=== PATIENT | male | born 1960 | race Caucasian/White ===

== ENCOUNTER 2017-08-05 20:30 | Observation (INO) | payer MEDICARE, SELFPAY ==
[~2017-08-05] VITALS: Ht 185.4 cm; Wt 96.3 kg
[~2017-08-05 20:30] MED LIST: ASPI325 PO; ASPI81CH PO; AZIT250 PO; CEPH500 PO; Ceftriaxone2 G1 IV; Cleocin HCl300 MG PO; FURO20 PO; Flonase 0.05% N16 GM; GLIP2.5ER PO; IBUP600 PO; INSLI100I; INSUASPI; INSULANPEN SC; IRBE75 PO; LORA.5 PO; METF500 PO; NYST100SU SS; OMEP40CA12; PARO20 PO; Percocet 5-3251 EACH PO; Prilosec Otc20 MG; Prilosec Otc20 MG PO; TAMS.4ER PO
[2017-08-05 20:50] LABS: BASOPHILS ABSOLUTE AUTO 0.05 K/mm3 (0.00-0.23); BASOPHILS PERCENT AUTO 1 % (0-2); EOSINOPHILS PERCENT AUTO 2 % (0-6); Hematocrit 38.1 % (37.0-53.0); Hemoglobin 12.6 g/dL (13.5-17.5); IMMATURE GRAN ABSOLUTE AUTO 0.02 K/mm3 (0.00-0.10); IMMATURE GRAN PERCENT AUTO 0 % (0-1); LYMPHOCYTES ABSOLUTE AUTO 1.07 K/mm3 (0.84-5.20); LYMPHOCYTES PERCENT AUTO 21 % (21-46); MONOCYTES PERCENT AUTO 8 % (4-13); Mean Corpuscular HGB 29.1 pg (26.0-34.0); Mean Corpuscular HGB Conc 33.1 g/dL (31.5-36.5); Mean Corpuscular Volume 88 fL (80-100); NEUTROPHILS ABSOLUTE AUTO 3.57 K/mm3 (1.96-9.15); NEUTROPHILS PERCENT AUTO 69 % (41-73); Platelet Count 100 K/mm3 (150-400); RDW Coefficient Variation 16.5 % (11.7-14.2); RDW Standard Deviation 52.5 fL (35.1-46.3); Red Blood Cell Count 4.33 M/mm3 (4.30-5.90); White Blood Cell Count 5.21 K/mm3 (4.00-11.30)
[2017-08-05 21:10] LABS: Alanine Aminotransfer (ALT/SGP 74 U/L (12-78); Albumin, Blood 2.9 g/dL (3.4-5.0); Albumin/Globulin Ratio 0.6 (0.8-1.8); Alk Phos 163 U/L (50-136); Anion Gap 11 mmol/L (6-16); Aspartate Aminotrans (AST/SGOT 83 U/L (12-37); Bilirubin, Total 0.4 mg/dL (0.1-1.0); Blood Urea Nitrogen 22 mg/dL (8-24); Bun/Creatinine Ratio 18.5 (12.0-20.0); CO2, Blood 24 mmol/L (21-32); Calcium, Blood 8.3 mg/dL (8.5-10.1); Chloride, Blood 106 mmol/L (98-108); Creatinine, Blood 1.19 mg/dL (0.60-1.20); Globulin, Blood 4.6 g/dL (2.2-4.0); Glomerular Filtration Rate >60 (60-); Glucose, Blood 233 mg/dL (70-99); Potassium, Blood 4.3 mmol/L (3.5-5.5); Sodium, Blood 141 mmol/L (136-145); Total Protein, Blood 7.5 g/dL (6.4-8.2); Troponin I <0.015 ng/mL (0.000-0.040)
[2017-08-05 21:15] LABS: Calcium, Ionized (POC) 1.11 mmol/L (1.10-1.46); Chloride (POC) 104 mmol/L (98-108); Creatinine (POC) 1.4 mg/dL (0.8-1.3); Glucose (ISTAT POC) 269 mg/dL (70-99); Hemoglobin (POC) 11.9 g/dL (13.5-17.5); Potassium (POC) 4.2 mmol/L (3.5-5.5); Sodium (POC) 141 mmol/L (135-148); Total CO2 (POC) 21 mmol/L (21-32)
[2017-08-06 02:57] LABS: BASOPHILS ABSOLUTE AUTO 0.02 K/mm3 (0.00-0.23); BASOPHILS PERCENT AUTO 1 % (0-2); EOSINOPHILS ABSOLUTE AUTO 0.07 K/mm3 (0.00-0.68); EOSINOPHILS PERCENT AUTO 2 % (0-6); Hematocrit 35.2 % (37.0-53.0); Hemoglobin 11.8 g/dL (13.5-17.5); IMMATURE GRAN ABSOLUTE AUTO 0.02 K/mm3 (0.00-0.10); IMMATURE GRAN PERCENT AUTO 1 % (0-1); LYMPHOCYTES ABSOLUTE AUTO 0.71 K/mm3 (0.84-5.20); LYMPHOCYTES PERCENT AUTO 23 % (21-46); MONOCYTES PERCENT AUTO 10 % (4-13); Mean Corpuscular HGB 29.7 pg (26.0-34.0); Mean Corpuscular HGB Conc 33.5 g/dL (31.5-36.5); Mean Corpuscular Volume 89 fL (80-100); Mean Platelet Volume 10.8 fL (9.1-12.4); NEUTROPHILS ABSOLUTE AUTO 1.99 K/mm3 (1.96-9.15); NEUTROPHILS PERCENT AUTO 64 % (41-73); Platelet Count 81 K/mm3 (150-400); RDW Coefficient Variation 16.5 % (11.7-14.2); RDW Standard Deviation 53.4 fL (35.1-46.3); Red Blood Cell Count 3.97 M/mm3 (4.30-5.90); White Blood Cell Count 3.11 K/mm3 (4.00-11.30)
[2017-08-06 03:20] LABS: CPK Creatine Kinase 76 U/L (39-308); Creatine Kinase MB Index 2.6 (0.0-4.0); Troponin I <0.015 ng/mL (0.000-0.040)
[2017-08-06 03:22] LABS: Cholesterol 141 mg/dL (50-200); Triglycerides 233 mg/dL (30-160); Troponin I <0.015 ng/mL (0.000-0.040)
[2017-08-06] MEDS ORDERED: ATOR20 PO (09:02)
[2017-08-06] MEDS ORDERED: METO25 PO (09:03)
[2017-08-06 09:09] LABS: CPK Creatine Kinase 67 U/L (39-308); Troponin I <0.015 ng/mL (0.000-0.040)
== END 2017-08-06 10:36 | disposition home or self-care (01) ==
LOC: ER 20:30 → PCU 20:31
PROVIDERS: Emergency Medicine; Family Medicine
DX: R07.89 Other chest pain (principal); R55 Syncope and collapse; I10 Essential (primary) hypertension; E11.9 Type 2 diabetes mellitus without complications; J90 Pleural effusion, not elsewhere classified; B19.20 Unspecified viral hepatitis C without hepatic coma; D64.9 Anemia, unspecified; D69.6 Thrombocytopenia, unspecified; E66.9 Obesity, unspecified; I82.90 Acute embolism and thrombosis of unspecified vein; F10.10 Alcohol abuse, uncomplicated; F17.210 Nicotine dependence, cigarettes, uncomplicated; Z79.82 Long term (current) use of aspirin; Z79.4 Long term (current) use of insulin; Z68.27 Body mass index [BMI] 27.0-27.9, adult; Z79.899 Other long term (current) drug therapy; Z86.19 Personal history of other infectious and parasitic diseases
CPT/HCPCS: 36415; 71046; 80047; 80053; 82465; 82550; 82553; 82947; 83880; 84478; 84484; 85014; 85025; 93005; 93010; 94762; 96361; 96372; 96374; 99285; G0378; J1650; J1815; J2405; J7030

== ENCOUNTER 2018-01-19 09:05 | Inpatient (IN) | payer MEDICARE ==
[~2018-01-19] VITALS: Ht 185.4 cm; Wt 94.2 kg
[~2018-01-19 09:05] MED LIST changes: +ATOR20 PO; +METO25 PO
[2018-01-19 09:30] LABS: Calcium, Ionized (POC) 1.02 mmol/L (1.10-1.46); Chloride (POC) 85 mmol/L (98-108); Creatinine (POC) 0.9 mg/dL (0.8-1.3); Glucose (ISTAT POC) >700 mg/dL (70-99); Hemoglobin (POC) 10.5 g/dL (13.5-17.5); Potassium (POC) 3.2 mmol/L (3.5-5.5); Sodium (POC) 126 mmol/L (135-148); Total CO2 (POC) 22 mmol/L (21-32)
[2018-01-19 09:43] LABS: BASOPHILS ABSOLUTE AUTO 0.04 K/mm3 (0.00-0.23); BASOPHILS PERCENT AUTO 0 % (0-2); EOSINOPHILS PERCENT AUTO 0 % (0-6); Hematocrit 29.5 % (37.0-53.0); Hemoglobin 7.5 g/dL (13.5-17.5); IMMATURE GRAN ABSOLUTE AUTO 0.05 K/mm3 (0.00-0.10); IMMATURE GRAN PERCENT AUTO 1 % (0-1); LYMPHOCYTES ABSOLUTE AUTO 0.38 K/mm3 (0.84-5.20); LYMPHOCYTES PERCENT AUTO 4 % (21-46); MONOCYTES ABSOLUTE AUTO 0.53 K/mm3 (0.16-1.47); MONOCYTES PERCENT AUTO 6 % (4-13); Mean Corpuscular HGB 18.2 pg (26.0-34.0); Mean Corpuscular HGB Conc 25.4 g/dL (31.5-36.5); Mean Corpuscular Volume 72 fL (80-100); NEUTROPHILS ABSOLUTE AUTO 8.16 K/mm3 (1.96-9.15); NEUTROPHILS PERCENT AUTO 89 % (41-73); Platelet Count 100 K/mm3 (150-400); RDW Coefficient Variation 18.2 % (11.7-14.2); RDW Standard Deviation 46.7 fL (35.1-46.3); Red Blood Cell Count 4.12 M/mm3 (4.30-5.90); White Blood Cell Count 9.16 K/mm3 (4.00-11.30)
[2018-01-19 09:51] LABS: PCO2 Arterial 30 mmHg (35-45); PO2 Arterial 79.8 mmHg (80-100); pH Blood Arterial 7.44 (7.35-7.45)
[2018-01-19 10:01] LABS: Troponin I <0.015 ng/mL (0.000-0.040)
[2018-01-19 10:07] LABS: Alanine Aminotransfer (ALT/SGP 46 U/L (12-78); Albumin, Blood 2.8 g/dL (3.4-5.0); Albumin/Globulin Ratio 0.6 (0.8-1.8); Alk Phos 195 U/L (50-136); Anion Gap 20 mmol/L (6-16); Aspartate Aminotrans (AST/SGOT 34 U/L (12-37); Bilirubin, Total 1.1 mg/dL (0.1-1.0); Blood Urea Nitrogen 15 mg/dL (8-24); Bun/Creatinine Ratio 16.3 (12.0-20.0); CO2, Blood 19 mmol/L (21-32); Calcium, Blood 8.2 mg/dL (8.5-10.1); Chloride, Blood 86 mmol/L (98-108); Creatinine, Blood 0.92 mg/dL (0.60-1.20); Globulin, Blood 4.8 g/dL (2.2-4.0); Glomerular Filtration Rate >60 (60-); Potassium, Blood 3.2 mmol/L (3.5-5.5); Sodium, Blood 125 mmol/L (136-145); Total Protein, Blood 7.6 g/dL (6.4-8.2)
[2018-01-19 10:10] LABS: Glucose, Blood 1023 mg/dL (70-99)
[2018-01-19 12:09] LABS: Glucose, Blood 944 mg/dL (70-99)
[2018-01-19] MEDS ORDERED: CHOL10002 (12:40)
[2018-01-19] MEDS ORDERED: Hair, Skin & N1 EACH PO (12:40)
[2018-01-19 13:54] LABS: Hematocrit 26.3 % (37.0-53.0)
[2018-01-19 14:21] LABS: Beta-hydroxybutyrate 6.3 mg/dL (0.2-2.8)
[2018-01-19 14:29] LABS: Albumin, Blood 2.7 g/dL (3.4-5.0); Anion Gap 14 mmol/L (6-16); Blood Urea Nitrogen 16 mg/dL (8-24); Bun/Creatinine Ratio 17.6 (12.0-20.0); CO2, Blood 24 mmol/L (21-32); Chloride, Blood 93 mmol/L (98-108); Creatinine, Blood 0.91 mg/dL (0.60-1.20); Glomerular Filtration Rate >60 (60-); Glucose, Blood 763 mg/dL (70-99); Phosphorus, Blood 2.2 mg/dL (2.5-4.9); Potassium, Blood 3.1 mmol/L (3.5-5.5); Sodium, Blood 131 mmol/L (136-145)
[2018-01-19 16:55] LABS: Glucose, Blood 679 mg/dL (70-99)
[2018-01-19 16:55] LABS: Glucose, Blood 611 mg/dL (70-99)
[2018-01-19 17:50] LABS: Albumin, Blood 2.3 g/dL (3.4-5.0); Anion Gap 10 mmol/L (6-16); Blood Urea Nitrogen 14 mg/dL (8-24); Bun/Creatinine Ratio 15.4 (12.0-20.0); CO2, Blood 25 mmol/L (21-32); Calcium, Blood 7.6 mg/dL (8.5-10.1); Chloride, Blood 101 mmol/L (98-108); Creatinine, Blood 0.91 mg/dL (0.60-1.20); Glomerular Filtration Rate >60 (60-); Glucose, Blood 585 mg/dL (70-99); Magnesium, Blood 1.9 mg/dL (1.6-2.4); Phosphorus, Blood 1.8 mg/dL (2.5-4.9); Potassium, Blood 3.6 mmol/L (3.5-5.5); Sodium, Blood 136 mmol/L (136-145)
[2018-01-19 17:54] LABS: Percent Saturation 3.6 % (20.0-50.0)
[2018-01-19] MEDS ORDERED: GABA300 PO (19:32)
[2018-01-19 19:45] LABS: Hematocrit 24.9 % (37.0-53.0); Hemoglobin 6.6 g/dL (13.5-17.5)
[2018-01-19 23:24] LABS: Albumin, Blood 2.3 g/dL (3.4-5.0); Anion Gap 9 mmol/L (6-16); Blood Urea Nitrogen 13 mg/dL (8-24); Bun/Creatinine Ratio 14.6 (12.0-20.0); CO2, Blood 25 mmol/L (21-32); Calcium, Blood 7.1 mg/dL (8.5-10.1); Chloride, Blood 106 mmol/L (98-108); Creatinine, Blood 0.89 mg/dL (0.60-1.20); Glomerular Filtration Rate >60 (60-); Glucose, Blood 320 mg/dL (70-99); Magnesium, Blood 1.8 mg/dL (1.6-2.4); Phosphorus, Blood 2.1 mg/dL (2.5-4.9); Potassium, Blood 3.4 mmol/L (3.5-5.5); Sodium, Blood 140 mmol/L (136-145)
[2018-01-20 04:26] LABS: BASOPHILS ABSOLUTE AUTO 0.02 K/mm3 (0.00-0.23); BASOPHILS PERCENT AUTO 0 % (0-2); EOSINOPHILS ABSOLUTE AUTO 0.14 K/mm3 (0.00-0.68); EOSINOPHILS PERCENT AUTO 2 % (0-6); Hematocrit 25.4 % (37.0-53.0); IMMATURE GRAN ABSOLUTE AUTO 0.06 K/mm3 (0.00-0.10); IMMATURE GRAN PERCENT AUTO 1 % (0-1); LYMPHOCYTES ABSOLUTE AUTO 1.02 K/mm3 (0.84-5.20); LYMPHOCYTES PERCENT AUTO 16 % (21-46); MONOCYTES PERCENT AUTO 6 % (4-13); Mean Corpuscular HGB 19.6 pg (26.0-34.0); Mean Corpuscular HGB Conc 27.6 g/dL (31.5-36.5); Mean Corpuscular Volume 71 fL (80-100); NEUTROPHILS ABSOLUTE AUTO 4.82 K/mm3 (1.96-9.15); NEUTROPHILS PERCENT AUTO 75 % (41-73); Platelet Count 84 K/mm3 (150-400); RDW Coefficient Variation 19.2 % (11.7-14.2); RDW Standard Deviation 48.8 fL (35.1-46.3); Red Blood Cell Count 3.58 M/mm3 (4.30-5.90); White Blood Cell Count 6.46 K/mm3 (4.00-11.30)
[2018-01-20 04:41] LABS: Anion Gap 8 mmol/L (6-16); Beta-hydroxybutyrate 0.6 mg/dL (0.2-2.8); Blood Urea Nitrogen 11 mg/dL (8-24); Bun/Creatinine Ratio 12.6 (12.0-20.0); CO2, Blood 25 mmol/L (21-32); Chloride, Blood 109 mmol/L (98-108); Creatinine, Blood 0.87 mg/dL (0.60-1.20); Glomerular Filtration Rate >60 (60-); Glucose, Blood 162 mg/dL (70-99); Phosphorus, Blood 2.2 mg/dL (2.5-4.9); Potassium, Blood 3.2 mmol/L (3.5-5.5); Sodium, Blood 142 mmol/L (136-145)
[2018-01-20 10:18] LABS: Hematocrit 29.8 % (37.0-53.0); Hemoglobin 8.3 g/dL (13.5-17.5)
[2018-01-20 14:22] LABS: Stool Occult Blood Guaiac 1 Neg (Neg)
[2018-01-20 16:12] LABS: Hematocrit 29.7 % (37.0-53.0); Hemoglobin 8.2 g/dL (13.5-17.5)
[2018-01-20 16:24] LABS: Albumin, Blood 2.3 g/dL (3.4-5.0); Anion Gap 7 mmol/L (6-16); Blood Urea Nitrogen 8 mg/dL (8-24); Bun/Creatinine Ratio 10.5 (12.0-20.0); CO2, Blood 25 mmol/L (21-32); Calcium, Blood 6.9 mg/dL (8.5-10.1); Chloride, Blood 109 mmol/L (98-108); Creatinine, Blood 0.76 mg/dL (0.60-1.20); Glomerular Filtration Rate >60 (60-); Glucose, Blood 147 mg/dL (70-99); Potassium, Blood 3.4 mmol/L (3.5-5.5); Sodium, Blood 141 mmol/L (136-145)
[2018-01-21 07:54] LABS: BASOPHILS ABSOLUTE AUTO 0.03 K/mm3 (0.00-0.23); BASOPHILS PERCENT AUTO 1 % (0-2); EOSINOPHILS ABSOLUTE AUTO 0.15 K/mm3 (0.00-0.68); EOSINOPHILS PERCENT AUTO 3 % (0-6); Hematocrit 28.5 % (37.0-53.0); IMMATURE GRAN ABSOLUTE AUTO 0.03 K/mm3 (0.00-0.10); IMMATURE GRAN PERCENT AUTO 1 % (0-1); LYMPHOCYTES ABSOLUTE AUTO 0.67 K/mm3 (0.84-5.20); LYMPHOCYTES PERCENT AUTO 15 % (21-46); MONOCYTES ABSOLUTE AUTO 0.41 K/mm3 (0.16-1.47); MONOCYTES PERCENT AUTO 9 % (4-13); Mean Corpuscular HGB 20.3 pg (26.0-34.0); Mean Corpuscular HGB Conc 28.1 g/dL (31.5-36.5); Mean Corpuscular Volume 72 fL (80-100); NEUTROPHILS ABSOLUTE AUTO 3.28 K/mm3 (1.96-9.15); NEUTROPHILS PERCENT AUTO 72 % (41-73); NRBC ABSOLUTE 0.02 K/mm3 (0.00-0.02); NRBC Auto 0.4 /100 WBC (0.0-0.2); Platelet Count 83 K/mm3 (150-400); RDW Coefficient Variation 18.8 % (11.7-14.2); RDW Standard Deviation 48.8 fL (35.1-46.3); Red Blood Cell Count 3.94 M/mm3 (4.30-5.90); White Blood Cell Count 4.57 K/mm3 (4.00-11.30)
[2018-01-21 08:10] LABS: Albumin, Blood 2.1 g/dL (3.4-5.0); Anion Gap 8 mmol/L (6-16); Blood Urea Nitrogen 11 mg/dL (8-24); Bun/Creatinine Ratio 11.5 (12.0-20.0); CO2, Blood 23 mmol/L (21-32); Calcium, Blood 7.3 mg/dL (8.5-10.1); Chloride, Blood 110 mmol/L (98-108); Creatinine, Blood 0.95 mg/dL (0.60-1.20); Glomerular Filtration Rate >60 (60-); Glucose, Blood 128 mg/dL (70-99); Phosphorus, Blood 2.2 mg/dL (2.5-4.9); Potassium, Blood 4.1 mmol/L (3.5-5.5); Sodium, Blood 141 mmol/L (136-145)
[2018-01-21] MEDS ORDERED: HUMALOG KW200 UNIT/1 SC ×2 (10:08→10:10)
[2018-01-21] MEDS ORDERED: K-Phos Origina500 MG PO (10:14)
[2018-01-21] MEDS ORDERED: DOCU100 PO (10:16)
[2018-01-21] MEDS ORDERED: FERROUS SULFATE PO (10:19)
== END 2018-01-21 10:53 | disposition home or self-care (01) | DRG 638 ==
LOC: ER 09:05 → ICUW 10:52
PROVIDERS: Emergency Medicine; Internal Medicine; Internal Medicine Gastroenterology
PROC: 0D578ZZ Destruction of Stomach, Pylorus, Via Natural or Artificial Opening Endoscopic (ICD-10-PCS; 2018-01-20)
PROC: 0D598ZZ Destruction of Duodenum, Via Natural or Artificial Opening Endoscopic (ICD-10-PCS; principal; 2018-01-20 13:30)
DX: E11.10 Type 2 diabetes mellitus with ketoacidosis without coma (principal); D62 Acute posthemorrhagic anemia; K76.6 Portal hypertension; Z79.4 Long term (current) use of insulin; Z79.82 Long term (current) use of aspirin; F17.210 Nicotine dependence, cigarettes, uncomplicated; S09.90XA Unspecified injury of head, initial encounter; I10 Essential (primary) hypertension; E11.40 Type 2 diabetes mellitus with diabetic neuropathy, unspecified; E78.5 Hyperlipidemia, unspecified; Z87.828 Personal history of other (healed) physical injury and trauma; E87.6 Hypokalemia; D50.9 Iron deficiency anemia, unspecified; D69.6 Thrombocytopenia, unspecified; I25.10 Atherosclerotic heart disease of native coronary artery without angina pectoris; I25.2 Old myocardial infarction; G56.00 Carpal tunnel syndrome, unspecified upper limb; K74.60 Unspecified cirrhosis of liver; B18.2 Chronic viral hepatitis C; E83.39 Other disorders of phosphorus metabolism; I99.8 Other disorder of circulatory system
CPT/HCPCS: 36415; 36430; 36600; 70450; 76705; 80047; 80048; 80053; 80069; 82010; 82105; 82271; 82272; 82728; 82803; 82947; 83036; 83540; 83550; 83735; 84100; 84484; 85014; 85018; 85025; 86850; 86900; 86901; 86923; 93005; 93010; 99285-25; C9113; J0696; J1430; J1815; J2405; J3480; J7030; J7040; J7060; J7120; P9016

== ENCOUNTER 2018-02-12 16:41 | Emergency (ER) | payer MEDICARE ==
[~2018-02-12] VITALS: Ht 193 cm; Wt 99.8 kg
[~2018-02-12 16:41] MED LIST changes: +CHOL10002; +DOCU100 PO; +FERROUS SULFATE PO; +GABA300 PO; +HUMALOG KW200 UNIT/1 SC; +Hair, Skin & N1 EACH PO; +K-Phos Origina500 MG PO
[2018-02-12 17:07] LABS: Hemoglobin 8.5 g/dL (13.5-17.5); Mean Corpuscular HGB Conc 28.3 g/dL (31.5-36.5); Mean Corpuscular Volume 74 fL (80-100); Mean Platelet Volume 10.7 fL (9.1-12.4); Platelet Count 130 K/mm3 (150-400); RDW Coefficient Variation 24.5 % (11.7-14.2); RDW Standard Deviation 65.5 fL (35.1-46.3); Red Blood Cell Count 4.05 M/mm3 (4.30-5.90); White Blood Cell Count 5.33 K/mm3 (4.00-11.30)
[2018-02-12 17:21] LABS: Anion Gap 10 mmol/L (6-16); Blood Urea Nitrogen 26 mg/dL (8-24); Bun/Creatinine Ratio 21.5 (12.0-20.0); CO2, Blood 23 mmol/L (21-32); Calcium, Blood 7.4 mg/dL (8.5-10.1); Chloride, Blood 108 mmol/L (98-108); Creatinine, Blood 1.21 mg/dL (0.60-1.20); Ethanol (Alcohol), Blood, Med 249 mg/dL; Glomerular Filtration Rate >60 (60-); Glucose, Blood 101 mg/dL (70-99); Potassium, Blood 3.9 mmol/L (3.5-5.5); Sodium, Blood 141 mmol/L (136-145)
[2018-02-12] MEDS ORDERED: Augmentin 875-1 EACH PO (18:13)
[2018-02-12] MEDS ORDERED: Ultram50 MG PO (18:23)
== END 2018-02-12 18:45 | disposition home or self-care (01) ==
LOC: ER 16:41
PROVIDERS: Emergency Medicine
DX: F10.129 Alcohol abuse with intoxication, unspecified (principal); S02.32XA Fracture of orbital floor, left side, initial encounter for closed fracture; S02.2XXA Fracture of nasal bones, initial encounter for closed fracture; S02.40DA Maxillary fracture, left side, initial encounter for closed fracture; E11.9 Type 2 diabetes mellitus without complications; I10 Essential (primary) hypertension; E78.5 Hyperlipidemia, unspecified; F17.210 Nicotine dependence, cigarettes, uncomplicated; Z79.899 Other long term (current) drug therapy; Z79.4 Long term (current) use of insulin; Y90.8 Blood alcohol level of 240 mg/100 ml or more; W18.30XA Fall on same level, unspecified, initial encounter
CPT/HCPCS: 70450; 70486; 72125; 80048; 85027; 99285-25; G0480

== ENCOUNTER 2018-09-12 13:39 | Inpatient (IN) | payer MEDICARE, SELFPAY ==
[~2018-09-12] VITALS: Ht 185.4 cm; Wt 100.5 kg
[~2018-09-12 13:39] MED LIST changes: +Augmentin 875-1 EACH PO; -GABA300 PO; -INSULANPEN SC; +Ultram50 MG PO
[2018-09-12 15:37] LABS: BASOPHILS ABSOLUTE AUTO 0.06 K/mm3 (0.00-0.23); BASOPHILS PERCENT AUTO 0 % (0-2); Hematocrit 35.2 % (37.0-53.0); Hemoglobin 11.7 g/dL (13.5-17.5); LYMPHOCYTES ABSOLUTE AUTO 0.29 K/mm3 (0.84-5.20); LYMPHOCYTES PERCENT AUTO 1 % (21-46); MONOCYTES ABSOLUTE AUTO 0.83 K/mm3 (0.16-1.47); MONOCYTES PERCENT AUTO 4 % (4-13); Mean Corpuscular HGB 30.2 pg (26.0-34.0); Mean Corpuscular HGB Conc 33.2 g/dL (31.5-36.5); Mean Corpuscular Volume 91 fL (80-100); Mean Platelet Volume 10.7 fL (9.1-12.4); Platelet Count 136 K/mm3 (150-400); RDW Coefficient Variation 13.3 % (11.7-14.2); RDW Standard Deviation 44.2 fL (35.1-46.3); Red Blood Cell Count 3.88 M/mm3 (4.30-5.90); White Blood Cell Count 22.24 K/mm3 (4.00-11.30)
[2018-09-12 15:40] LABS: EOSINOPHILS ABSOLUTE AUTO 0.05 K/mm3 (0.00-0.68); EOSINOPHILS PERCENT AUTO 0 % (0-6); IMMATURE GRAN ABSOLUTE AUTO 0.21 K/mm3 (0.00-0.10); IMMATURE GRAN PERCENT AUTO 1 % (0-1); NEUTROPHILS PERCENT AUTO 94 % (41-73)
[2018-09-12 15:58] LABS: Beta-hydroxybutyrate 10.2 mg/dL (0.2-2.8); Magnesium, Blood 1.9 mg/dL (1.6-2.4)
[2018-09-12 16:14] LABS: Albumin, Blood 2.2 g/dL (3.4-5.0); Albumin/Globulin Ratio 0.4 (0.8-1.8); Calcium, Blood 8.3 mg/dL (8.5-10.1); Creatinine, Blood 1.32 mg/dL (0.60-1.20); Globulin, Blood 5.9 g/dL (2.2-4.0); Total Protein, Blood 8.1 g/dL (6.4-8.2)
[2018-09-12 16:30] LABS: Calcium, Ionized (POC) 1.06 mmol/L (1.10-1.46); Chloride (POC) 90 mmol/L (98-108); Creatinine (POC) 1.3 mg/dL (0.8-1.3); Glucose (ISTAT POC) >700 mg/dL (70-99); Hemoglobin (POC) 12.6 g/dL (13.5-17.5); Potassium (POC) 5.9 mmol/L (3.5-5.5); Sodium (POC) 123 mmol/L (135-148); Total CO2 (POC) 21 mmol/L (21-32)
[2018-09-12 16:37] LABS: Base Excess Venous -6.6 mmol/L; Bicarbonate Venous 19.2 mmol/L (24.0-30.0); PCO2 Venous 41.6 mmHg (38-42); PO2 Venous 59.6 mmHg (38-42); pH Blood Venous 7.29 (7.34-7.37)
[2018-09-12] MEDS ORDERED: IRBE150 PO (16:52)
[2018-09-12] MEDS ORDERED: FURO40 PO (16:52)
[2018-09-12] MEDS ORDERED: Prozac20 MG PO (16:52)
[2018-09-12] MEDS ORDERED: Spironolactone100 MG PO (16:52)
[2018-09-12] MEDS ORDERED: OMEPRAZOLE MAGN20 MG PO (16:53)
[2018-09-12] MEDS ORDERED: Lopressor 25 mg25 MG PO (16:53)
[2018-09-12] MEDS ORDERED: BUSP5 PO (16:53)
[2018-09-12] MEDS ORDERED: GABA300 PO (16:54)
[2018-09-12] MEDS ORDERED: INSULANPEN SC (17:13)
[2018-09-12] MEDS ORDERED: Humalog100 UNIT/3 SC ×2 (17:24→17:26)
[2018-09-12] MEDS ORDERED: Apidra100 UNIT/2 (17:26)
[2018-09-12] MEDS ORDERED: THERA1 EACH PO (17:27)
[2018-09-12] MEDS ORDERED: ASPI81CH PO (17:27)
[2018-09-12] MEDS ORDERED: Ferosul325 MG PO (17:27)
[2018-09-12] MEDS ORDERED: Ibuprofen Ib200 MG PO (17:28)
[2018-09-12] MEDS ORDERED: Milk Thistle150 MG PO (17:29)
[2018-09-12 18:34] LABS: Glucose, Blood 685 mg/dL (70-99)
[2018-09-12 18:34] LABS: Influenza A Negative (NEGATIVE); Influenza B Negative (NEGATIVE)
--- NOTE | 2018-09-12 19:04 | NUR ---
ARRIVAL TO ICU 1824 - PT ARRIVES TO ICU AT THIS TIME. HE AWAKE, A/O, AND CALM. FLUSHED IN FACE BUT AFEBRILE AT THIS TIME. VSS. ARRIVES WITH INSULIN GTT AT 5 UNITS/HR; TITRATED TO 7 UNITS/HR BASED ON 1730 BLOOD GLUCOSE. BILAT CALCANEOUS ARE BLACK WITH FOUL ODOR BUT FEET ARE ELEVATED ON PILLOW. TO BEDSIDE. WILL GIVE BEDSIDE, HANDOFF REPORT TO NOC RN.
--- NOTE | 2018-09-12 19:15 | NUR ---
ASSUMED CARE ASSUMED CARE OF PATIENT. AWAKE AND ALERT. ORIENTED AND COOPERATIVE WITH CARE. REPOSTIONS SELF IN BED. FLAT AFFECT NOTED. SLOW VERBAL RESPONSE, BUT SPEECH IS CLEAR AND APPROPRIATE. MONITOR SHOWS NSR, RATE 80-90s. BP STABLE. REMAINS ON RA. RESPIRATIONS EVEN AND UNLABORED. DENIES C/O SOB OR DYSPNEA AT THIS TIME. BILATERAL LATERAL HEEL WOUNDS NOTED- SEE PICS. HEELS FLOATED OFF OF BED. C/O MILD DISCOMFORT IN HEELS, INCREASED WITH TOUCH. INSULIN GTT INFUSING @ 7UNITS/HR AT THIS TIME. VOIDING WITHOUT DIFFICULTY. DENIES C/O NAUSEA. SEE ADMIT ASSESSMENT FOR FULL ASSESSMENT.
[2018-09-12 19:44] LABS: Glucose, Blood 532 mg/dL (70-99)
--- NOTE | 2018-09-12 20:35 | NUR ---
CRITICAL LAB ENMANUEL BETANCOURT NP, NOTIFIED OF CRITICAL LACTIC ACID LEVEL OF 2.9 AND UPDATE ON STATUS. NEW ORDERS RECEIVED AT THIS TIME TO CLARIFY PREVIOUS IV FLUID ORDERS.
--- NOTE | 2018-09-12 23:30 | NUR ---
INSULIN GTT ENMANUEL BETANCOURT NP, NOTIFIED OF CURRENT CBG AND INSULIN GTT REQUIREMENTS WELL RECENT LACTIC ACID RESULT. NEW ORDERS RECEIVED TO STOP INSULIN GTT, CHECK CBG Q1H X 3, AND THEN CHANGE TO AC AND HS CBG WITH S/S COVERAGE.
--- NOTE | 2018-09-13 03:25 | NUR ---
CBG/INSULIN DR. VALDES NOTIFIED OF CBGs >200 SINCE INSULIN HAS BEEN OFF. NEW ORDER RECEIVED TO RESTART INSULIN GTT AT THIS TIME AND RE-EVALUATE CHANGING TO SQ INSULIN IN AM. INSULIN GTT RESTARTED AT 3UNITS/HR.
[2018-09-13 03:33] LABS: BASOPHILS ABSOLUTE AUTO 0.06 K/mm3 (0.00-0.23); BASOPHILS PERCENT AUTO 0 % (0-2); EOSINOPHILS ABSOLUTE AUTO 0.27 K/mm3 (0.00-0.68); EOSINOPHILS PERCENT AUTO 2 % (0-6); Hemoglobin 10.1 g/dL (13.5-17.5); IMMATURE GRAN ABSOLUTE AUTO 0.16 K/mm3 (0.00-0.10); IMMATURE GRAN PERCENT AUTO 1 % (0-1); LYMPHOCYTES ABSOLUTE AUTO 0.54 K/mm3 (0.84-5.20); LYMPHOCYTES PERCENT AUTO 3 % (21-46); MONOCYTES ABSOLUTE AUTO 0.77 K/mm3 (0.16-1.47); MONOCYTES PERCENT AUTO 4 % (4-13); Mean Corpuscular HGB 30.3 pg (26.0-34.0); Mean Corpuscular HGB Conc 33.7 g/dL (31.5-36.5); Mean Corpuscular Volume 90 fL (80-100); Mean Platelet Volume 10.1 fL (9.1-12.4); NEUTROPHILS ABSOLUTE AUTO 16.23 K/mm3 (1.96-9.15); NEUTROPHILS PERCENT AUTO 90 % (41-73); Platelet Count 108 K/mm3 (150-400); RDW Coefficient Variation 13.3 % (11.7-14.2); RDW Standard Deviation 43.9 fL (35.1-46.3); Red Blood Cell Count 3.33 M/mm3 (4.30-5.90); White Blood Cell Count 18.03 K/mm3 (4.00-11.30)
[2018-09-13 03:51] LABS: Anion Gap 8 mmol/L (6-16); Blood Urea Nitrogen 32 mg/dL (8-24); Bun/Creatinine Ratio 29.1 (12.0-20.0); CO2, Blood 21 mmol/L (21-32); Calcium, Blood 7.5 mg/dL (8.5-10.1); Chloride, Blood 103 mmol/L (98-108); Glomerular Filtration Rate >60 (60-); Glucose, Blood 270 mg/dL (70-99); Potassium, Blood 4.4 mmol/L (3.5-5.5)
[2018-09-13 03:53] LABS: Sodium, Blood 132 mmol/L (136-145)
--- NOTE | 2018-09-13 06:29 | NUR ---
SHIFT SUMMARY NO ACUTE CHANGES. PT OFF INSULIN GTT FOR SEVERAL HOURS DURING NOC, BUT RESTARTED D/T CBG >200s. INSULIN NOW INFUSING @ 3.5UNITS/HR. PLAN IS TO TRANSITION TO SLIDING SCALE INSULIN THIS AM PER DR. VALDES. WILL DISCUSS WITH DAY SHIFT HOSPITALISTS AT HIS REQUEST. NS CONTINUES @ 100CC/HR PER ORDER. VSS. MONITOR SHOWS NSR. REMAINS ON RA. RESPIRATIONS EVEN AND UNLABORED. DENIES DYSPNEA/SOB. OCCASIONAL NPC. VOIDING SMALL AMOUNTS OF URINE AT A TIME WITHOUT DIFFICULTY. BILATERAL HEEL DRSGS C/D/I. HEELS FLOATED OFF OF BED. WILL REPORT TO DAY SHIFT RN WHEN AVAILABLE.
--- NOTE | 2018-09-13 07:30 | NUR ---
Recieved report from Karla HERMAN. Patient resting in bed and awakens easily when entering room . He is on RA and sats in the mid 90%'s. He is able to communicate his needs but slow to respond. His CBG was 164 and he was to continue on Insulin gtt per Nurse notify note. I changed insulin gtt to [address] Chino came in and changed to HSS and give 25 units Lantus. He has bilateral 20ag IV in AC's, both dressings intact and site's WNL's. Right infusing Insulin gtt at 3 units/hr and the othe NS at 100ml/hr.
--- NOTE | 2018-09-13 09:30 | NUR ---
Patient ate 100% of breakfast. here now. No significant changes with patient. Will re-assess CBG at 1130. Patient resting in bed
--- NOTE | 2018-09-13 11:30 | NUR ---
Patient CBG 294 and 10 units humalog coverage and started on HSS. He is now med no tele and is awaiting transfer to [facility] floor. VSS. NS continues at 100ml/hr.
--- NOTE | 2018-09-13 14:29 | NUR ---
Patient has been resting in bed and awakens easily with care. He denies any current needs. VSS. He continues to be Medical no tele status. He has somewhat of flat affect and answer questions slowly but complete.
--- NOTE | 2018-09-13 17:30 | NUR ---
Dr Salas has been by and assessed bilateral feet and will be taking to OR to debride feet, sometime in am. CBG was 238, VSS.
[2018-09-13 18:46] LABS: Vancomycin, Trough 24.8 ug/mL (5.0-10.0)
--- NOTE | 2018-09-13 18:47 | NUR ---
PT ARRIVED TO THIS UNIT AT 1830 VIA HOSPTIAL BED. HE IS ORIENTED TO HIS NEW ROOM, CALL LIGHT IN PLACE. NS RUNNING AT 100 ML/HR. ATTENDS CHANGED, INCNTINENT VOID. WILL CONTINUE TO MONITOR.
--- NOTE | 2018-09-14 06:33 | NUR ---
SHIFT SUMMARY PT IS SLOW TO RESPOND AND HAS SOME NOTICEABLE TREMORS. PT STATES TREMORS ARE NORMAL FOR HIM. PT HAS BEEN ABLE TO USE URINAL WITH ASSISTANCE AT TIMES BUT REMAINS INCOTINENT MOSTLY. PT BED ALARM IS ARMED PT DOES FORGETS LIMITATIONS. PT HAS BEEN NPO SINCE MIDNIGHT. PT SLEPT FOR MOST OF SHIFT AND HAD NO COMPLAINTS. PT CURRENTLY SLEEPING AND BREATHING EASY. CALL LIGHT IN REACH.
--- NOTE | 2018-09-14 08:18 | NUR ---
PATIENT DID NOT EAT BREAKFAST THIS SHIFT DUE TO BEING NPO AT THIS TIME FOR A PROCEDURE.
--- NOTE | 2018-09-14 14:46 | NUR ---
PATIENT DID NOT EAT LUNCH THIS SHIFT DUE TO BEING NPO AT THIS TIME FOR A PROCEDURE.
--- NOTE | 2018-09-14 16:49 | NUR ---
"DAY SURGERY RN | Report to Vickie HERMAN and Jeniffer RN. Patient has remained stable throughout stay in same day surgery. Lactated Ringers running to gravity TKO and charted. Family at bedside. Dr. Coats has seen this patient and all day surgery documentation is accounted for. Versed handed off to Vickie HERMAN."
--- NOTE | 2018-09-14 19:15 | NUR ---
SHIFT SUMMARY PT JUST CAME BACK FROM DAY SURGERY. PT AWAKE, TALKING AND READY TO EAT DINNER. NO COMPLAINTS OF PAIN AT THIS TIME. REPORT GIVEN TO JUNIOR HERMAN. CALL LIGHT IN REACH.
--- NOTE | 2018-09-15 03:41 | NUR ---
PT HAVING WHEEZES AND SOME CRACKLES. RT CALLED FOR TX AND IV FLUIDS STOPPED. WILL CONTINUE TO ASSESS AND MONITOR. O2 VIA NC PLACED AT 2 LPM.
--- NOTE | 2018-09-15 07:36 | NUR ---
SHIFT SUMMARY PT RETURNED FROM OR TO HIS ROOM IN GOOD CONDITION. PT WAS FOUND LATER IN SHIFT WITH SOME INCREASED WHEEZES AND RT WAS CALLED. PT WAS TX BY RT AND PT WAS FOUND TO HAVE INCREASED SOB AND CRACKLES NOTED IN BASES OF LUNGS. PT INFUSING FLUIDS WAS STOPPED AND ONCOMING RN NOTIFIED. PT HOB WAS RAISED AND O2 VIA NC AT 2LPM WAS PLACED. PT SOB IMPROVED. PT HAD NO OTHER COMPLAINTS THROUGHOUT THE SHIFT. CALL LIGHT IN REACH
[2018-09-15 08:30] LABS: BASOPHILS ABSOLUTE AUTO 0.03 K/mm3 (0.00-0.23); BASOPHILS PERCENT AUTO 0 % (0-2); EOSINOPHILS ABSOLUTE AUTO 0.13 K/mm3 (0.00-0.68); EOSINOPHILS PERCENT AUTO 1 % (0-6); Hematocrit 29.9 % (37.0-53.0); Hemoglobin 9.6 g/dL (13.5-17.5); IMMATURE GRAN ABSOLUTE AUTO 0.21 K/mm3 (0.00-0.10); IMMATURE GRAN PERCENT AUTO 2 % (0-1); LYMPHOCYTES ABSOLUTE AUTO 0.55 K/mm3 (0.84-5.20); LYMPHOCYTES PERCENT AUTO 4 % (21-46); MONOCYTES ABSOLUTE AUTO 0.81 K/mm3 (0.16-1.47); MONOCYTES PERCENT AUTO 6 % (4-13); Mean Corpuscular HGB 29.8 pg (26.0-34.0); Mean Corpuscular HGB Conc 32.1 g/dL (31.5-36.5); Mean Platelet Volume 10.6 fL (9.1-12.4); NEUTROPHILS PERCENT AUTO 87 % (41-73); Platelet Count 108 K/mm3 (150-400); RDW Coefficient Variation 13.6 % (11.7-14.2); RDW Standard Deviation 46.2 fL (35.1-46.3); Red Blood Cell Count 3.22 M/mm3 (4.30-5.90); White Blood Cell Count 13.13 K/mm3 (4.00-11.30)
[2018-09-15 08:32] LABS: Mean Corpuscular Volume 93 fL (80-100)
[2018-09-15 08:57] LABS: Vancomycin, Trough 15.3 ug/mL (5.0-10.0)
[2018-09-15 09:11] LABS: Anion Gap 8 mmol/L (6-16); Blood Urea Nitrogen 24 mg/dL (8-24); Bun/Creatinine Ratio 21.8 (12.0-20.0); CO2, Blood 19 mmol/L (21-32); Calcium, Blood 7.7 mg/dL (8.5-10.1); Chloride, Blood 110 mmol/L (98-108); Glomerular Filtration Rate >60 (60-); Glucose, Blood 197 mg/dL (70-99); Potassium, Blood 4.6 mmol/L (3.5-5.5); Sodium, Blood 137 mmol/L (136-145)
--- NOTE | 2018-09-15 18:04 | NUR ---
SHIFT SUMMARY PATIENT WITHDRAWN. NO ACUTE CONCERNS ACCORDING TO THE PATIENT. PATIENT WAS TO HAVE QOUND VAC PLACEMENT TODAY AT 1500. NO PLACEMENT AND NO WOUND VAC HAS ARRIVED FOR THE PATIENT. CURRENTLY PATIENT IS WITHDRAWN IN HIS STATE. HE REPORTS THAT HE IS VERY TIRED.
--- NOTE | 2018-09-16 06:50 | NUR ---
SHIFT SUMMARY PT SLEPT WELL T/O NIGHT. AOX4, RESPONDS SLOWLY TO QUESTIONS BUT ANSWERS APPROPRIATELY & FOLLOWS DIRECTIONS. TREMORS W/BUE. VSS. WOUND VAC PLACED TO BILATERAL HEELS LAST NIGHT BY PROCEDURE NURSE ZANE LINDA. WOUND VAC IS PATENT & CURRENTLY HAS NO DRAINAGE IN CANISTER. PT DENIES N/V. THIS AM PT REPORTS HAVING A HEADACHE & IS MEDICATED W/TYLENOL PER ORDERS. LUNGS SOUND WHEEZY T/O ALL LOBES BUT PT DENIES ANY SOB, PT ON 2L O2 VIA NC. CALL LIGHT IS IN REACH.
--- NOTE | 2018-09-16 19:15 | NUR ---
SHIFT SUMMARY PATIENT PLEASANT. NO ACUTE CONCERNS.
[2018-09-17 05:21] LABS: BASOPHILS ABSOLUTE AUTO 0.07 K/mm3 (0.00-0.23); BASOPHILS PERCENT AUTO 0 % (0-2); Hematocrit 30.1 % (37.0-53.0); Hemoglobin 9.5 g/dL (13.5-17.5); LYMPHOCYTES ABSOLUTE AUTO 0.53 K/mm3 (0.84-5.20); LYMPHOCYTES PERCENT AUTO 3 % (21-46); MONOCYTES PERCENT AUTO 5 % (4-13); Mean Corpuscular HGB 28.8 pg (26.0-34.0); Mean Corpuscular HGB Conc 31.6 g/dL (31.5-36.5); Mean Corpuscular Volume 91 fL (80-100); Mean Platelet Volume 10.7 fL (9.1-12.4); Platelet Count 146 K/mm3 (150-400); RDW Coefficient Variation 13.9 % (11.7-14.2); RDW Standard Deviation 46.6 fL (35.1-46.3); White Blood Cell Count 17.58 K/mm3 (4.00-11.30)
[2018-09-17 05:29] LABS: EOSINOPHILS ABSOLUTE AUTO 0.16 K/mm3 (0.00-0.68); EOSINOPHILS PERCENT AUTO 1 % (0-6); IMMATURE GRAN ABSOLUTE AUTO 0.44 K/mm3 (0.00-0.10); IMMATURE GRAN PERCENT AUTO 3 % (0-1); NEUTROPHILS ABSOLUTE AUTO 15.58 K/mm3 (1.96-9.15); NEUTROPHILS PERCENT AUTO 89 % (41-73)
[2018-09-17 05:44] LABS: Bun/Creatinine Ratio 27.9 (12.0-20.0); Calcium, Blood 8.1 mg/dL (8.5-10.1); Creatinine, Blood 1.36 mg/dL (0.60-1.20); Potassium, Blood 5.7 mmol/L (3.5-5.5)
--- NOTE | 2018-09-17 06:41 | NUR ---
SHIFT SUMMARY PT HAS SLEPT SOUNDLY T/O NIGHT. DENIES N/V OR SOB. AOX4, SLOW TO RESPOND TO QUESTIONS. HAS EXPIRATORY WHEEZES T/O ALL LOBES OF LUNGS, DENIES NEED FOR BREATHING TX. REPORTS 5/10 PAIN IN BILATERAL FEET, MEDICATED 1X W/TYLENOL PER ORDERS. WOUND VAC IS IN PATENT & HAS SCANT AMOUNT DARK RED/BROWN DRAINAGE IN CANISTER. THIS AM PT INFORMED STAFF HE TRANSFERED SELF TO BSC TO USE RESTROOM, ENCOURAGED PT TO USE CALL LIGHT FOR HELP TO PREVENT A FALL & BED ALARM WAS PLACED. I WILL CONT TO MONITOR PT.
[2018-09-17 12:51] LABS: International Normalized Ratio 1.29; Prothrombin Time Results 13.4 Sec (9.7-11.5)
--- NOTE | 2018-09-17 17:34 | NUR ---
SHIFT SUMMARY PATIENT PLEASANT. HAS COMPLAINTS OF MILD BELLY PAIN. HE DENIES ANY CHANGE IN BOWEL TROUBLE. WILL ASSESS FOR ANY CHANGES AND PASS ON TO [employer]ER[employer].
--- NOTE | 2018-09-18 07:39 | NUR ---
SHIFT SUMMARY PT SLEPT WELL T/O NIGHT. AOX4, SLOW TO RESPOND TO QUESTIONS. AT BEGINNING OF SHIFT I NOTICED PTS SBP HAD BEEN TRENDING IN THE 80'S SINCE 10AM & EVEN HAD DROPPED DOWN TO [address] GRULLON & HE ORDERED A 500ML NS BOLUS, REASSESSED BP AFTER FLUIDS & SYSTOLIC HAD RAISED TO 95. PT DENIES ANY N/V OR SOB. REPORTS A LITTLE PAIN IN BILATERAL FOOT WOUNDS BUT DENIES THE NEED FOR ANY MEDICATION. WOUND VAC IS PATENT & DRESSINGS ARE C/D/I, NO SIGNIFICANT DRAINAGE NOTED. CALL LIGHT IS IN REACH.
[2018-09-18 08:38] LABS: International Normalized Ratio 1.34; Prothrombin Time Results 13.8 Sec (9.7-11.5)
[2018-09-18 08:49] LABS: Bun/Creatinine Ratio 32.6 (12.0-20.0); Creatinine, Blood 1.35 mg/dL (0.60-1.20); Potassium, Blood 5.3 mmol/L (3.5-5.5)
[2018-09-18 08:56] LABS: Vancomycin, Trough <0.8 ug/mL (5.0-10.0)
[2018-09-18] MEDS ORDERED: CEPH250A PO (10:13)
[2018-09-18] MEDS ORDERED: Bactrim 400-801 EACH PO (10:14)
--- NOTE | 2018-09-18 19:30 | NUR ---
1825 PT DISCHARGED HOME VIA PERSONAL VEHICLE ACCOMPANIED AND DRIVEN BY . PT ESCORTED TO FACILITY ENTRANCE BY THIS RN AND CARDIAC CATHETERIZATION TECHNICIAN VIA CARDIAC CATHETERIZATION TECHNICIAN, ASSISTED INTO FULL SIZE TRUCK WITHOUT ISSUE. PRIOR TO D/C IV REMOVED, WOUND VAC DRESSING CHANGED AND HOME WOUND VAC SET UP, WOUND DOCUMENTATION COMPLETED. D/C PAPER WORK REVIEWED WITH AND COPY SENT WITH PT.
== END 2018-09-18 18:26 | disposition home or self-care (01) | DRG 853 ==
LOC: ER 13:39 → MEDS 17:36 → ICUW 17:36 → MEDS 09-13 18:23 → ENPENDDIS 09-18 09:33 → MEDS 09-18 18:26
PROVIDERS: Emergency Medicine; Nurse Practitioner Acute Care; Pharmacist; Physician Assistant; Podiatrist; ADMIT Hospitalist
PROC: 0JBR0ZZ Excision of Left Foot Subcutaneous Tissue and Fascia, Open Approach (ICD-10-PCS; 2018-09-14)
PROC: 0KBV0ZZ Excision of Right Foot Muscle, Open Approach (ICD-10-PCS; principal; 2018-09-14 16:00)
DX: A41.02 Sepsis due to Methicillin resistant Staphylococcus aureus (principal); J18.1 Lobar pneumonia, unspecified organism; L03.116 Cellulitis of left lower limb; E11.52 Type 2 diabetes mellitus with diabetic peripheral angiopathy with gangrene; I96 Gangrene, not elsewhere classified; E11.621 Type 2 diabetes mellitus with foot ulcer; E11.65 Type 2 diabetes mellitus with hyperglycemia; R65.20 Severe sepsis without septic shock; F10.10 Alcohol abuse, uncomplicated; I73.9 Peripheral vascular disease, unspecified; K70.10 Alcoholic hepatitis without ascites; I12.9 Hypertensive chronic kidney disease with stage 1 through stage 4 chronic kidney disease, or unspecified chronic kidney disease; E11.22 Type 2 diabetes mellitus with diabetic chronic kidney disease; N18.3 Chronic kidney disease, stage 3 (moderate); I25.10 Atherosclerotic heart disease of native coronary artery without angina pectoris; I25.2 Old myocardial infarction; E78.5 Hyperlipidemia, unspecified; T25.022A Burn of unspecified degree of left foot, initial encounter; T25.021A Burn of unspecified degree of right foot, initial encounter; Y63.5 Inappropriate temperature in local application and packing; E87.5 Hyperkalemia; Z87.891 Personal history of nicotine dependence
CPT/HCPCS: 36415; 71045; 73620; 73630; 80047; 80048; 80053; 80202; 82010; 82565; 82803; 82947; 83605; 83735; 85014; 85025; 85610; 85651; 86140; 87040; 87070; 87071; 87075; 87076; 87077; 87147; 87185; 87186; 87205; 87804; 93005; 93010; 93922; 94640; 94760; 96361; 96374; 97116; 97161; 97530; 99285-25; J0690; J0692; J1815; J2250; J2405; J3370; J7030; J7040; J7050; J7120

== ENCOUNTER 2018-09-22 14:15 | Inpatient (IN) | payer MEDICARE, OTHER ==
[~2018-09-22] VITALS: Ht 185.4 cm; Wt 111.4 kg
[~2018-09-22 14:15] MED LIST changes: +Apidra100 UNIT/2; +BUSP5 PO; +Bactrim 400-801 EACH PO; +CEPH250A PO; +FURO40 PO; +Ferosul325 MG PO; +GABA300 PO; +Humalog100 UNIT/3 SC; +INSULANPEN SC; +IRBE150 PO; +Ibuprofen Ib200 MG PO; +Lopressor 25 mg25 MG PO; +Milk Thistle150 MG PO; +OMEPRAZOLE MAGN20 MG PO; +Prozac20 MG PO; +Spironolactone100 MG PO; +THERA1 EACH PO
[2018-09-22 14:40] LABS: Base Excess Venous -15.5 mmol/L; Bicarbonate Venous 12.9 mmol/L (24.0-30.0); PCO2 Venous 40.7 mmHg (38-42); PO2 Venous 47.1 mmHg (38-42)
[2018-09-22 14:41] LABS: pH Blood Venous 7.13 (7.34-7.37)
[2018-09-22 14:50] LABS: Hematocrit 34.2 % (37.0-53.0); Hemoglobin 10.7 g/dL (13.5-17.5); Mean Corpuscular HGB 29.1 pg (26.0-34.0); Mean Corpuscular HGB Conc 31.3 g/dL (31.5-36.5); Mean Corpuscular Volume 93 fL (80-100); Mean Platelet Volume 10.8 fL (9.1-12.4); NRBC ABSOLUTE 0.05 K/mm3 (0.00-0.02); NRBC Auto 0.2 /100 WBC (0.0-0.2); Platelet Count 230 K/mm3 (150-400); RDW Coefficient Variation 14.7 % (11.7-14.2); RDW Standard Deviation 50.4 fL (35.1-46.3); Red Blood Cell Count 3.68 M/mm3 (4.30-5.90); White Blood Cell Count 27.89 K/mm3 (4.00-11.30)
[2018-09-22 15:14] LABS: BAND PERCENT MAN 6 % (0-8); BASOPHILS PERCENT MAN 0 % (0-2); EOSINOPHILS PERCENT MAN 0 % (0-6); METAMYELOCYTE ABSOLUTE MAN 0.27 K/mm3 (0.00-0.00); METAMYELOCYTE PERCENT MAN 1 % (0-0); MONOCYTES ABSOLUTE MAN 0.83 K/mm3 (0.16-1.47); MONOCYTES PERCENT MAN 3 % (4-13); MYELOCYTE ABSOLUTE MAN 0.27 K/mm3 (0.00-0.00); MYELOCYTE PERCENT MAN 1 % (0-0); NEUTROPHILS ABSOLUTE MAN 26.49 K/mm3 (1.96-9.15); SEG NEUTROPHILS PERCENT MAN 89 % (41-73); TOTAL CELLS COUNTED 100
[2018-09-22 15:17] LABS: Alanine Aminotransfer (ALT/SGP 20 U/L (12-78); Albumin, Blood 1.3 g/dL (3.4-5.0); Albumin/Globulin Ratio 0.2 (0.8-1.8); Alk Phos 442 U/L (50-136); Anion Gap 13 mmol/L (6-16); Aspartate Aminotrans (AST/SGOT 30 U/L (12-37); Bilirubin, Total 0.5 mg/dL (0.1-1.0); Blood Urea Nitrogen 75 mg/dL (8-24); Bun/Creatinine Ratio 32.5 (12.0-20.0); CO2, Blood 14 mmol/L (21-32); Calcium, Blood 8.4 mg/dL (8.5-10.1); Chloride, Blood 109 mmol/L (98-108); Creatinine, Blood 2.31 mg/dL (0.60-1.20); Ethanol (Alcohol), Blood, Med <3 mg/dL; Globulin, Blood 5.7 g/dL (2.2-4.0); Glomerular Filtration Rate 31 (60-); Glucose, Blood 219 mg/dL (70-99); Potassium, Blood 5.8 mmol/L (3.5-5.5); Sodium, Blood 136 mmol/L (136-145); Troponin I <0.015 ng/mL (0.000-0.040)
[2018-09-22 15:21] LABS: International Normalized Ratio 1.88; Prothrombin Time Results 18.8 Sec (9.7-11.5)
[2018-09-22 15:46] LABS: Beta-hydroxybutyrate 0.6 mg/dL (0.2-2.8)
[2018-09-22 16:29] LABS: PCO2 Arterial 34.8 mmHg (35-45); PO2 Arterial 259 mmHg (80-100); pH Blood Arterial 7.19 (7.35-7.45)
[2018-09-22 16:45] LABS: Source, Urine Catheter
[2018-09-22 16:53] LABS: Bilirubin, Urine Neg (Neg); Blood, Urine 1+ (Neg); Glucose Qualitative, Urine Neg (Neg); Ketones, Urine Neg (Neg); Leukocyte Esterase, Urine 1+ (Neg); Nitrite, Urine Neg (Neg); Protein, Urine 1+ (Neg); Urobilinogen, Urine NORM (Normal)
[2018-09-22 17:15] LABS: Appearance, Urine Hazy (Clear); Color, Urine Yellow (P-Yellow)
[2018-09-22 17:16] LABS: Squamous Epithelial Cells Not Seen /hpf (Few)
[2018-09-22 17:22] LABS: Red Blood Cells, Urine Not Seen /hpf (0-2)
[2018-09-22 17:23] LABS: Amorphous Light (0-Heavy); Bacteria Not Seen /hpf
--- NOTE | 2018-09-22 18:56 | NUR ---
ARRIVAL TO ICU PT ARRIVES AT 1800 TO ICU FROM ED. PT IS INTUBATED WITH PROPOFOL GTT AT 30 MCG. BP 70S/40S. PROPOFOL GTT TURNED OFF SHORTLY AFTER ARRIVAL. MD BRANDT BEDSIDE SHORTLY AFTER ARRIVAL.BP REMAINS LOW AFTER PROPOFL GTT OFF. MD TALKED WITH ABOUT STATUS AND VERBAL CONSENT TO INSERT CENTRAL LINE. MD NOW INSERTERTING CENTRAL LINE. NS BOLUS 1L INFUSING WO PER MD ORDER. LEVAQUIN INFUSING. ATTEMPTING TO OBTAIN MEDICATIONS FROM PHARMACY FOR ADMINISTRATION. BUE RESTRAINTS APPLIED. FENTANYL 100 MCG AND VERSED 4 MG IVP GIVEN DURING CENTRAL LINE INSERTION PROCEDURE. WILL GIVE BEDSIDE, HANDOFF REPORT TO NOC RN.
--- NOTE | 2018-09-22 21:05 | NUR ---
CENTRAL LINE X-RAY CONFIRMATION SPOKE WITH DR. SHEPHERD WHO REVIEWED CENTRAL LINE PLACEMENT ON X-RAY AND CONFIRMED OK TO INFUSE.
[2018-09-22 23:06] LABS: Base Excess Venous -11.7 mmol/L; Bicarbonate Venous 15.9 mmol/L (24.0-30.0); PCO2 Venous 31.3 mmHg (38-42); PO2 Venous 101 mmHg (38-42); pH Blood Venous 7.29 (7.34-7.37)
[2018-09-22 23:07] LABS: Hematocrit 26.8 % (37.0-53.0); Hemoglobin 8.7 g/dL (13.5-17.5); Mean Corpuscular HGB 29.6 pg (26.0-34.0); Mean Corpuscular HGB Conc 32.5 g/dL (31.5-36.5); Mean Corpuscular Volume 91 fL (80-100); Mean Platelet Volume 10.7 fL (9.1-12.4); NRBC ABSOLUTE 0.05 K/mm3 (0.00-0.02); NRBC Auto 0.2 /100 WBC (0.0-0.2); Platelet Count 223 K/mm3 (150-400); RDW Coefficient Variation 14.8 % (11.7-14.2); RDW Standard Deviation 49.4 fL (35.1-46.3); Red Blood Cell Count 2.94 M/mm3 (4.30-5.90); White Blood Cell Count 30.45 K/mm3 (4.00-11.30)
[2018-09-22 23:19] LABS: Adenovirus Not Detected (NOT DETECT); Bordetella pertussis Not Detected (NOT DETECT); Chlamydophila pneumoniae Not Detected (NOT DETECT); Coronavirus 229E Not Detected (NOT DETECT); Coronavirus HKU1 Not Detected (NOT DETECT); Coronavirus NL63 Not Detected (NOT DETECT); Coronavirus OC43 Not Detected (NOT DETECT); Human Metapneumovirus Not Detected (NOT DETECT); Human Rhinovirus/Enterovirus Detected (NOT DETECT); Influenza A Not Detected (NOT DETECT); Influenza A/2009-H1 Not Detected (NOT DETECT); Influenza A/H1 Not Detected (NOT DETECT); Influenza A/H3 Not Detected (NOT DETECT); Influenza B Not Detected (NOT DETECT); Mycoplasma pneumoniae Not Detected (NOT DETECT); Parainfluenza Virus 1 Not Detected (NOT DETECT); Parainfluenza Virus 2 Not Detected (NOT DETECT); Parainfluenza Virus 3 Not Detected (NOT DETECT); Parainfluenza Virus 4 Not Detected (NOT DETECT); Respiratory Syncytial Virus Not Detected (NOT DETECT)
[2018-09-22 23:21] LABS: Albumin/Globulin Ratio 0.2 (0.8-1.8); Bilirubin, Total 0.5 mg/dL (0.1-1.0); Bun/Creatinine Ratio 32.7 (12.0-20.0); Calcium, Blood 7.7 mg/dL (8.5-10.1); Creatinine, Blood 1.99 mg/dL (0.60-1.20); Globulin, Blood 4.6 g/dL (2.2-4.0); Potassium, Blood 5.6 mmol/L (3.5-5.5); Total Protein, Blood 5.6 g/dL (6.4-8.2)
[2018-09-22 23:23] LABS: BAND PERCENT MAN 6 % (0-8); BASOPHILS PERCENT MAN 0 % (0-2); EOSINOPHILS PERCENT MAN 0 % (0-6); MYELOCYTE PERCENT MAN 1 % (0-0); NEUTROPHILS ABSOLUTE MAN 28.92 K/mm3 (1.96-9.15); SEG NEUTROPHILS PERCENT MAN 89 % (41-73); TOTAL CELLS COUNTED 100
[2018-09-22 23:24] LABS: LYMPHOCYTES PERCENT MAN 1 % (21-46); MONOCYTES ABSOLUTE MAN 0.91 K/mm3 (0.16-1.47); MONOCYTES PERCENT MAN 3 % (4-13)
--- NOTE | 2018-09-23 00:15 | NUR ---
DR. SHEPHERD COMMUNICATION DISCUSSED WITH DR. SHEPHERD RPEAT H+H, VBG, RESP PANEL, POTASSIUM. NO NEW ORDERS. DISCUSSED TEMP. ORDER FOR BEAR HUGGER IF TEMP LESS THAN 95 DEGREES F. CONFIRMED DISCONTINUATION OF LACTATED RINGERS, PER DR. SHEPHERD PT TO BE ON NO MAINTENANCE FLUID AT THIS TIME.
[2018-09-23 04:16] LABS: Hematocrit 27.9 % (37.0-53.0); Mean Corpuscular HGB 28.7 pg (26.0-34.0); Mean Corpuscular HGB Conc 32.3 g/dL (31.5-36.5); Mean Corpuscular Volume 89 fL (80-100); Mean Platelet Volume 10.6 fL (9.1-12.4); NRBC ABSOLUTE 0.07 K/mm3 (0.00-0.02); NRBC Auto 0.2 /100 WBC (0.0-0.2); Platelet Count 233 K/mm3 (150-400); RDW Standard Deviation 48.3 fL (35.1-46.3); Red Blood Cell Count 3.14 M/mm3 (4.30-5.90); White Blood Cell Count 28.94 K/mm3 (4.00-11.30)
[2018-09-23 04:34] LABS: Albumin, Blood 1.1 g/dL (3.4-5.0); Albumin/Globulin Ratio 0.2 (0.8-1.8); Bilirubin, Total 1.1 mg/dL (0.1-1.0); Bun/Creatinine Ratio 32.6 (12.0-20.0); Calcium, Blood 7.9 mg/dL (8.5-10.1); Creatinine, Blood 1.93 mg/dL (0.60-1.20); Globulin, Blood 4.8 g/dL (2.2-4.0); Potassium, Blood 5.4 mmol/L (3.5-5.5); Total Protein, Blood 5.9 g/dL (6.4-8.2)
[2018-09-23 05:48] LABS: BAND PERCENT MAN 11 % (0-8); BASOPHILS PERCENT MAN 0 % (0-2); EOSINOPHILS ABSOLUTE MAN 0.28 K/mm3 (0.00-0.68); EOSINOPHILS PERCENT MAN 1 % (0-6); LYMPHOCYTES ABSOLUTE MAN 0.86 K/mm3 (0.84-5.20); LYMPHOCYTES PERCENT MAN 3 % (21-46); METAMYELOCYTE ABSOLUTE MAN 0.28 K/mm3 (0.00-0.00); METAMYELOCYTE PERCENT MAN 1 % (0-0); MONOCYTES ABSOLUTE MAN 0.86 K/mm3 (0.16-1.47); MONOCYTES PERCENT MAN 3 % (4-13); MYELOCYTE ABSOLUTE MAN 0.28 K/mm3 (0.00-0.00); MYELOCYTE PERCENT MAN 1 % (0-0); NEUTROPHILS ABSOLUTE MAN 26.33 K/mm3 (1.96-9.15); SEG NEUTROPHILS PERCENT MAN 80 % (41-73); TOTAL CELLS COUNTED 100
--- NOTE | 2018-09-23 07:42 | NUR ---
SUMMARY BP MANAGED WITH LEVOPHED THROUGHOUT NIGHT. TEMP LOW LAST NIGHT, IMPROVED WITH WARM BLANKET PLACEMENT. PT HAS CONSISTENTLY BEEN ABLE TO FOLLOW COMMANDS, THOUGH HAS HAD SEDATION TITRATED TO EFFECT FOR COMFORT DUE TO SIGNS OF ANXIETY. AFTER SPONTANEOUS BREATHING TRIAL THIS MORNING, PT HAS BEEN ON MINIMAL SEDATION AND REMAINED CALM. VENT SETTINGS CHANGED TO SPONTANEOUS THIS MORNING FOR BREATHING TRIAL AND PT HAS MANAGED THESE SETTINGS SINCE THEN. SEE RT NOTE. URINE NOTED TO BE BLOOD TINGED THIS MORNING IN BHATTI CATH. DRESSINGS ON BILATERAL FEET CHANGED WITH EXCEPTION OF FOAM WOUND VAC DRESSINGS, PHOTOGRAPHED AND REDRESSED. FAMILY AT BEDSIDE THROUGHOUT NIGHT, INVOLVED IN CARE, ASKING FREQUENT QUESTIONS, AND PROVIDED WITH UPDATES UPON REQUESTING. ADMISSION HISTORY AND MED REC COMPLETED WITH ASSISTANCE FROM . REPORT GIVEN TO FRANCA DAY SHIFT RN.
--- NOTE | 2018-09-23 07:45 | NUR ---
DR PARIS ROUNDS DISCUSSED WITH DR PARIS THOUGHTS ON PODIATRY CONSULT, PLAN TO READDRESS THIS TUESDAY. DR PARIS NOTIFIED OF CHANGE IN PT'S URINE FROM YELLOW TO BLOOD-TINGED WITH SEDIMENT AROUND MIDNIGHT ACCORDING TO NOC RN, DARIUS. NO CHANGES TO PLAN OF CARE AT THIS TIME. WILL CONT TO MONITOR PT.
--- NOTE | 2018-09-23 08:11 | NUR ---
LOWER VENOUS DUPLEX TECH AT BEDSIDE TO PERFORM LOWER VENOUS DUPLEX STUDY. PER TECH PT NEGATIVE FOR DVT.
[2018-09-23 13:26] LABS: Base Excess Venous -11.4 mmol/L; Bicarbonate Venous 16.1 mmol/L (24.0-30.0); PCO2 Venous 34.5 mmHg (38-42); PO2 Venous 90.3 mmHg (38-42)
[2018-09-23 13:27] LABS: pH Blood Venous 7.27 (7.34-7.37)
--- NOTE | 2018-09-23 17:00 | NUR ---
SHIFT SUMMARY PT REMAINS INTUBATED, SEDATED ON PROPOFOL AT 10MCG. PT OPENS EYES SPONTANEOUSLY AND NODS "YES" OR SHAKES "NO" IN RESPONSE TO QUESTIONS. PT FOLLOWS COMMANDS. PT DENIES ANY PAIN OR DISCOMFORT. PER DR SHEPHERD PLAN TO EXTUBATE TOMORROW IF PT REMAINS STABLE THROUGH THE NIGHT. VENT SETTINGS ON SPONTANEOUS THROUGHOUT SHIFT, RT TO CHANGE VENT TO AC AT 1700. LS COARSE T/O. ETT SUCTIONING NONPRODUCTIVE. RHYTHM REMAINS NORMAL SINUS. BP STABLE ON LEVOPHED AT 2MCG, TITRATED TO EFFECT WITH GOAL TO TITRATE OFF. SEE FLOWSHEET FOR VS. OGT CLAMPED. PT REPOSITIONED Q2H PRN FOR PRESSURE RELIEF. PT EDEMATOUS, SKIN FRAGILE. WOUNDS TO FEET WITH FOAM DRESSINGS AND WOUND VAC IN PLACE. NO ACUTE CHANGES T/O SHIFT. BED IN LOWEST POSITION, SIDE RAILS RAISED. FAMILY AT BEDSIDE. WILL CONT TO MONITOR PT.
[2018-09-23 18:25] LABS: Vancomycin, Trough 18.2 ug/mL (5.0-10.0)
--- NOTE | 2018-09-23 19:15 | NUR ---
ASSUMING CARE OF PT AT THIS TIME. PT REPORT RECEIVED AT BEDSIDE WITH OFFGOING NURSE, FRANCA HERMAN. PT LAYING IN BED, INTUBATED, AND SEDATED UPON ENTERING THE ROOM. VS STABLE - SEE VS FS. PT DOES NOT APPEAR TO BE IN DISTRESS AT THIS TIME. WILL REVIEW PLAN OF CARE.
--- NOTE | 2018-09-23 19:30 | NUR ---
ASSESSMENT PT CALM, COOPERATIVE, RESPONDS TO VERBAL STIMULI, OPENS EYES TO SOUND, A&O TO SELF, FOLLOWS COMMANDS, NODDING HEAD Y/N TO MOST QUESTIONS, TRACKS WITH EYES. PROPOFOL AT 30 MCG/KG/MIN - WILL TITRATE TO EFFECT. PT NODDED HEAD YES TO SENSATION INTACT BUE'S. PT NODDED HEAD NO TO N/T BUE'S. PT NODDED HEAD YES TO N/T BLE'S. PT LÓPEZ. WEAK MOVEMENT NOTED. PT DENIES PAIN/DISCOMFORT. NO S/SX OF PAIN/DISCOMFORT NOTED. PT IN BILAT WRIST RESTRAINTS TO PROTECT VITAL LINES/CORDS/TUBES AND TO PROTECT FROM SELF-EXTUBATION. LUNGS COARSE, DIMINISHED LOWER LOBES. VENT SETTINGS: AC 22, TV 550, PEEP 5, FIO2 40%. OXY SAT >95%. RR 20'S. SIMI, RT SX VIA ETT PRIOR TO ASSUMING CARE: SMALL AMOUNTS OF THICK BISHOP SECRETIONS. PLACED SPECIMEN CHAMBER FOR SPUTUM SAMPLE. WAITING FOR SPUTUM SAMPLE AT THIS TIME. AFEBRILE. NSR. HR 80'S. BP STABLE (SEE VS FS) WHILE ON LEVOPHED DRIP. LEVOPHED DRIP AT 2 MCG/MIN - WILL TITRATE TO EFFECT. FAINT PULSES. WARM, PINK SKIN. EDEMA NOTED. HYPOACTIVE BT X4 QUADRANTS. ABD SOFT, NONTENDER, SEVERE DIST. OG IN PLACE. OG TO LIS: BILE SECRETIONS. NPO D/T INTUBATION. F/C IN PLACE: YELLOW URINE WITH CLOTS AND SEDIMENT. WOUND VAC TO BILAT FT. PT'S FAMILY AT BEDSIDE AND PLANNING TO SPEND NIGHT IN ICU. PIV X2. CL LEFT IJ. NS TKO AT 10 ML/HR.
--- NOTE | 2018-09-23 19:36 | NUR ---
family vigilant ad fatigued at bedside. will try again
--- NOTE | 2018-09-23 23:40 | NUR ---
DR. VALDES INFORMED DR. VALDES OF BLOOD CX X1: GRAM NEGATIVE BACILLI. PT ON ZOYSN AND VANCO AT THIS TIME. NO NEW ORDERS AT THIS TIME.
[2018-09-24 03:13] LABS: BASOPHILS ABSOLUTE AUTO 0.05 K/mm3 (0.00-0.23); BASOPHILS PERCENT AUTO 0 % (0-2); Hematocrit 26.9 % (37.0-53.0); Hemoglobin 8.5 g/dL (13.5-17.5); LYMPHOCYTES ABSOLUTE AUTO 0.63 K/mm3 (0.84-5.20); LYMPHOCYTES PERCENT AUTO 3 % (21-46); MONOCYTES ABSOLUTE AUTO 0.68 K/mm3 (0.16-1.47); MONOCYTES PERCENT AUTO 4 % (4-13); Mean Corpuscular HGB 28.5 pg (26.0-34.0); Mean Corpuscular HGB Conc 31.6 g/dL (31.5-36.5); Mean Corpuscular Volume 90 fL (80-100); Mean Platelet Volume 10.1 fL (9.1-12.4); NRBC ABSOLUTE 0.02 K/mm3 (0.00-0.02); NRBC Auto 0.1 /100 WBC (0.0-0.2); Platelet Count 162 K/mm3 (150-400); RDW Standard Deviation 49.6 fL (35.1-46.3); Red Blood Cell Count 2.98 M/mm3 (4.30-5.90); White Blood Cell Count 19.07 K/mm3 (4.00-11.30)
[2018-09-24 03:14] LABS: EOSINOPHILS PERCENT AUTO 1 % (0-6); IMMATURE GRAN ABSOLUTE AUTO 0.56 K/mm3 (0.00-0.10); IMMATURE GRAN PERCENT AUTO 3 % (0-1); NEUTROPHILS ABSOLUTE AUTO 16.95 K/mm3 (1.96-9.15); NEUTROPHILS PERCENT AUTO 89 % (41-73)
[2018-09-24 03:30] LABS: Albumin, Blood 1.1 g/dL (3.4-5.0); Albumin/Globulin Ratio 0.2 (0.8-1.8); Bilirubin, Total 0.7 mg/dL (0.1-1.0); Bun/Creatinine Ratio 33.3 (12.0-20.0); Calcium, Blood 7.8 mg/dL (8.5-10.1); Creatinine, Blood 1.59 mg/dL (0.60-1.20); Globulin, Blood 4.6 g/dL (2.2-4.0); Potassium, Blood 5.5 mmol/L (3.5-5.5); Total Protein, Blood 5.7 g/dL (6.4-8.2)
--- NOTE | 2018-09-24 04:18 | NUR ---
SHIFT ASSESSMENT NO ACUTE CHANGES NOTED T/O SHIFT. PT CALM, COOPERATIVE, RESPONDS TO VERBAL STIMULI, OPENED EYES TO SOUND, A&O TO SELF, FOLLOWS COMMANDS, NODDING HEAD Y/N TO MOST QUESTIONS, TRACKS WITH EYES. PT OPENED EYES SPONT DURING SEDATION VACATION. DOUBLE STACKING OF BREATHING DURING SEDATION VACATION. PROPOFOL ON STANDBY FOR SEDATION VACATION. OTHERWISE, PROPOFOL AT 30 MCG/KG/MIN T/O SHIFT. PLANNING TO PLACE PROPOFOL ON STANDBY FOR SBT THIS AM. PT NODDED HEAD YES TO SENSATION INTACT BUE'S. PT NODDED HEAD NO TO N/T BUE'S. PT NODDED HEAD YES TO N/T BLE'S. PT LÓPEZ. WEAK MOVEMENT NOTED. PT DENIED PAIN/DISCOMFORT. NO S/SX OF PAIN/DISCOMFORT NOTED. PT REMAINED IN BILAT WRIST RESTRAINTS TO PROTECT VITAL LINES/CORDS/TUBES AND TO PROTECT FROM SELF-EXTUBATION. LUNGS COARSE, DIMINISHED LOWER LOBES. VENT SETTINGS: AC 22, TV 560, PEEP 5, FIO2 40%. OXY SAT REMIANED >90%. RR 20'S. PLANNING TO COMPLETE SBT THIS AM PER RT SIMI. SX VIA ETT: SMALL AMOUNTS OF THICK BISHOP SECRETIONS. SPUTUM SAMPLE SENT. AFEBRILE. NSR. HR 70'S T0 80'S. CONT TO TITRATE LEVOPHED TO MAINTAIN BP AND MAP. LEVOPHED DRIP CURRENTLY AT 1 MCG/MIN - CONT TO TITRATE TO EFFECT. FAINT PULSES. WARM, PINK SKIN. EDEMA NOTED. HYPOACTIVE BT X4 QUADRANTS. ABD SOFT, NONTENDER, SEVERE DIST. OG IN PLACE. OG TO LIS: BILE COLORED SECRETIONS. NPT D/T INTUBATION. F/C IN PLACE: YELLOW URINE WITH CLOTS AND SEDIMENT. WOUND VAC TO BILAT FT. PT'S FAMILY REMAINED AT BEDSIDE T/O SHIFT. PIV X2. CL LEFT IJ. NS TKO AT 10 ML/HR. WAITING FOR REJOGGER AT THIS TIME. AM LABS COMPLETED. WILL CONT TO MONITOR PT AND WILL PROVIDE BEDSIDE REPORT TO ONCOMING NURSE THIS AM.
--- NOTE | 2018-09-24 05:29 | NUR ---
SEDATION VACATION / SBT PROPOFOL ON STANDBY FOR SEDATION VACATION AND SBT. PT REMAINS CALM, COOPERATIVE, RESPONDS TO VERBAL STIMULI, OPENING EYES SPONT, A&O TO SELF, FOLLOWS COMMANDS, NODDING HEAD Y/N TO MOST QUESTIONS, TRACKING WITH EYES. LUNGS COARSE, DIMINIHSED LOWER LOBES. SBT PER RT SIMI. VENT SETTINGS: PS 7, PEEP 5, FIO2 TITRATED TO 35%. OXY SAT REMAINS >90%. RR 30'S.
[2018-09-24 12:22] LABS: Base Excess Venous -9.6 mmol/L; Bicarbonate Venous 17.3 mmol/L (24.0-30.0); PCO2 Venous 30.5 mmHg (38-42); PO2 Venous 57.8 mmHg (38-42); pH Blood Venous 7.34 (7.34-7.37)
--- NOTE | 2018-09-24 12:29 | NUR ---
PT RESTARTED ON PROPOFOL AT 25MCG AND FENT 25MCG FOR C/O THROAT DISCOMFORT AND FEET PAIN. FAMILY HAS BEEN IN VISITING AND THEY WERE UPDATED TO PT STATUS AND THAT EXTUBATION WELL BE HELD TODAY. PT RETURNED TO [id number] PEEP. WILL FOLLOW PT STATUS AND COMFORT NEEDS.
--- NOTE | 2018-09-24 14:11 | NUR ---
T.F. STARTED VHP AT 25ML/GOAL 40 ML. PT IS CALM AND SEDATE ON PROPOFOL AT 25MCG. URINE OUTPUT REMAINS DARK ZANE. WILL FOLLOW RESIDUALS.
--- NOTE | 2018-09-24 17:49 | NUR ---
IVF NS BOLUS COMPLETED AND URINE SL. LINE O SCRIBE OPERATOR. VSS. PT RESTING AND RR IN MID 20 RANGE ON PROPOFOL. PT FAMILY REMAINS IN VISITING. VENT SETTINGS UNCHANGED. CBG NOTED AND COVERED. VANCO-TROUGH PENDING FOR DOSING. BILAT FEET WOUND CARE ADDRESSED WITH DR PARIS THIS PM AND FEET CARE ORDER WILL FOLLOW TOMORROW. PT ET SECREATIONS ARE LESS THIS PM ARE RR AND SATS NOTED.
[2018-09-24 18:09] LABS: Vancomycin, Trough 26.9 ug/mL (5.0-10.0)
--- NOTE | 2018-09-24 20:46 | NUR ---
CARE ASSUMED REPORT RECEIVED, CARE ASSUMED AT 1900. PT REMAINS INTUBATED AND SEDATED. VITALS STABLE. SEE FLOWSHEETS/ASSESSMENTS. FAMILY AT BEDSIDE.
[2018-09-25 03:59] LABS: BASOPHILS ABSOLUTE AUTO 0.05 K/mm3 (0.00-0.23); BASOPHILS PERCENT AUTO 0 % (0-2); Base Excess Venous -9.8 mmol/L; Bicarbonate Venous 17.1 mmol/L (24.0-30.0); EOSINOPHILS ABSOLUTE AUTO 0.15 K/mm3 (0.00-0.68); EOSINOPHILS PERCENT AUTO 1 % (0-6); Hematocrit 27.2 % (37.0-53.0); Hemoglobin 8.4 g/dL (13.5-17.5); IMMATURE GRAN ABSOLUTE AUTO 0.45 K/mm3 (0.00-0.10); IMMATURE GRAN PERCENT AUTO 3 % (0-1); LYMPHOCYTES PERCENT AUTO 3 % (21-46); MONOCYTES ABSOLUTE AUTO 0.71 K/mm3 (0.16-1.47); MONOCYTES PERCENT AUTO 4 % (4-13); Mean Corpuscular HGB 28.6 pg (26.0-34.0); Mean Corpuscular HGB Conc 30.9 g/dL (31.5-36.5); Mean Platelet Volume 10.2 fL (9.1-12.4); NEUTROPHILS ABSOLUTE AUTO 16.13 K/mm3 (1.96-9.15); NEUTROPHILS PERCENT AUTO 89 % (41-73); PCO2 Venous 31.2 mmHg (38-42); PO2 Venous 68.8 mmHg (38-42); Platelet Count 143 K/mm3 (150-400); RDW Coefficient Variation 15.3 % (11.7-14.2); RDW Standard Deviation 51.9 fL (35.1-46.3); Red Blood Cell Count 2.94 M/mm3 (4.30-5.90); White Blood Cell Count 18.09 K/mm3 (4.00-11.30); pH Blood Venous 7.32 (7.34-7.37)
[2018-09-25 04:00] LABS: Mean Corpuscular Volume 93 fL (80-100)
[2018-09-25 04:17] LABS: Alanine Aminotransfer (ALT/SGP 15 U/L (12-78); Albumin/Globulin Ratio 0.2 (0.8-1.8); Alk Phos 352 U/L (50-136); Anion Gap 9 mmol/L (6-16); Aspartate Aminotrans (AST/SGOT 22 U/L (12-37); Bilirubin, Total 0.6 mg/dL (0.1-1.0); Blood Urea Nitrogen 47 mg/dL (8-24); Bun/Creatinine Ratio 33.1 (12.0-20.0); CO2, Blood 16 mmol/L (21-32); Calcium, Blood 7.6 mg/dL (8.5-10.1); Chloride, Blood 116 mmol/L (98-108); Creatinine, Blood 1.42 mg/dL (0.60-1.20); Globulin, Blood 4.9 g/dL (2.2-4.0); Glomerular Filtration Rate 54 (60-); Glucose, Blood 236 mg/dL (70-99); Magnesium, Blood 2.1 mg/dL (1.6-2.4); Potassium, Blood 5.5 mmol/L (3.5-5.5); Sodium, Blood 141 mmol/L (136-145); Total Protein, Blood 5.9 g/dL (6.4-8.2); Vancomycin, Random 22.4 ug/mL
--- NOTE | 2018-09-25 05:30 | NUR ---
SPONTANEOUS BREATHING TRIAL SPONTANEOUS BREATHING TRIAL PER RESPIRATORY THERAPY. PT LASTED 15 MINUTES AND BECAME TACHYPNEIC. SEE RT NOTE. RE-SEDATED.
--- NOTE | 2018-09-25 06:46 | NUR ---
SUMMARY THROUGHOUT NIGHT, PT HAS REMAINED SEDATED BUT OPENING EYES SPONTANEOUSLY AND WITHDRAWING TO PAIN. HESITANT TO INCREASE SEDATION DUE TO BORDERLINE BLOOD PRESSURES. MEDICATED WITH FENTANYL NEEDED FOR INCREASED RESPIRATIONS. THIS MORNING DURING SEDATION TITRATION, PT CONTINUED TO AROUSE EASILY AND FOLLOW SOME COMMANDS BUT RELUCTANT. NODS HEAD YES/NO BUT MINIMALLY. ABLE TO MOVE HANDS BUT ALSO VERY MINIMALLY. INCREASED SEDATION AFTER SPONTANEOUS BREATHING TRIAL TO PROMOTE REST. PT APPEARS TO HAVE SOME ANXIETY RELATED TO VENTILATOR, WHEN AROUSED BY VERBAL STIMULI RESPIRATIONS INCREASE AND PT COUGHS REPEATEDLY WITH MINIMAL SUCTIONED OUTPUT. PT SOMEWHAT REDIRECTABLE. PT TOLERATING TUBE FEEDINGS, INCREASED PER ORDERS. FAMILY AT BEDSIDE THROUGHOUT NIGHT.
--- NOTE | 2018-09-25 16:28 | NUR ---
Mr. Alarcon wsa ventilated and unale to respond. His grandson was at bedside. Grandson tells me family is hopeful for recovery. Other than that, he said very little. He did tell me that pt is non-protestant, but pt's mom would like the fact that a drug coordinator prayed. Provided this at bedside. Arranged room to make grandson more comfortable. No other needs stated. I will remain available to pt and family.
--- NOTE | 2018-09-25 18:43 | NUR ---
FOOT CARE ENTRY... BEGINING AT APPROX 1345 CALLED WERE MADE TO INQUIRES ABOUT PODIATRY CONSULT AND CARE FOR BLE. PODIATRY HAD NO ONE BRAKE OPERATOR SHEET METAL AND INFORMED DR SANTIAGO AND HE CAME INTO EXAMINE PT FEET AND ESTABLISH ODERS. PT WOUND VACS WERE REMOVED AND EXTENSIVELY DEBRIDES, CLEANED, PHOTOS THEN TAKEN, AND THEN RE-DSGED ON BILAT HEELS SEPERATE DRESSINGS AND NEARLY SO ON R FOOT EXCEPT DSG HELD IN PLACE WITH KERLEX WRAP. L WOUND HAD BRISK CAP REFILL AROUND WOUND. R FOOT HAD ADIQUATE BUT SLUGGISH CAP REFIL AROUND THE WOUND. R LATERAL HEEL RECIEVED ALGINATE IN WOUND BED AND ALL HAD THIN COAT OF SILVIDINE ONINT. APPLIED AND FEET ELEVATED.
--- NOTE | 2018-09-25 19:27 | NUR ---
PT RESTING CALM ON PROPOFOL GTT NOTED AND REMAINS CALM. MODIFIED SED VACATION TODAY PT WAS ABLE TO FOLLOW SIMPLE COMMANDS AND MAKE EYE CONTACT. HEELS REMAIN ELEVATED. I/O DONE. FAMILY HAS BEEN EDUCATED AND INFORMED TO PT BLLE STATUS AND GENERAL CONDITION.
[2018-09-26 04:34] LABS: BASOPHILS ABSOLUTE AUTO 0.06 K/mm3 (0.00-0.23); BASOPHILS PERCENT AUTO 0 % (0-2); EOSINOPHILS PERCENT AUTO 1 % (0-6); Hematocrit 27.2 % (37.0-53.0); Hemoglobin 8.4 g/dL (13.5-17.5); IMMATURE GRAN ABSOLUTE AUTO 0.45 K/mm3 (0.00-0.10); IMMATURE GRAN PERCENT AUTO 2 % (0-1); LYMPHOCYTES ABSOLUTE AUTO 0.68 K/mm3 (0.84-5.20); LYMPHOCYTES PERCENT AUTO 4 % (21-46); MONOCYTES PERCENT AUTO 4 % (4-13); Mean Corpuscular HGB Conc 30.9 g/dL (31.5-36.5); Mean Corpuscular Volume 94 fL (80-100); Mean Platelet Volume 10.2 fL (9.1-12.4); NEUTROPHILS ABSOLUTE AUTO 16.75 K/mm3 (1.96-9.15); NEUTROPHILS PERCENT AUTO 89 % (41-73); Platelet Count 132 K/mm3 (150-400); RDW Coefficient Variation 15.3 % (11.7-14.2); White Blood Cell Count 18.84 K/mm3 (4.00-11.30)
[2018-09-26 04:49] LABS: Anion Gap 7 mmol/L (6-16); Blood Urea Nitrogen 51 mg/dL (8-24); Bun/Creatinine Ratio 40.2 (12.0-20.0); CO2, Blood 17 mmol/L (21-32); Calcium, Blood 7.8 mg/dL (8.5-10.1); Chloride, Blood 116 mmol/L (98-108); Creatinine, Blood 1.27 mg/dL (0.60-1.20); Glomerular Filtration Rate >60 (60-); Glucose, Blood 315 mg/dL (70-99); Magnesium, Blood 2.1 mg/dL (1.6-2.4); Phosphorus, Blood 3.8 mg/dL (2.5-4.9); Potassium, Blood 5.3 mmol/L (3.5-5.5); Sodium, Blood 140 mmol/L (136-145)
--- NOTE | 2018-09-26 06:02 | NUR ---
SUMMARY PT INTUBATED AND SEDATED WITH PROPOFOL. PT WILL OPEN EYE'S TO VOICE. SEDATION VACATION THIS AM AND PT WAS ABLE TO FOLLOW COMMANDS. CALLED DR. JONES THIS AM ABOUT DECREASED URINE OUTPUT, NEW ORDERS FOR LR AT 75ML/HR. ALSO RECEIVED ORDER FOR C-DIFF SAMPLE SINCE PT HAS WATERY DIARRHEA. PT HAD ONE RESIDUAL THAT WAS 290ML, REFED 250ML AND TURNED TF OFF FOR HOUR. RESIDUAL WAS 0 AFTER THAT HOUR SO TF RESUMED. AT 0430 RESIDUAL WAS 140ML. BLOOD SUGARS CONTINUE TO BE HIGH. FAMILY HAS BEEN AT BEDSIDE ALL NIGHT.
[2018-09-26 06:27] LABS: PO2 Arterial 75.9 mmHg (80-100); pH Blood Arterial 7.27 (7.35-7.45)
--- NOTE | 2018-09-26 07:50 | NUR ---
INITIAL ASSESSMENT PATIENT INTUBATED AND SEDATED. PATIENT DOES RESPOND TO VERBAL STIMULI. PATIENT WEAK BUT ABLE TO MOVE ALL EXTREMITIES. PATIENT HAS NO SIGNS OF PAIN OR DISCOMFORT. PATIENT AFEBRILE. PATIENT SATTING 92% AND GREATER ON VENT SETTINGS OF AC 22, PEEP 5, TV 560 AND FIO2 OF 40%. PATIENT IN SR, HR IN THE 80S. BP STABLE. ABDOMEN MODERATELY DISTENDED, SOFT, WITH HYPOACTIVE BS. OG TO TF INFUSING AT GOAL RATE. RECTAL TUBE IN PLACE DRAINING LOOSE, BROWN STOOL. BHATTI DRAINING MINIMAL AMOUNT OF DARK YELLOW URINE. ULCERS TO BILAT FEET- DRESSING IN PLACE- C/D/I. RIGHT FOOT HOT TO TOUCH. SCATTERED BRUISING NOTED T/O. PULSES DOPPLERED TO BILAT FEET. LR INFUSING AT 75 MLS/ HOUR, PROPOFOL INFUSING AT 35 MCG/ KG/ MINUTE. BED LOW, CALL LIGHT IN REACH. FAMILY AT BEDSIDE. WILL CONTINUE TO MONITOR PATIENT FREQUENTLY THROUGHOUT SHIFT.
[2018-09-26 11:05] LABS: Vancomycin, Trough 21.5 ug/mL (5.0-10.0)
--- NOTE | 2018-09-26 12:30 | NUR ---
PATIENT REMAINS INTUBATED AND SEDATED. REMAINS RESPONDING TO VERBAL STIMULI. AFEBRILE. NO SIGNS OF PAIN OR DISCOMFORT. PATIENT REMAINS SATTING WELL ON SAME VENT SETTINGS. LUNGS COARSE THROUGHOUT. PATIENT IN SR, HR 80S TO 90S. BP STABLE. PULSES IN BILAT FEET REMAIN DOPPLERED. PIVOT 1.5 IMMUNE STARTED AT 25 MLS/ HOUR. GOAL RATE OF 30 MLS/ HOUR. RESIDUAL OF ZERO. BHATTI DRAINING MINIMAL AMOUNT OF DARK YELLOW URINE WITH SEDIMENT NOTED. BS OF 330- COVERAGE GIVEN ORDERED. NO OTHER ACUTE CHANGES TO NOTE ON AT THIS TIME. FAMILY AT BEDSIDE. WILL CONTINUE TO MONITOR.
--- NOTE | 2018-09-26 13:56 | NUR ---
DR. JONES INFORMED OF PATIENT'S LOW URINE OUTPUT OF 11 CC SO FAR THIS SHIFT. ORDERS OBTAINED.
--- NOTE | 2018-09-26 16:32 | NUR ---
PATIENT RESTING QUIETLY IN BED. REMAINS RESPONDING TO VERBAL STIMULI. PATIENT AFEBRILE. NO SIGNS OF PAIN OR DISCOMFORT NOTED. PATIENT REMAINS SATTING WELL ON SAME VENT SETTINGS. LUNGS CLEAR THROUGHOUT, DIMINISHED IN LOWER LOBES. PATIENT IN SR, HR IN THE 90S. BP STABLE. RESIDUAL OF 70 MLS OBTAINED FROM OG AND REINSTILLED. TF REMAINS INFUSING AT 25 MLS/ HOUR WITH 30 ML WATER FLUSH Q4H. 19 ML URINE OUT FROM BHATTI CATHETER. SODIUM BICARB INFUSING AT 100 MLS/ HOUR, NS TKO, PROPOFOL REMAINS AT 35 MCG/ KG/ MINUTE. NO OTHER ACUTE CHANGES TO NOTE ON AT THIS TIME. FAMILY REMAINS AT BEDSIDE. WILL CONTINUE TO MONITOR.
--- NOTE | 2018-09-26 17:18 | NUR ---
DR. JONES NOTIFIED THAT PATIENT HAS ONLY HAD AN ADDITIONAL 19 CC OF URINE OUT OF BHATTI. NO ORDERS RECEIVED AT THIS TIME.
--- NOTE | 2018-09-26 17:58 | NUR ---
Initial Visit: Consult received for pt's medical fragility and readmission status. Past medical history of diabetes, hypertension, alcohol abuse, hepatitis C, CAD, CKD, diabetic foot ulcer. Pt is intubated, sedated. , daughter , and graddaughter are bedside. , Kailee is reading a book to him. She states that pt lifted his eyebrows. She is encouraged. She is listing all of the "movement" that he is making: It appears that she is clinging onto any encouragment that comes from the staff. I introduced palliative care. Instructed that our nurses can help with planning and making decisions, can provide a listening ear. She verbalizes understanding. Will remain available if needed. Reviewed
--- NOTE | 2018-09-26 18:49 | NUR ---
SHIFT SUMMARY PATIENT REMAINED INTUBATED AND ON SEDATION THROUGHOUT SHIFT. PATIENT REMAINED RESPONDING TO VERBAL STIMULI AND LOCALIZING MOVEMENTS IN EXTREMITIES. PATIENT REMAINED AFEBRILE. PATIENT DID NOT HAVE ANY SIGNS OF PAIN T/O SHIFT. PATIENT REMAINED SATTING WELL ON AC 22, TV 560, PEEP 5, 40% FIO2. PATIENT REMAINED IN SR, HR 80S TO 90S. BP STABLE. PATIENT HAD 200 ML OF LOOSE, BROWN BM OUT FROM RECTAL TUBE. TF CHANGED FROM VITAL HIGH PROTEIN TO PIVOT 1.5 THIS SHIFT. TF INFUSING AT 25 MLS/ HOUR WITH GOAL RATE OF 30 MLS/ HOUR. 30 ML WATER FLUSH Q4H. RESIDUALS 70 ML AND LESS. BLOOD SUGARS IN THE 300S- COVERAGE GIVEN ORDERED. TEMP PROBE BHATTI DRAINED 48 ML OF DARK YELLOW URINE WITH SEDIMENT NOTED. DR. JONES AWARE OF VERY MINIMAL OUTPUT. SODIUM BICARB STARTED TODAY AND 1 L LR BOLUS GIVEN. NO CHANGE TO SKIN. PULSES REMAIN DOPPLERED IN BILAT FEET. SODIUM BICARB INFUSING AT 100 MLS/ HOUR, NS TKO, PROPOFOL AT 35 MCG/ KG/ MINUTE. BED LOW, CALL LIGHT IN REACH. PATIENT APPEARS COMFORTABLE AT THIS TIME. FAMILY AT BEDSIDE. WILL CONTINUE TO MONITOR PATIENT FREQUENTLY UNTIL REPORT GIVEN TO ONCOMING [employer] SUPERVISOR NURSE SHORTLY.
--- NOTE | 2018-09-26 19:15 | NUR ---
ASSUMED PT CARE PT INTUBATED/SEDATED WITH PROPOFOL AT 35MCG/KG. VENT SETTINGS: AC 22, TV 560, FIO2 40%, PEEP 5; OXYGEN SATURATIONS 95%. SODIUM BICARB INFUSING AT 100MLS/HR. NS TKO. PIVOT 1.5 INFUSING AT 25MLS/HR; TO BE INCREASED TO GOAL OF 30MLS/HR AT 2030. CENTRAL LINE NOTED TO LEFT IJ; DRESSING INTACT. RECTAL TUBE DRAINING LIGHT, BROWN STOOL. TEMP BHATTI IN PLACE; DRAINING TO GRAVITY DARK, ZANE COLORED URINE. DRESSING REMAINS INTACT TO BILATERAL FEET. BLOOD PRESSURE STABLE AT 123/76; NSR WITH HR 95; RR 22; TEMP 98.7. PT DOES NOT APPEAR TO BE IN ANY PAIN. FAMILY AT BEDSIDE READING TO PT.
--- NOTE | 2018-09-27 00:32 | NUR ---
DR. VALDES SPOKE WITH DR. VALDES IN REGARDS TO PT'S ELEVATED BLOOD SUGAR OF 411. NEW ORDERS FOR 5 UNITS REGULAR HUMULIN Q6HRS WITH MED SS WELL FOR CORRECTION. DAY SHIFT HOSPITALIST TO DECIDE IF THEY WANT TO REINSTATE 20 UNITS LANTUS AT HS.
[2018-09-27 03:26] LABS: BASOPHILS ABSOLUTE AUTO 0.04 K/mm3 (0.00-0.23); BASOPHILS PERCENT AUTO 0 % (0-2); EOSINOPHILS ABSOLUTE AUTO 0.18 K/mm3 (0.00-0.68); EOSINOPHILS PERCENT AUTO 1 % (0-6); Hemoglobin 8.2 g/dL (13.5-17.5); IMMATURE GRAN ABSOLUTE AUTO 0.48 K/mm3 (0.00-0.10); IMMATURE GRAN PERCENT AUTO 3 % (0-1); LYMPHOCYTES ABSOLUTE AUTO 0.66 K/mm3 (0.84-5.20); LYMPHOCYTES PERCENT AUTO 5 % (21-46); MONOCYTES ABSOLUTE AUTO 0.61 K/mm3 (0.16-1.47); MONOCYTES PERCENT AUTO 4 % (4-13); Mean Corpuscular HGB 29.1 pg (26.0-34.0); Mean Corpuscular HGB Conc 31.5 g/dL (31.5-36.5); Mean Corpuscular Volume 92 fL (80-100); Mean Platelet Volume 10.1 fL (9.1-12.4); NEUTROPHILS ABSOLUTE AUTO 11.96 K/mm3 (1.96-9.15); NEUTROPHILS PERCENT AUTO 86 % (41-73); Platelet Count 124 K/mm3 (150-400); RDW Coefficient Variation 15.4 % (11.7-14.2); RDW Standard Deviation 51.3 fL (35.1-46.3); Red Blood Cell Count 2.82 M/mm3 (4.30-5.90); White Blood Cell Count 13.93 K/mm3 (4.00-11.30)
[2018-09-27 03:47] LABS: Alanine Aminotransfer (ALT/SGP 15 U/L (12-78); Albumin, Blood 1.1 g/dL (3.4-5.0); Albumin/Globulin Ratio 0.2 (0.8-1.8); Alk Phos 375 U/L (50-136); Anion Gap 7 mmol/L (6-16); Aspartate Aminotrans (AST/SGOT 16 U/L (12-37); Bilirubin, Total 0.6 mg/dL (0.1-1.0); Blood Urea Nitrogen 49 mg/dL (8-24); Bun/Creatinine Ratio 42.2 (12.0-20.0); CO2, Blood 20 mmol/L (21-32); Calcium, Blood 7.6 mg/dL (8.5-10.1); Chloride, Blood 111 mmol/L (98-108); Creatinine, Blood 1.16 mg/dL (0.60-1.20); Globulin, Blood 5.4 g/dL (2.2-4.0); Glomerular Filtration Rate >60 (60-); Glucose, Blood 442 mg/dL (70-99); Phosphorus, Blood 3.2 mg/dL (2.5-4.9); Potassium, Blood 4.9 mmol/L (3.5-5.5); Sodium, Blood 138 mmol/L (136-145); Total Protein, Blood 6.5 g/dL (6.4-8.2)
[2018-09-27 05:28] LABS: PCO2 Arterial 34.2 mmHg (35-45); PO2 Arterial 76.9 mmHg (80-100); pH Blood Arterial 7.39 (7.35-7.45)
--- NOTE | 2018-09-27 05:40 | NUR ---
DR. VALDES UPDATED DR. VALDES REGARDING ELEVATED BLOOD SUGAR OF 455 THIS AM. NEW ORDERS TO INCREASE MEDIUM SS TO HIGH SS, WELL INCREASE STANDARD 5 UNITS Q6HRS TO 8 UNITS REGULAR INSULIN Q6HRS. NO OTHER ORDERS/CHANGES.
--- NOTE | 2018-09-27 05:43 | NUR ---
SBT PT TITRATED OFF PROPOFOL; PT REMAINED CALM AND COOPERATIVE. ABLE TO OPEN EYES AND TRACK. HOWEVER, PT WOULD NOT FOLLOW ANY COMMANDS. WOULD SHAKE HEAD YES/NO TO CERTAIN QUESTIONS, LIKE IF HE KNEW WHERE HE WAS AND IF HE WAS IN PAIN; HOWEVER, PT WOULDN'T COOPERATE WITH ANY OTHER QUESTIONS OR FOLLOW ANY OTHER COMMANDS. VENTILATOR CHANGED TO SPONTANEOUS WITH PRESSURE SUPPORT OF 7/5 WITH FIO2 35%; OXYGEN SATURATIONS MAINTAINED ABOVE 92%. TIDAL VOLUMES REMAINED GREATER THAN 400 T/O ENTIRE SBT. RR 22-28. BP REMAINED STABLE; SBP 124-140. HR REMAINED 90-104. POST SBT PT LEFT ON SPONTANEOUS D/T PT TOLERATING SO WELL. FAMIY AT BEDSIDE READING.
--- NOTE | 2018-09-27 05:49 | NUR ---
END OF SHIFT SUMMARY PT HAS REMAINED INTUBATED AND SEDATED MOST OF NIGHT. VENT SETTINGS AC 22, TV 560, FIO2 35%, PEEP 5 UNTIL SBT; NOW PT REMAINS ON SPONTANEOUS WITH PRESSURE SUPPORT 7/5; FIO2 35%. PT ABLE TO OPEN EYES AND TRACK. AWARE FAMILY IS AT BEDSIDE. HOWEVER, PT WON'T FOLLOW ANY COMMANDS. WILL SHAKE HEAD YES/NO TO CERTAIN QUESTIONS, BUT NOT COOPERATING TO OTHER QUESTIONS ASKED. PIVOT 1.5 CONTINUES AT GOAL OF 30CC/HR. MINIMAL RESIDUALS; HIGH OF 175-REINSTILLED. TEMP BHATTI REMAINS PATENT AND DRAINING TO GRAVITY; DARK, ZANE COLORED URINE WITH SEDIMENT; TOTAL OUTPUT THIS SHIFT 150CC. RECTAL TUBE REMAINS PATENT AND DRAINING BISHOP, LIQUID STOOL TO GRAVITY. DRESSINGS TO BILATERAL FEET CHANGED TWICE THIS SHIFT D/T MODERATE AMOUNTS OF BROWN/YELLOW DRAINAGE. NO ODOR NOTED. PT SHOOK HEAD "YES" TO PAIN; MEDICATED ONCE WITH PRN FENTANYL PER ORDERS. CENTRAL LINE DRESSING REMAINS INTACT; PROPOFOL REMAINS OFF, SODIUM BICARB INFUSING AT 100MLS/HR; NS TKO. FAMILY REMAINS AT BEDSIDE READING TO PT. CALL LIGHT IS WITHIN REACH.
--- NOTE | 2018-09-27 10:34 | NUR ---
PT IS VERY SLOW TO RESPOND TO VERBAL STIMULATION AND QUESTIONS. YET OFF PROPOFOL. FAMILY HAS BEEN IN ROOM. RR UP TO 30-34 AND TV DOWN FROM [address] SHEPHERD REQUEST TO PLACE PT BACK ON AC FOR NOW. WILL FOLLOW.
--- NOTE | 2018-09-27 15:35 | NUR ---
DSG CHANGE OF FEET BILAT. L HEEL CLEANED, SILVEDINE APPLIED, ALGINATE, AND PADDED DSG. ONLY VERY SCANT DRAINAGE NOTED FROM LAST DSG CHANGE. R FOOT WAS CHANGED BY CLEANING SKIN WITH SKINTEGRITY AGAIN, SKIN ALL HAS SL SLUGGISH CAP REFILL BUT IS PRESENT. ARCH OF FOOT AND DORSUM OF FOOT HAVE MILD DRAINAGE W/O ODOR, R LATERAL HEEL HAS MILD AMOUNT OF DRAINAGE AND SOME TUNNELING NOTED ON A SPOT AT LATERAL POSTERIOR PORTION, AND ALL HAD SILVADINE APPLIED AND ALGINATE THEN FOAM PAD APPLIED AND WRAPPED WITH KERLIX. PT TOLERATED WELL BUT IS OFF PROPOFOL AND MAYBE SL ANXIOUS HR IS ELEVATED. WILL FOLLOW.
--- NOTE | 2018-09-27 18:22 | NUR ---
PT CONT TO REST WELL OFF PROPOFOL GTT FOR NOW WITH ONLY HR SL ELEVATED AT 110-115. RR 24-26 BACK ON AC SETTINGS. NO RESIDUAL TODAY. CBG NOTED AND MEDICATED FOR. PT DID RECIEVE LASIX 40 BUT THERE WAS ONLY 140ML UO NOTED THIS SHIFT AND WILL REPORT TO DR SHEPHERD ON HS CALL IN. FAMILY REMAINS AT BED SIDE. PT REMAINS RESTRAINED AND NOT RESISTING. HANDS AND FEET ELEVATED.
--- NOTE | 2018-09-27 19:15 | NUR ---
ASSUMING CARE OF PT AT THIS TIME. PT REPORT RECEIVED AT BEDSIDE WITH OFFGOING NURSE, KENTON HERMAN. PT LAYING IN BED, INTUBATED, AWAKE UPON ENTERING THE ROOM. PT'S FAMILY AT BEDSIDE. VS STABLE - SEE VS FS. PT DOES NOT APPEAR TO BE IN DISTRESS AT THIS TIME. WILL REVIEW PLAN OF CARE.
--- NOTE | 2018-09-27 19:30 | NUR ---
ASSESSMENT PT CALM, COOPERATIVE, RESPONDS TO VERBAL STIMULI, SPONT OPENS EYES, TRACKING VOICE, LOCALIZES PAIN, NOT NODDING HEAD Y/N TO QUESTIONS, NOT FOLLOWING COMMANDS. PT'S FAMILY STATED THAT PT "HAS NOT BEEN FOLLOWING COMMANDS OR ANSWERING QUESTIONS MUCH TODAY". PROPOFOL DRIP CURRENTLY ON STANDBY FOR SEDATION VACATION - WILL TITRATE PROPOFOL DRIP TO EFFECT. [place] SENSATION. NO MOVEMEBT BUE'S. GROSS, WEAK MOVEMENT BLE'S. S/SX OF PAIN/DISCOMFORT NOTED. MEDICATED WITH FENT PER PHYSICIAN'S ORDFER / UTILIZED NONPHARM METHODS. PT IN BILAT WRIST RESTRAINTS TO PROTECT VITAL LINES/CORDS/TUBES AND TO PREVENT FROM SELF-EXTUBATION. LUNGS COARSE, DIMINISHED LOWER LOBES. VENT SETTINGS: AC 22, TV 560, PEEP 5, FIO2 35%. RR 20'S. OXY SAT >90%. SUCTION VIA ETT: SMALL AMOUNTS OF THICK WHITE SECRETIONS. TEMP 100.0 - DECREASED ROOM TEMP, REMOVED BLANKETS. ST WITH OCC PVC'S. HR 110'. BP STABLE - SEE VS FS. FAINT RADIAL PULSES. VERIFIED TIBIAL AND PEDAL PULSES WITH DOPPLER. EDEMA NOTED. WARM, PINK SKIN. HYPOACTIVE BT X4 QUADRANTS. ABD FIRM, NONTENDER (NO FACIAL GRIMACING WITH PALPATION). OG IN PLACE. TF: PIVOT 1.5 AT GOAL RATE 30 ML/HR AND 30 ML FLUSH Q4 HR. RESIDUAL 0. RECTAL TUBE: SMALL AMOUNTS OF BROWN LIQUID SECRETIONS NOTED. F/C: DARK YELLOW URINE WITH SEDIMENT. MINIMAL OUTPUT. LASIX ADMINISTERED. WOUND CARE COMPLETED. CL L IJ. NS TKO AT 10 ML/HR. PT'S FAMILY AT BEDSIDE AND PLANNING TO SPEND NIGHT IN ICU.
--- NOTE | 2018-09-28 | NUR ---
BHATTI CATHETER PER OFFGOING NURSE, KENTON HERMAN - MINIMAL UO FROM F/C THIS AM. PER VIRGIL FUNG - BLADDER SCAN 0. 10 ML OF DARK YELLOW URINE WITH SEDIMENT T/O SHIFT. VIRGIL ARANA FLUSHED F/C WITH 50 ML OF STERILE WATER. NO UO AFTER FLUSH. RESISTANCE DURING FLUSH. BLADDER SCAN >999 ML. D/C PREVIOUS BHATTI CATHETER. PT INCONTIENT AT THIS TIME. NEW HBATTI CATHETER PLACED BY VIRGIL RAMIREZ. NEW F/C PATENT AND DRAINING TO GRAVITY: DARK YELLOW URINE WITH SEDIMENT. NEW UA SENT.
[2018-09-28 00:15] LABS: Bilirubin, Urine Neg (Neg); Blood, Urine 5+ (Neg); Glucose Qualitative, Urine 3+ (Neg); Ketones, Urine Neg (Neg); Leukocyte Esterase, Urine 1+ (Neg); Nitrite, Urine Neg (Neg); Protein, Urine 1+ (Neg); Source, Urine Catheter; Specific Gravity, Urine 1.015 (1.003-1.022); Urobilinogen, Urine NORM (Normal)
[2018-09-28 00:17] LABS: Appearance, Urine Hazy (Clear); Color, Urine Yellow (P-Yellow)
[2018-09-28 00:40] LABS: Amorphous Mod (0-Heavy); Bacteria Rare /hpf; Red Blood Cells, Urine 50-100 /hpf (0-2); Squamous Epithelial Cells Not Seen /hpf (Few); White Blood Cells, Urine 0-2 /hpf (0-5)
[2018-09-28 03:58] LABS: BASOPHILS ABSOLUTE AUTO 0.04 K/mm3 (0.00-0.23); BASOPHILS PERCENT AUTO 0 % (0-2); EOSINOPHILS ABSOLUTE AUTO 0.14 K/mm3 (0.00-0.68); EOSINOPHILS PERCENT AUTO 1 % (0-6); IMMATURE GRAN ABSOLUTE AUTO 0.34 K/mm3 (0.00-0.10); IMMATURE GRAN PERCENT AUTO 3 % (0-1); LYMPHOCYTES ABSOLUTE AUTO 0.62 K/mm3 (0.84-5.20); LYMPHOCYTES PERCENT AUTO 5 % (21-46); MONOCYTES ABSOLUTE AUTO 0.67 K/mm3 (0.16-1.47); MONOCYTES PERCENT AUTO 5 % (4-13); Mean Corpuscular HGB 28.4 pg (26.0-34.0); Mean Corpuscular HGB Conc 30.8 g/dL (31.5-36.5); Mean Corpuscular Volume 92 fL (80-100); Mean Platelet Volume 9.9 fL (9.1-12.4); NEUTROPHILS ABSOLUTE AUTO 12.04 K/mm3 (1.96-9.15); NEUTROPHILS PERCENT AUTO 87 % (41-73); Platelet Count 121 K/mm3 (150-400); RDW Coefficient Variation 15.4 % (11.7-14.2); RDW Standard Deviation 51.9 fL (35.1-46.3); Red Blood Cell Count 2.82 M/mm3 (4.30-5.90); White Blood Cell Count 13.85 K/mm3 (4.00-11.30)
[2018-09-28 04:19] LABS: Albumin, Blood 1.1 g/dL (3.4-5.0); Albumin/Globulin Ratio 0.2 (0.8-1.8); Bilirubin, Total 0.7 mg/dL (0.1-1.0); Bun/Creatinine Ratio 35.5 (12.0-20.0); Calcium, Blood 7.7 mg/dL (8.5-10.1); Creatinine, Blood 1.72 mg/dL (0.60-1.20); Globulin, Blood 5.5 g/dL (2.2-4.0); Magnesium, Blood 2.1 mg/dL (1.6-2.4); Phosphorus, Blood 3.8 mg/dL (2.5-4.9); Potassium, Blood 4.9 mmol/L (3.5-5.5); Total Protein, Blood 6.6 g/dL (6.4-8.2)
--- NOTE | 2018-09-28 04:54 | NUR ---
SHIFT ASSESSMENT NO ACUTE CHANGES NOTED T/O SHIFT. PT CALM, COOPERATIVE, RESOPNDS TO VERBAL STIMULI, SPONT OPENS EYES, TRACKING VOICE, LOCALIZES PAIN, NOD NODDING HEAD Y/N TO QUESTIONS, NOT FOLLOWING COMMANDS. PT APPEARS MORE LETHARGIC THIS PM. CONT TO TITRATE PROPOFOL DRIP TO EFFECT. PROPOFOL DRIP CURRENTLY ON STANDBY FOR SBT. [place] SENSATION. NO MOVEMENT BUE'S. GROSS, WEAK MOVEMENT BLE'S. LESS MOVEMENT NOTED THIS PM. S/SX OF PAIN/DISCOMFORT NOTED AT BEGINNING OF THE SHIFT. MEDICATED WITH FENT / UTILIZED NONPHARM METHODS. NO S/SX OF PAIN/DISCOMFORT NOTED AFTER ADMINISTERING FENT. PT IN BILAT WRIST RESTRAINTS TO PROTECT VITAL LINES/CORDS/TUBES AND TO PREVENT FROM SELF-EXTUBATION. LUNGS OCC COARSE, DIMINISHED LOWER LOBES. OTHERWISE, CLEAR AND DIMINISHED LOWER LOBES. LUNGS CLEARING WITH SUCTION. CURRENT VENT SETTINGS: AC 22, TV 560, PEEP 5, FIO2 25%. WAITING FOR SLY, RT TO COMPLETE SBT. CONT TO TITRATE FIO2 TO MAINTAIN SPO2. OXY SAT REMAINED >90%. RR 20'S TO 30'S. SUCTION VIA ETT: SMALL AMOUNTS OF THICK WHITE SECRETIONS. COMPLETED BED CPT. TMAX 100.0 - DECREASED ROOM TEMP, BLANKETS OFF, AND FAN UTILIZED. CURRENTLY AFEBRILE. SR TO ST WITH OCC PVC'S. HR 80'S TO 110'S. BP STABLE - SEE VS FS. FAINT RADIAL PULSES. VERIFIED TIBIAL AND PEDAL PULSES WITH DOPPLER. EDEMA NOTED. WARM, PINK. HYPOACTIVE BT X4 QUADRANTS. ABD SEVERE DIST, FIRM, NONTENDER (NO FACIAL GRIMACING WITH PALPATION). OG IN PLACE. TF: PIVOT 1.5 @ GOAL RATE 30 ML/HR AND 30 ML FLUSH Q4 HR. RESIDUAL WNL. RECTAL TUBE: BROWN LIQUID STOOL NOTED. F/C: ZANE COLOR URINE WITH SEDIMENT. WOUDN CARE COMPLETED AT BEGINNING OF THE SHIFT - SEE SHIFT ASSESSMENT. CL L IJ. NS TKO AT 10 ML/HR. PT'S FAMILY AT BEDSIDE T/O SHIFT. WILL CONT TO MONITOR PT AND WILL PROVIDE BEDSIDE REPORT TO ONCOMING NURSE THIS AM.
--- NOTE | 2018-09-28 06:24 | NUR ---
SBT PROPOFOL ON STANDBY. VENT SETTINGS CHANGED FOR SBT BY SLY RT - PS 7, PEEP 5, FIO2 25%. VS STABLE - SEE VS FS. PT REMAINS CALM, COOPERATIVE, RESPONDS TO VERBAL STIMULI, SPONT OPENS EYES, TRACKING VOICE, LOCALIZES PAIN, NOT NODDING HEAD Y/N TO QUESTIONS, NOT FOLLOWING COMMANDS. PT FALLS BACK SLEEP WITH DECREASED STIMULI. PT SLEPT T/O SHIFT.
--- NOTE | 2018-09-28 12:21 | NUR ---
REASSESSMENT: PT IS SLIGHTLY MORE RESPONSIVE THAN EARLIER THIS MORNING. WHEN HE HAS BEEN DISTURBED AND MOVED AROUND HE FOLLOWS COMMANDS TO SQUEEZE HANDS, BUT IF HE HAS BEEN RESTING HE IS INCONSISTENT. HE STILL DOES NOT HAVE A NOTICEABLE GAG REFLEX. LUNGS ARE COARSE. AFTER TURNING HIM AND CHANGING HIS LINENS PT TOOK 5-20 MINUTES TO RECOVER HIS OXYGEN SATS AND GET HIS RESPIRATORY RATE BACK DOWN. PT'S MINUTE VENTILATION WENT DOWN DURING THIS TIME WELL. SR, BP STABLE. TOLERATING TUBE FEED STILL. RECTAL TUBE APPEARS TO HAVE BEEN LEAKING AND PT'S BUTTOCKS AROUND IT IS VERY RED AND EXCORIATED. PT CLEANED AND BARRIER CREAM PUT AROUND IT. BHATTI DRAINING YELLOW URINE WITH LOTS OF SEDIMENT. DRESSINGS CHANGED ON BILAT FEET. PT'S FAMILY HAS BEEN AT THE BEDSIDE FOR MOST OF THE MORNING. CONTINUE TO MONITOR.
--- NOTE | 2018-09-28 17:14 | NUR ---
SHIFT SUMMARY: PT HAS SLOWLY WOKEN UP MORE THROUGHOUT THE DAY, BUT REMAINS VERY DROWSY. HE FOLLOWS COMMANDS TO SQUEEZE HIS HANDS, BUT HIS GAG REFLEX IS STILL QUESTIONABLE. LUGNS ARE COARSE AND HE HAS HAD AMDOERATE AMT OF THICK WHITE/BISHOP SECRETIONS THIS AFTERNOON. AR, BP STABLE. BHATTI CL YELLOW NOW, BUT STILL WITH LOTS OF SEDIMENT. RECTAL TUBE CONTINUES TO HAVE LIQUID STOOL. DRESSINGS ON HIS FEET HAVE REMAINED C/D/I SINCE THEY WERE CHANGED. POWERGLIDE WAS PLACED THIS AFTERNOON AND IJ REMOVED WITHOUT COMPLICATION. PT'S FAMILY HAS BEEN IN AND OUT OF THE ROOM THROUGHOUT THE DAY AND HAS BEEN COOPERATIVE WITH CARES.
--- NOTE | 2018-09-28 19:15 | NUR ---
ASSUMING CARE OF PT AT THIS TIME. PT REPORT RECEIVED AT BEDSIDE WITH OFFGOING NURSE, BOWEN HERMAN. PT LAYING IN BED, INTUBATED, AWAKE. PT'S FAMILY AT BEDSIDE. VS STABLE - SEE VS FS. PT DOES NOT APPEAR TO BE IN DISTRESS AT THIS TIME. WILL REVIEW PLAN OF CARE.
--- NOTE | 2018-09-28 19:30 | NUR ---
ASSESSMENT PT CALM, COOPERATIVE, RESPONDS TO VERBAL STIMULI, SPONT OPENS EYES, TRACKS WITH EYES, FOLLOWS COMMANDS (ABLE TO PICTURE ENLARGER UPON REQUEST; UNABLE TO MOVE TOES UPON REQUEST), NODDING HEAD Y/N TO MOST QUESTIONS, OCC SLOW TO RESPOND TO NOD HEAD Y/N TO QUESTIONS. PER REPORT - ATTEMPT TO MINIMIZE SEDATION. PROPOFOL OFF AT THIS TIME - WILL CONT TITITRATE TO EFFECT. PT NODDED HEAD YES TO N/T ALL EXTREMETIES. WEAK MOVEMENT BUE'S. GROSS, WEAK MOVEMENT BLE'S. INCREASED MOVEMENT NOTED THIS PM. PT DENIES PAIN/DISCOMFORT. NO S/SX OF PAIN/DISCOMFORT. PT NODDED HEAD YES TO MEDICATING WITH FENT PRIOR TO WOUND CARE. MEDICATED WITH FENT PRIOR TO WOUND CARE / UTILIZED NONPHARM METHODS. PT IN BILAT WRIST RESTRAINTS TO PROTECT FROM SELF-EXTUBATION AND TO PROTECT VITAL LINES/CORDS/TUBES. VENT SETTINGS: PS 7, PEEP 5, FIO2 30%. OXY SAT >95%. RR 18. LUNGS COARSE, DIMINISHED LOWER LOBES. SUCTION VIA ETT: MOD AMOUNTS OF THICK WHITE SECRETIONS. INCREASED SPUTUM NOTED THIS PM. AFEBRILE. NSR. HR 90'S. BP STABLE - SEE VS FS. FAINT RADIAL PULSES. DOPPLER TIBIAL AND PEDAL PULSES. WARM, PINK SKIN. LESS EDEMA NOTED THIS PM. HYPOACTIVE BT X4 QUADRANTS. ABD SOFT, NONTENDER, MOD DIST. OG IN PLACE. TF: PIVOT 1.5 @ GOAL RATE 40 ML/HR AND 30 ML FLUSH Q4 HR. RESIDUAL 100. RECTAL TUBE IN PLACE: BROWN LIQUID STOOL NOTED. F/C: YELLOW URINE WITH SEDIMENT. POWERGLIDUE JESSICA - SL. WOUND CARE COMPLETED - SEE SHIFT ASSESSMENT. PT'S FAMILY AT BEDSIDE AND PLANNING TO SPEND NIGHT IN ICU.
[2018-09-29 03:21] LABS: Base Excess Venous -3.6 mmol/L; Bicarbonate Venous 21.1 mmol/L (24.0-30.0); PCO2 Venous 44.2 mmHg (38-42); PO2 Venous 36.8 mmHg (38-42); pH Blood Venous 7.32 (7.34-7.37)
[2018-09-29 03:31] LABS: BASOPHILS ABSOLUTE AUTO 0.04 K/mm3 (0.00-0.23); BASOPHILS PERCENT AUTO 0 % (0-2); EOSINOPHILS ABSOLUTE AUTO 0.18 K/mm3 (0.00-0.68); EOSINOPHILS PERCENT AUTO 1 % (0-6); Hematocrit 26.8 % (37.0-53.0); Hemoglobin 8.1 g/dL (13.5-17.5); IMMATURE GRAN ABSOLUTE AUTO 0.17 K/mm3 (0.00-0.10); IMMATURE GRAN PERCENT AUTO 1 % (0-1); LYMPHOCYTES ABSOLUTE AUTO 0.51 K/mm3 (0.84-5.20); LYMPHOCYTES PERCENT AUTO 4 % (21-46); MONOCYTES ABSOLUTE AUTO 0.52 K/mm3 (0.16-1.47); MONOCYTES PERCENT AUTO 4 % (4-13); Mean Corpuscular HGB 28.6 pg (26.0-34.0); Mean Corpuscular HGB Conc 30.2 g/dL (31.5-36.5); Mean Platelet Volume 10.7 fL (9.1-12.4); NEUTROPHILS ABSOLUTE AUTO 12.05 K/mm3 (1.96-9.15); NEUTROPHILS PERCENT AUTO 89 % (41-73); Platelet Count 121 K/mm3 (150-400); RDW Coefficient Variation 15.4 % (11.7-14.2); RDW Standard Deviation 53.1 fL (35.1-46.3); Red Blood Cell Count 2.83 M/mm3 (4.30-5.90); White Blood Cell Count 13.47 K/mm3 (4.00-11.30)
[2018-09-29 03:33] LABS: Mean Corpuscular Volume 95 fL (80-100)
[2018-09-29 03:53] LABS: Albumin, Blood 1.2 g/dL (3.4-5.0); Anion Gap 6 mmol/L (6-16); Blood Urea Nitrogen 59 mg/dL (8-24); Bun/Creatinine Ratio 46.1 (12.0-20.0); CO2, Blood 22 mmol/L (21-32); Calcium, Blood 7.9 mg/dL (8.5-10.1); Chloride, Blood 115 mmol/L (98-108); Creatinine, Blood 1.28 mg/dL (0.60-1.20); Glomerular Filtration Rate >60 (60-); Glucose, Blood 366 mg/dL (70-99); Phosphorus, Blood 3.4 mg/dL (2.5-4.9); Sodium, Blood 143 mmol/L (136-145)
--- NOTE | 2018-09-29 05:02 | NUR ---
SHIFT ASSESSMENT NO ACUTE CHANGES NOTED T/O SHIFT. PT SLEPT T/O SHIFT. PT CALM, QUIET, RESPONDS TO VERBAL STIULI, SPONT OPENS EYES, TRACKS WITH EYES, FOLLOWS COMMANDS (ABLE TO TAXI DRIVER SUPERVISOR UPON REQUEST; UNABLE TO MOVE TOES UPON REQUEST), NODDING HEAD Y/N TO QUESTIONS, OCC SLOW TO RESPOND, NODDING HEAD Y/N TO QUESTIONS. PROPOFOL REMAINED OFF T/O SHIFT. PT NODDED HEAD YES TO N/T ALL EXTREMETIES. WEAK MOVEMENT BUE'S. GROSS, WEAK MOVEMENT BLE'S. INCREASED MOVEMENT NOTED THIS PM. PT DENIED PAIN/DISCOMFORT T/O SHIFT. NO S/SX OF PAIN/DISCOMFORTNOTED T/O SHIFT. FENT ADMINSITERED ONLY PRIOR TO WOUND CARE AT BEGINNING OF THE SHIFT. MINIMIZED SEDATION. PT IN BILAT WRIST RESTRAINTS TO PROTECT FROM SELF-EXTUBATION AND TO PROTECT VITAL LINES/CORDS/TUBES. VENT SETTINGS: PS 7, PEEP 5, FIO2 25%. OXY SAT >90%. RR 12 TO 20'S. LUNGS COARSE, DIMINISHED LOWER LOBES. SUCTION VIA ETT: MOD AMOUNTS OF THICK WHITE SECRETIONS. INCREASED SPUTUM AND ORAL SECRETIONS NOTED. AFEBRILE. NSR TO ST. HR 80'S TO 100'S. BP STABLE - SEE VS FS. FAINT RADIAL PULSES. DOPPLER TIBIAL AND PEDAL PULSES. WARM, PINK SKIN. LESS EDEMA NOTED THIS PM. HYPOACTIVE BT X4 QUADRANTS. ABD SOFT, NONTENDER, MOD DIST. OG IN [place]. TF: PIVOT 1.5 @ GOAL RATE 40 ML/HR AND 30 ML FLUSH Q4 HR. RESIDUAL WNL. RECTAL TUBE IN PLACE: BROWN LIQUID STOOL NOTED. F/C: YELLOW URINE WITH SEDIMENT. POWERGLIDE JESSICA - SL. WOUND CARE COMPLETED AT BEGINNING OF THE SHIFT. PT'S FAMILY REMAINED AT [facility]. WILL CONT TO MONITOR PT AND WILL PROVIDE BEDSIDE REPORT TO ONCOMING NURSE THIS AM.
--- NOTE | 2018-09-29 07:49 | NUR ---
0720-ASSUMED CARE OF PT. PT IS WIDE AWAKE. AFEBRILE. PT FOLLOW SOME FEW SIMPLE COMMANDS BUT VERY SLOW TO RESPOND. PT DOES NOT TRACK. PT HAS RECTAL TUBE AND OG TUBE WITH PIVOT 1.5 @ 40ML/HR AT GOAL RATE. PT'S ANDREA GARAY AT BEDSIDE.
--- NOTE | 2018-09-29 12:37 | NUR ---
1145-PT SEEN BY DR. JONES, UPDATED HIM OF PT'S STATUS. 1213-PT WAS EXTUBATED AT THIS TIME, PLACED ON 2LPM NC. DISCONTINUED RESTRAINTS WELL. PT'S BREATHING IS SHALLOW, PTSTATED THAT HE HAS SOME SHORTNESS OF BREATH, PT ON 2LPM NC WITH O2 SATURATION @ 90%. DR. JONES WAS NOTIFIED NO ORDERS RECEIVED. CONTINUE TO MONITOR.
--- NOTE | 2018-09-29 14:22 | NUR ---
PT WAS GIVEN A WET SPONGE TO SUCK ON. SWALLOWING REFLEX NOTED BUT AFTER THE THIRD ATTEMPT OF SUCKING FROM THE WET SPONGE THAT PT STARTED COUGHING. PT HAS MODERATE COUGH.
--- NOTE | 2018-09-29 18:20 | NUR ---
SHIFT SUMMARY: PT WAS EXTUBATED TODAY @ 1213, PT IS NPO. PT IS ALERT AND ORIENTED X3. FOLLLOWING COMMANDS. PT IS WEAK. PT HAS GARBLED SPEECH BUT TRIES TO COMMUNICATE. PT IS AFEBRILE. PT WAS GIVEN SOME WET SPONGES ON OCCASSION. PT'S FAMILY HAS HELPED WITH PT'S ROM EXERICES.
--- NOTE | 2018-09-30 03:28 | NUR ---
ASSUMING CARE OF PT. REPORT TAKEN FROM YARA HERMAN.
[2018-09-30 04:49] LABS: BASOPHILS ABSOLUTE AUTO 0.07 K/mm3 (0.00-0.23); BASOPHILS PERCENT AUTO 1 % (0-2); EOSINOPHILS ABSOLUTE AUTO 0.26 K/mm3 (0.00-0.68); EOSINOPHILS PERCENT AUTO 2 % (0-6); Hematocrit 26.8 % (37.0-53.0); IMMATURE GRAN ABSOLUTE AUTO 0.18 K/mm3 (0.00-0.10); IMMATURE GRAN PERCENT AUTO 1 % (0-1); LYMPHOCYTES ABSOLUTE AUTO 0.78 K/mm3 (0.84-5.20); LYMPHOCYTES PERCENT AUTO 6 % (21-46); MONOCYTES ABSOLUTE AUTO 0.63 K/mm3 (0.16-1.47); MONOCYTES PERCENT AUTO 5 % (4-13); Mean Corpuscular HGB 29.1 pg (26.0-34.0); Mean Corpuscular HGB Conc 29.9 g/dL (31.5-36.5); Mean Platelet Volume 10.4 fL (9.1-12.4); NEUTROPHILS ABSOLUTE AUTO 11.48 K/mm3 (1.96-9.15); NEUTROPHILS PERCENT AUTO 86 % (41-73); Platelet Count 140 K/mm3 (150-400); Red Blood Cell Count 2.75 M/mm3 (4.30-5.90)
[2018-09-30 04:55] LABS: Mean Corpuscular Volume 98 fL (80-100)
[2018-09-30 05:09] LABS: Anion Gap 5 mmol/L (6-16); Blood Urea Nitrogen 52 mg/dL (8-24); Bun/Creatinine Ratio 53.1 (12.0-20.0); CO2, Blood 22 mmol/L (21-32); Calcium, Blood 8.4 mg/dL (8.5-10.1); Chloride, Blood 120 mmol/L (98-108); Creatinine, Blood 0.98 mg/dL (0.60-1.20); Glomerular Filtration Rate >60 (60-); Glucose, Blood 175 mg/dL (70-99); Magnesium, Blood 2.1 mg/dL (1.6-2.4); Phosphorus, Blood 3.4 mg/dL (2.5-4.9); Sodium, Blood 147 mmol/L (136-145)
--- NOTE | 2018-09-30 06:05 | NUR ---
PT RESTING IN BED. AWAKE AND TRACKS BUT DOES NOT ANSWER QUESTIONS. HAS BEEN ON 2L AND SPO2 IN THE 90'S. RECTAL TUBE PUTTING OUT LIQUID BROWN STOOL. BUTTOCKS IS EXCORIATED. SCROTUM IS EDEMATOUS, USING PILLOW CASE TO SLING AND ELEVATE. DRESSINGS TO FEET ARE C/D/I SINCE DRESSING CHANGE EARLY IN THE SHIFT. FAMILY AT BEDSIDE ALL NIGHT.
--- NOTE | 2018-09-30 13:22 | NUR ---
REASSESSMENT: PT HAS BEEN AWAKE IN BED THIS MORNING. HE RESPONDS SLOWLY AND WEAKLY. PHYSICAL THERAPY CAME AND WORKED WITH HIM. PT WAS ONLY ABLE TO GET TO THE EDGE OF THE BED WITH A LOT OF ASSISTANCE. SPEECH THERAPY SAW PT WELL AND GAVE ORDERS FOR HIM TO REMAIN NPO. DR. JONES GAVE ORDER FOR DOBHOFF, WHICH WAS PLACEDD AT 60CM. WAITING FOR CONFIRMATION TO BE READ WHEN DR. JONES COMES BACK. DRESSINGS ON HIS FEET WERE CHANGED AND THE WOUNDS CLEANED. DR. JONES GAVE ORDERS FOR PT TO TRANSFER TO PCU. FMMELONY IS AT THE BEDSIDE AND IS AWARE.
--- NOTE | 2018-09-30 15:31 | NUR ---
DR. JONES READ XRAY FOR DOBHOFF PLACEMENT AND SAID TUBE IS IN THE STOMACH, BUT STILL NEEDS TO BE ADVANCED ABOUT 11CM. DOBHOFF ADVANCED TO 75CM AND TUBE FEEDING STARTED WITH PREVIOUS FORMULA AND RATE PER DR. JONES.
--- NOTE | 2018-09-30 17:41 | NUR ---
SHIFT SUMMARY: PT HAS BEEN AWAKE FOR MOST OF THE DAY. HE CONTINUES TO BE SLOW TO RESPOND, BUT IS ANSWERING QUESTIONS MORE CONSISTENTLY. LUNGS ARE CLEAR, DIM IN THE BASES. SR, BP STABLE. URINE STILL HAS SOME SEDIMENT IN IT. RECTAL TUBE REMAINS IN PLACE WITH LIQUID STOOL. DRESSINGS ON FEET ARE C/D/I. PT'S AT THE BEDSIDE CURRENTLY. CONTINUING TO MONITOR.
[2018-10-01 05:20] LABS: BASOPHILS ABSOLUTE AUTO 0.04 K/mm3 (0.00-0.23); BASOPHILS PERCENT AUTO 0 % (0-2); EOSINOPHILS ABSOLUTE AUTO 0.21 K/mm3 (0.00-0.68); EOSINOPHILS PERCENT AUTO 2 % (0-6); Hematocrit 26.2 % (37.0-53.0); Hemoglobin 7.6 g/dL (13.5-17.5); IMMATURE GRAN ABSOLUTE AUTO 0.12 K/mm3 (0.00-0.10); IMMATURE GRAN PERCENT AUTO 1 % (0-1); LYMPHOCYTES ABSOLUTE AUTO 0.71 K/mm3 (0.84-5.20); LYMPHOCYTES PERCENT AUTO 6 % (21-46); MONOCYTES ABSOLUTE AUTO 0.62 K/mm3 (0.16-1.47); MONOCYTES PERCENT AUTO 6 % (4-13); Mean Corpuscular HGB 28.1 pg (26.0-34.0); Mean Corpuscular Volume 97 fL (80-100); Mean Platelet Volume 10.1 fL (9.1-12.4); NEUTROPHILS ABSOLUTE AUTO 9.43 K/mm3 (1.96-9.15); NEUTROPHILS PERCENT AUTO 85 % (41-73); Platelet Count 134 K/mm3 (150-400); RDW Coefficient Variation 16.2 % (11.7-14.2); RDW Standard Deviation 56.2 fL (35.1-46.3); White Blood Cell Count 11.13 K/mm3 (4.00-11.30)
[2018-10-01 05:55] LABS: Anion Gap 3 mmol/L (6-16); Blood Urea Nitrogen 42 mg/dL (8-24); Bun/Creatinine Ratio 52.2 (12.0-20.0); CO2, Blood 24 mmol/L (21-32); Calcium, Blood 8.3 mg/dL (8.5-10.1); Chloride, Blood 121 mmol/L (98-108); Glomerular Filtration Rate >60 (60-); Glucose, Blood 236 mg/dL (70-99); Potassium, Blood 4.8 mmol/L (3.5-5.5); Sodium, Blood 148 mmol/L (136-145)
--- NOTE | 2018-10-01 06:11 | NUR ---
SUMMARY PT DID WELL DURING THE NIGHT. CONVERSING MORE WITH STAFF AND BUT STILL SLOW TO RESPOND. HAS FLAT AFFECT WELL. MOVES ALL EXTREMITIES. FENTANYL GIVEN 2X FOR PAIN IN R FOOT. FLEXISEAL HAS BEEN PUTTING OUT LIQUID STOOL. BUTTOCKS IS VERY EXCORIATED. DOBHOFF WITH TUBE FEED RUNNING. PT TOLERATING WELL. AT BEDSIDE ALL NIGHT. NO SIGN OF DISTRESS.
--- NOTE | 2018-10-01 11:32 | NUR ---
REASSESSMENT: PT HAS BEEN IN BED THROUGHOUT THE MORNING. HIS RESPONSES ARE STILL VERY SLOW, BUT HE IS SAYING MORE THAN YESTERDAY. HIS ARMS AND LEGS ARE ALSO A LITTLE STRONGER AND HE IS HELPING WITH TURNS MORE. PT GOT UP TO THE CHAIR WITH THE LIFT AND IS SITTING THERE NOW WITH HIS LEGS ELEVATED. LUNGS ARE CLEAR, DIM IN THE BASES. PT WAS TITRATED OFF OF HIS OXYGEN SO HE IS ON RA NOW. SR, BP STABLE. RECTAL TUBE REMAINS IN PLACE WITH LIQUID STOOL, BHATTI DRAINING APPROPRIATELY. DRESSINGS ON PT'S WOUNDS ON HIS FEET WERE CHANGED THIS MORNING AND PT TOLERATED WELL.
--- NOTE | 2018-10-01 15:56 | NUR ---
TRANSFER: PT TRANSFERRED TO PCU 11 VIA BED WITH RN. PT'S WITH PT AND AWARE OF NEW ROOM NUMBER. ALL BELONGINGS TRANSFERRED WITH PT. PT TOLERATED TRANSFER WELL. REPORT GIVEN TO VIRGIL WALKER.
--- NOTE | 2018-10-01 17:16 | NUR ---
SHIFT SUMMARY PT RECEIVED FROM ICU VIA BED. ALERT AND ORIENTED BUT SLOW TO RESPOND. RECTAL TUBE DRAINING THIN, BROWN LIQUID STOOL. BHATTI DRAINING CLEAR YELLOW URINE. DOBHOFF TO RIGHT NARES, TUBE FEED CONTINUED AT THIS TIME. DRSGS TO BILATERAL FEET CDI. AT BEDSIDE. Q2 HOUR TURNS.
[2018-10-02 04:25] LABS: Hematocrit 27.5 % (37.0-53.0); Mean Corpuscular HGB 28.4 pg (26.0-34.0); Mean Corpuscular HGB Conc 29.1 g/dL (31.5-36.5); Mean Corpuscular Volume 98 fL (80-100); Mean Platelet Volume 10.5 fL (9.1-12.4); Platelet Count 157 K/mm3 (150-400); RDW Coefficient Variation 16.3 % (11.7-14.2); RDW Standard Deviation 57.6 fL (35.1-46.3); Red Blood Cell Count 2.82 M/mm3 (4.30-5.90); White Blood Cell Count 10.39 K/mm3 (4.00-11.30)
[2018-10-02 04:50] LABS: Albumin, Blood 1.3 g/dL (3.4-5.0); Anion Gap 4 mmol/L (6-16); Blood Urea Nitrogen 37 mg/dL (8-24); Bun/Creatinine Ratio 48.9 (12.0-20.0); CO2, Blood 25 mmol/L (21-32); Calcium, Blood 8.3 mg/dL (8.5-10.1); Chloride, Blood 117 mmol/L (98-108); Creatinine, Blood 0.76 mg/dL (0.60-1.20); Glomerular Filtration Rate >60 (60-); Glucose, Blood 259 mg/dL (70-99); Percent Saturation 10.5 % (20.0-50.0); Potassium, Blood 4.8 mmol/L (3.5-5.5); Sodium, Blood 146 mmol/L (136-145)
--- NOTE | 2018-10-02 06:17 | NUR ---
PCU NOC SHIFT SUMMARY PATIENT ORIENTED TO SELF AND FAMILY. PATIENT CONFUSED TO LOCATION AND TIME/DATE. PATIENT REMAINS IN NSR TO SINUS TACH T/O SHIFT IN 90-110 SBP - VSS ON ROOM AIR. L/S DIM TO COARSE. PATIENT HAS EXCORIATED GROIN AREA - CLEANED, SKIN PROTECTION AND Q2 TURNS DONE APPROX EVERY 2 HOURS. RECTAL TUBE AND BHATTI CATH IN PLACE DRAINING WNL TO GRAVITY. NOTED LOW URINE OUTPUT THIS SHIFT WITH SEDIMENT NOTED IN URINE. DOBHOFF IN PLACE RUNNING CONTINUOUS FEED PER ORDERS. PATIENTS BLE ELEVATED AND DRESSING CHANGEDS SHIFT SHIFT PER ORDER AND MEDICATED PER EMAR. AT BEDSIDE T/O SHIFT. WILL CONTINUE TO MONITOR T/O SHIFT.
--- NOTE | 2018-10-02 19:38 | NUR ---
SHIFT SUMMARY PT RESTING IN BED THROUGHOUT THE DAY. VSS. ALERT AND ORIENTED TO SELF, FAMILY, AND PLACE, BUT SLOW TO RESPOND. DENIES PAIN THROUGHOUT THE DAY. DOBHOFF CLOGGED, UNABLE TO DRAW OR FLUSH. OLD DOBHOFF REMOVED, NEW DOBHOFF PLACED. PT TOLERATED WELL. PLACEMENT VERIFIED BY XRAY, OK TO USE PER DR. MALCOLM. TUBE FEED AND WATER FLUSH RESUMED. RECTAL TUBE IN PLACE, DRAINING LIQUID BROWN STOOL, SOME LEAKING NOTED. BOTTOM AND SAMI AREA RED AND EXCORIATED, Q2 TURNS, CALAZIME SKIN BARRIER APPLIED. BHATTI DRAINING SCANT AMOUNT OF DARK YELLOW URINE. REPORT TO ARTIFICIAL CANDY MAKER RN.
[2018-10-03 03:57] LABS: BASOPHILS ABSOLUTE AUTO 0.07 K/mm3 (0.00-0.23); BASOPHILS PERCENT AUTO 1 % (0-2); EOSINOPHILS ABSOLUTE AUTO 0.26 K/mm3 (0.00-0.68); EOSINOPHILS PERCENT AUTO 3 % (0-6); Hematocrit 27.8 % (37.0-53.0); Hemoglobin 8.1 g/dL (13.5-17.5); IMMATURE GRAN ABSOLUTE AUTO 0.13 K/mm3 (0.00-0.10); IMMATURE GRAN PERCENT AUTO 1 % (0-1); LYMPHOCYTES ABSOLUTE AUTO 0.74 K/mm3 (0.84-5.20); LYMPHOCYTES PERCENT AUTO 8 % (21-46); MONOCYTES ABSOLUTE AUTO 0.55 K/mm3 (0.16-1.47); MONOCYTES PERCENT AUTO 6 % (4-13); Mean Corpuscular HGB 28.4 pg (26.0-34.0); Mean Corpuscular HGB Conc 29.1 g/dL (31.5-36.5); Mean Corpuscular Volume 98 fL (80-100); Mean Platelet Volume 10.7 fL (9.1-12.4); NEUTROPHILS ABSOLUTE AUTO 8.12 K/mm3 (1.96-9.15); NEUTROPHILS PERCENT AUTO 82 % (41-73); NRBC ABSOLUTE 0.02 K/mm3 (0.00-0.02); NRBC Auto 0.2 /100 WBC (0.0-0.2); Platelet Count 166 K/mm3 (150-400); RDW Coefficient Variation 16.8 % (11.7-14.2); RDW Standard Deviation 58.9 fL (35.1-46.3); Red Blood Cell Count 2.85 M/mm3 (4.30-5.90); White Blood Cell Count 9.87 K/mm3 (4.00-11.30)
[2018-10-03 04:14] LABS: Albumin, Blood 1.4 g/dL (3.4-5.0); Anion Gap 4 mmol/L (6-16); Blood Urea Nitrogen 31 mg/dL (8-24); Bun/Creatinine Ratio 40.8 (12.0-20.0); CO2, Blood 24 mmol/L (21-32); Calcium, Blood 8.2 mg/dL (8.5-10.1); Chloride, Blood 118 mmol/L (98-108); Creatinine, Blood 0.76 mg/dL (0.60-1.20); Glomerular Filtration Rate >60 (60-); Glucose, Blood 230 mg/dL (70-99); Phosphorus, Blood 3.3 mg/dL (2.5-4.9); Potassium, Blood 4.8 mmol/L (3.5-5.5); Sodium, Blood 146 mmol/L (136-145)
--- NOTE | 2018-10-03 05:40 | NUR ---
PCU NOC SHIFT SUMMARY PATIENT AWAKE AND ALERT TO SELF T/O SHIFT. ORIENTED AT TIMES TO SELF, LOCATION AND FAMILY. PATIENT VERBALIZING NEEDS INTERMITTENTLY T/O SHIFT. RECTAL TUBE REMAINS IN PLACE DRAINING 200 CCS OF LIQUID BROWN STOOL THIS SHIFT. BHATTI CATH IN PLACE DRAINING DARK CLEAR YELLOW URINE AT 900 CC'S. DO[address]OFF IN PLACE WITH CONTINUOUS FEED AND FLUID BOLUSES RUNNING. PATIENT DENIES ANY PAIN T/O SHIFT. PATIENT REMAINS IN SINUS TO SINUS TACH T/O SHIFT IN THE 90-105'S. RESP E/U AT REST ON ROOM AIR - LUNG SOUNDS DIM TO UPPER WHEEZE/COARSE. PATIENT TURNED Q2 FOR SAMI AREA HEALING. PATIENT FOLLOWED BY PODEITRY, SURGICAL AND EFM - IT IS REQUESTED THE PATIENT HAVE R BKA - PATIENT AT THIS TIME HAS NOT CONSENTED, MDS WOULD LIKE TO PERFORM SOONER THAN LATER THIS WEEK. PATIENT HAS SEVERE ESCAR WOUNDS ON THE TOP AND BOTTOMS OF BOTH FEET (SEE PHOTOS). BUTTOCK AND SAMI AREA VERY ESCORIATED - TREATING WITH Q2 TURNS AND BARRIER CREAM. NO ACUTE EVENTS T/O SHIFT. WILL CONTINUE TO MONITOR AND GIVE REPORT TO DAYSHIFT RN.
--- NOTE | 2018-10-03 20:08 | NUR ---
SUMMARY- PT ALERT TO SELF AND FAMILY- FOLLOWS COMMANDS ABLE, ANSWERS QUESTIONS SLOW, QUIET. DEPENDANT IN CARE. TURNED Q2. BHATTI PANENT AND DRAINING. RECTAL TUBE WITH LIQ BROWN, SOME LEAKING AROUND TUBE. BALOON BROUGHT DOWN 1600 AND REPOSITIONED. CLEANSED SAMI EXCORIATION AND APPLIED CALAZYME. CALLED TO NOTIFY DR HAYNES OF LIKELY YEAST, AND PAIN PT HAD WITH SKIN CARE. ORDERS RECEIVED. MEDICATED ONCE FOR PAIN AFTER SKIN CARE AND STATED PAIN RELEIF. SILVIDENE TO R FOOT WOUNDS, ABD AND KERLEX AFTER CLEANING. L HEEL WITH MEPILEX CHANGED AFTER CLEANING. TOLERATING TUBE FEEDS Q 6 SUGARS AND REG INSULIN COVERAGE. AT BEDSIDE MOST OF THE SHIFT. REPORT TO BENJA REAL ESTATE ASSET MANAGER.
--- NOTE | 2018-10-04 04:24 | NUR ---
PROVIDER CONTACTED PT REPORTING FEELING NAUSEATED. DR GRULLON CONTACTED AND ORDERS RECIEVED FOR ZOFRAN Q6. WILL INPUT ORDERS AND ADMINISITER.
[2018-10-04 05:16] LABS: BASOPHILS ABSOLUTE AUTO 0.05 K/mm3 (0.00-0.23); BASOPHILS PERCENT AUTO 1 % (0-2); EOSINOPHILS ABSOLUTE AUTO 0.34 K/mm3 (0.00-0.68); EOSINOPHILS PERCENT AUTO 4 % (0-6); Hematocrit 28.1 % (37.0-53.0); Hemoglobin 8.2 g/dL (13.5-17.5); IMMATURE GRAN PERCENT AUTO 1 % (0-1); LYMPHOCYTES PERCENT AUTO 8 % (21-46); MONOCYTES ABSOLUTE AUTO 0.58 K/mm3 (0.16-1.47); MONOCYTES PERCENT AUTO 6 % (4-13); Mean Corpuscular HGB 28.4 pg (26.0-34.0); Mean Corpuscular HGB Conc 29.2 g/dL (31.5-36.5); Mean Corpuscular Volume 97 fL (80-100); Mean Platelet Volume 10.4 fL (9.1-12.4); NEUTROPHILS ABSOLUTE AUTO 7.44 K/mm3 (1.96-9.15); NEUTROPHILS PERCENT AUTO 81 % (41-73); Platelet Count 164 K/mm3 (150-400); RDW Coefficient Variation 16.7 % (11.7-14.2); RDW Standard Deviation 58.8 fL (35.1-46.3); Red Blood Cell Count 2.89 M/mm3 (4.30-5.90); White Blood Cell Count 9.21 K/mm3 (4.00-11.30)
[2018-10-04 05:37] LABS: Anion Gap 4 mmol/L (6-16); Blood Urea Nitrogen 27 mg/dL (8-24); Bun/Creatinine Ratio 32.9 (12.0-20.0); CO2, Blood 25 mmol/L (21-32); Calcium, Blood 8.4 mg/dL (8.5-10.1); Chloride, Blood 117 mmol/L (98-108); Creatinine, Blood 0.82 mg/dL (0.60-1.20); Glomerular Filtration Rate >60 (60-); Glucose, Blood 140 mg/dL (70-99); Potassium, Blood 4.9 mmol/L (3.5-5.5); Sodium, Blood 146 mmol/L (136-145)
--- NOTE | 2018-10-04 06:45 | NUR ---
SHIFT SUMMARY- PT CURRENTLY ORIENTED TO SELF, FAMILY AND PLACE THROUGHOUT SHIFT- REMAINS DISORIENTED TO TOWN AND YEAR. PT HAS FLAT AFFECT AND IS VERY SLOW TO RESPOND, BUT MOSTLY RESPONDS APPROPRIATELY TO SIMPLE QUESTIONS. PT HAS REMAINED ON BEDREST THROUGHOUT NIGHT AND TURNED Q2. RECTAL TUBE IN PLACE WITH SLIGHT LEAKAGE- TUBE DEFLATED AND REINFLATED WITH REPOSITIONING, LEAKING IMPROVED. BUTTOCKS AND SCROTUM EXCORIATED FROM EXPOSURE TO URINE AND STOOL- NYSTATIN AND BARRIER CREAM APPLIED. DRESSING CHANGE DONE TO FOOT WOUNDS. TUBE FEEDING ON HOLD SINCE MIDNIGHT PER "NPO ORDER" FOR ANTICIPATED PROCEDURE TODAY, DOBHOFF REMAINS IN PLACE AND CLAMPED. PT MEDICATED ONCE FOR NAUSEA THROUGHOUT THE NIGHT AND ONCE FOR PAIN PRIOR TO WOUND DRESSING CHANGES. NO OTHER CHANGES NOTED FROM INITIAL ASSESSMENT. WILL CONTINUE TO MONITOR AND REPORT TO ONCOMING SHIFT RN. BED IN LOW POSITION, CALL LIGHT IN REACH. FAMILY AT BEDSIDE THROUGHOUT NIGHT.
--- NOTE | 2018-10-04 08:34 | NUR ---
pt laying in bed with eyes closed, wakes, but took several times of speaking to him to waking, returned to sleep when left undisturbed, not really able to contribute to assessment, lungs are course in upper roman, dim in mid field and base on right side, no cough noted, resp even and unlabored, is currently on r/a, hrr, tele in place running sr/st, trace edema to b/l le, ppp found with doppler, cap refill <3sec, vs stable, afebrile, iv site is power glide to mireya, site clear and patent, btx4, abd flat soft nontender, voids via herrera, has rectal tube for loose stool, skin has multiple wounds to b/l le, with dressings in place, plan is for surgery for amputation of right foot, osfi area is very excoriated. very slow to move, total care. call light in reach. at bedside. she is aware of pending surgery.
--- NOTE | 2018-10-04 10:25 | NUR ---
PT SLEEPING BUT EASILY ROUSABLE TO VOICE AND TOUCH. FALLS BACK ASLEEP DURING CARE. SAMI CARE PERFORMED. CATHETER HAS BROWN STICKY MATERIAL SURROUNDING THAT IS UNABLE TO BE CLEANED WITH WIPE. WET WASHCLOTH WITH SOAP PLACED AROUND THE URETHRA AND CATHETER. PT SLEEPING WHEN THIS STUDENT NURSE EXITED THE ROOM.
--- NOTE | 2018-10-04 16:39 | NUR ---
pt is doing to surgery at this time via bed. Dr. Gillespie was in earlier to see him as he was reluctant to have procedure, she answered questions and is ready to go at this time.
--- NOTE | 2018-10-04 17:41 | NUR ---
10/04/18 1743 Sadaf Ku PT ENTERED OR WITH BHATTI CATHETER. PT ON SCHEDULED ANTIBIOTICS. NO PAS STOCKINGS USED, OK'D WITH DR. CASPER AND DR. SORENSON
[2018-10-05 05:10] LABS: BASOPHILS ABSOLUTE AUTO 0.04 K/mm3 (0.00-0.23); BASOPHILS PERCENT AUTO 0 % (0-2); EOSINOPHILS ABSOLUTE AUTO 0.31 K/mm3 (0.00-0.68); EOSINOPHILS PERCENT AUTO 3 % (0-6); Hematocrit 25.8 % (37.0-53.0); Hemoglobin 7.4 g/dL (13.5-17.5); IMMATURE GRAN ABSOLUTE AUTO 0.08 K/mm3 (0.00-0.10); IMMATURE GRAN PERCENT AUTO 1 % (0-1); LYMPHOCYTES ABSOLUTE AUTO 0.58 K/mm3 (0.84-5.20); LYMPHOCYTES PERCENT AUTO 6 % (21-46); MONOCYTES ABSOLUTE AUTO 0.77 K/mm3 (0.16-1.47); MONOCYTES PERCENT AUTO 7 % (4-13); Mean Corpuscular HGB 28.2 pg (26.0-34.0); Mean Corpuscular HGB Conc 28.7 g/dL (31.5-36.5); Mean Corpuscular Volume 99 fL (80-100); Mean Platelet Volume 10.3 fL (9.1-12.4); NEUTROPHILS ABSOLUTE AUTO 8.86 K/mm3 (1.96-9.15); NEUTROPHILS PERCENT AUTO 83 % (41-73); Platelet Count 173 K/mm3 (150-400); RDW Coefficient Variation 16.6 % (11.7-14.2); RDW Standard Deviation 59.2 fL (35.1-46.3); Red Blood Cell Count 2.62 M/mm3 (4.30-5.90); White Blood Cell Count 10.64 K/mm3 (4.00-11.30)
--- NOTE | 2018-10-05 05:46 | NUR ---
SHIFT SUMMARY PATIENT ALERT AND ORIENTED X 3 THROUGHOUT SHIFT. HE WAS ABLE TO MAKE NEEDS KNOWN AND HIS ASSISTED STAFF WITH NEEDS T/O SHIFT. PT DENIED ANY COMPLAINTS OF PAIN OR DISCOMFORT UNTIL MIDWAY THROUGH SHIFT, WHEN HIS NERVE BLOCK WORE OFF. PT WAS PROVIDED ORDERED PAIN MEDS AND DOCTOR WAS CONTACTED TO OBTAIN ADDITIONAL BREAKTHROUGH MEDS. THIS WORKED WELL FOR THE PATIENT AND HE DENIED ANY FURTHER COMPLAINTS OF PAIN. PT SLEPT OFF AND ON DURING THE NIGHT. HIS RIGHT FOOT AMPUTATION DRESSING REMAINED C/D/I THROUGHOUT THE SHIFT. LEG REMAINED ELEVATED ON PILLOWS TO ASSIST WITH PAIN AND SWELLING. VITALS WERE STABLE T/O THE SHIFT AND HE TOLERATED TURNS AND REPOSITIONS WELL. HE WILL CONTINUE TO BE MONITORED UNTIL HANDOFF TO DAYSHIFT RN.
[2018-10-05 06:42] LABS: Albumin, Blood 1.4 g/dL (3.4-5.0); Anion Gap 6 mmol/L (6-16); Blood Urea Nitrogen 23 mg/dL (8-24); Bun/Creatinine Ratio 25.4 (12.0-20.0); CO2, Blood 23 mmol/L (21-32); Calcium, Blood 8.1 mg/dL (8.5-10.1); Chloride, Blood 117 mmol/L (98-108); Creatinine, Blood 0.91 mg/dL (0.60-1.20); Glomerular Filtration Rate >60 (60-); Glucose, Blood 119 mg/dL (70-99); Phosphorus, Blood 4.5 mg/dL (2.5-4.9); Potassium, Blood 4.9 mmol/L (3.5-5.5); Sodium, Blood 146 mmol/L (136-145)
--- NOTE | 2018-10-05 08:57 | NUR ---
pt laying in bed with eyes closed, opens eyes when spoke to but returns to sleep pretty quickly. seems groggy. he was repositioned and sofi care done, spoke with Dr. Flores about speech re eval, he said to have her come re eval, then remove dobhoff if able. 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
--- NOTE | 2018-10-05 12:33 | NUR ---
pt complaining of pain. gave 1mg dilaudid for pain control with good relief, more relaxed. his dobhoff was clogged, have been attempting to flush it every half hr, was going to replace, but finally unclogged it, and tube feed is running now after flush. son in room. he is also getting a blood transfusion, this was just started. vs stable, afebrile. has been repositioned several times. call light in reach.
--- NOTE | 2018-10-05 12:48 | NUR ---
BLOOD TRANSFUSION BLOOD TRANSFUTION BEGAN AT 1230. BEFORE TRANSFUSION, BREATH SOUNDS COARSE THROUGHOUT AND PT WITH COUGH. BP 125/71, RR 20, HR 106, SPO2 97% 1L NC TEMP 98.3. INFUSION RATE AT 75 ML/HR FOR FIRST FIFTEEN MINUTES. AFTER FIFTEEN MINUTES OF CONTINUOUS MONITORING BY THIS RN PT VS: BP 126/85, RR 13, FR 102, SPO2 95% ON 1LC NC TEMP 98.9. BREATH SOUNDS COARSE THROUGHOUT AND PT WITH COUGH. INFUSION RATE AT 100 ML/HR AT THIS TIME.
--- NOTE | 2018-10-05 14:30 | NUR ---
pt has been transfered to surgical floor via bed, report was given to recieving nurse. all belongings went with pt.
--- NOTE | 2018-10-05 14:50 | NUR ---
PT BLOOD INFUSING, FAMILY AT BEDSIDE. VS CHARTED. PLACED PT ON 2L O2 PER NC FOR SAT OF 88%. PT OPENS EYES. WILL NOTIFY PRIMARY NURSE.
--- NOTE | 2018-10-05 15:30 | NUR ---
PT ARRIVED TO UNIT AT APROX 1430. BLOOD TRANSFUSION IN PROGRESS. RECTAL TUBE AND BHATTI PATENT, FEEDING TUBE IN PLACE-KANGAROO PUMP INFUSING. PT DENIES IS AWAKE BUT SLOW TO RESPOND.
--- NOTE | 2018-10-06 07:33 | NUR ---
SUMMARY: NO ACUTE CHANGE TONIGHT. VSS, PT A/O, CONTINUES TO BE SLOW TO RESPOND. PT FOLLOWS COMMANDS. CONTINUES ON 1L NC, LUNGS ARE CLEAR AND DIM, PT DENIES SOB. TELE STABLE, NSR. DOBHOFF FEEDINGS ARE CONTINIOUS. ZERO RESIDUAL, PT DENIES NAUSEA. PT MEDICATED FOR PAIN PRN, SEE EMAR. MEPILEX AT L ANKLE CHANGED. PT URINE OUTPUT 100ML THIS AM, PT BLADDER SCAN SHOWED 1230ML. EXISTING BHATTI READJUSTED AND FLUSHED TO ATTEMPT TO DRAIN URINE. UNSUCCESSFUL. KOLBY, PAPER BALING MACHINE OPERATOR REMOVED PT BHATTI AND REINSERTED NEW BHATTI. 1600ML OF URINE DRAINED, WILL MAKE DAY RN AWARE. NO ACUTE SAFETY CONCERNS AT THIS TIME. PT AT BEDSIDE.
--- NOTE | 2018-10-06 07:37 | NUR ---
BLADDER SCAN + NEW BHATTI PLACE BLADDER SCAN THIS MORNING SHOWED OVER 1500cc RESIDUAL. AFTER MULTIPLE ATTEMPTS TO FLUSH BHTATI + REPOSITION WITH MINIMAL URINE OUT, BHATTI WAS DC'D WITH NEW BHATTI PLACED. 1900cc OUT AFTER 30 MINUTES OF NEW BHATTI PLACEMENT. DAY SHIFT RN NOTIFIED. PT NOW RESTING IN BED WITH AT BEDSIDE. CALL LIGHT IN REACH.
[2018-10-06 07:53] LABS: Anion Gap 6 mmol/L (6-16); Blood Urea Nitrogen 30 mg/dL (8-24); CO2, Blood 24 mmol/L (21-32); Calcium, Blood 7.7 mg/dL (8.5-10.1); Chloride, Blood 112 mmol/L (98-108); Glomerular Filtration Rate >60 (60-); Glucose, Blood 313 mg/dL (70-99); Potassium, Blood 4.8 mmol/L (3.5-5.5); Sodium, Blood 142 mmol/L (136-145)
[2018-10-06 07:55] LABS: Hematocrit 28.9 % (37.0-53.0); Hemoglobin 8.3 g/dL (13.5-17.5); Mean Corpuscular HGB 27.9 pg (26.0-34.0); Mean Corpuscular HGB Conc 28.7 g/dL (31.5-36.5); Mean Corpuscular Volume 97 fL (80-100); Mean Platelet Volume 10.5 fL (9.1-12.4); NRBC ABSOLUTE 0.02 K/mm3 (0.00-0.02); NRBC Auto 0.2 /100 WBC (0.0-0.2); Platelet Count 170 K/mm3 (150-400); RDW Coefficient Variation 16.8 % (11.7-14.2); Red Blood Cell Count 2.97 M/mm3 (4.30-5.90); White Blood Cell Count 10.57 K/mm3 (4.00-11.30)
--- NOTE | 2018-10-06 12:03 | NUR ---
CHANGED ALL KANGAROO PUMP TUBING AND BAGS.
--- NOTE | 2018-10-06 14:00 | NUR ---
Clinical Visit: Pt is alert, oriented to self and place. He is reclining in bed. Staff has moved him to a lift room, by request of physical therapy. Pt's , son, and grandson are in the room. They are pleasant. Pt reports that his pain is usually around a 3-4/10. He states this is acceptable. Pt appears to be having difficulty staying focused at the conversation at hand. He is easily distracted. Spoke with nurse. She reports that the patient was alert and oriented this morning, but mentation has now changed. She has reviewed medications and treatments that could be the cause of this. Spoke with pt's . I explained my role here in the hospital: I had met her once before. She asks if he is dying. I respond by saying that because of his illnesses, his life will be shorter. She is satisfied by this answer. I recommended to her to speak to the doctor regarding her concerns, she verbalizes understanding. Provided pt's grandson with a variety of activities. My visit was met with appreciation. Will remain available.
--- NOTE | 2018-10-06 17:41 | NUR ---
SHIFT SUMMARY NO ACUTE CHANGES THIS SHIFT. VSS. PT WEANED OFF OF O2 AND NOW ON RA. PT RECEIVING 1 OXYCODONE FOR PAIN PRN. CONT TUBE FEEDINGS INFUSING PER ORDERS. R BKA STUMP SOCK IS CDI. TURNING Q2 PT TOLERATES. PT HAS BEEN ALERT AND ORIENTED THIS SHIFT WITH THE EXCEPTION OF MILD CONFUSION WHEN TRANSPORTING PT INTO A ROOM WITH LIFT CAPABILITITES--PT NOW ALERT AND ORIENTED. BHATTI INTACT. RECTAL TUBE INTACT. FAMILY PRESENT FOR MOST OF SHIFT. CALL LIGHT WITHIN REACH.
[2018-10-07 05:30] LABS: Hematocrit 27.3 % (37.0-53.0); Hemoglobin 8.1 g/dL (13.5-17.5)
[2018-10-07 05:55] LABS: Anion Gap 6 mmol/L (6-16); Blood Urea Nitrogen 25 mg/dL (8-24); Bun/Creatinine Ratio 24.8 (12.0-20.0); CO2, Blood 24 mmol/L (21-32); Calcium, Blood 7.4 mg/dL (8.5-10.1); Chloride, Blood 112 mmol/L (98-108); Creatinine, Blood 1.01 mg/dL (0.60-1.20); Glomerular Filtration Rate >60 (60-); Glucose, Blood 209 mg/dL (70-99); Potassium, Blood 4.1 mmol/L (3.5-5.5); Sodium, Blood 142 mmol/L (136-145)
--- NOTE | 2018-10-07 07:58 | NUR ---
SUMMARY PT WAS SEEN BY DR ALDEN PRIETO. PLAN FOR PEG TUBE IN AM. PT WITH NO C/O NAUSEA. NO EMESIS. L PAS CALF ON. RECTAL TUBE PATENT AND BHATTI PATENT. CIONTINUING SKIN CARE AND REPOSITIONING.
--- NOTE | 2018-10-07 16:35 | NUR ---
DR LEES IN PLACED STUMP STOCKING TO RLE. PAINFUL FOR PT. MEDICATED PER ORDERS FOR 02/10 PAIN. PT DECLINED REPOSITIONING AT THIS TIME.
--- NOTE | 2018-10-07 17:39 | NUR ---
SUMMARY NO ACUTE CHANGES T/O SHIFT. PT MEDICATED PER ORDERS FOR PAIN TO RLE. ORAL CARE PERFORMED. REPOSITIONED T/O SHIFT. DR LEES IN AND PLACED STUMP SOCK TO RLE. SPOUSE AT BEDSIDE AT THIS TIME. ASSISTED PT TO RECLINER PER REQUEST USING LIFT. TAB ALARM ON PT FOR SAFETY. USES CALL LIGHT.
--- NOTE | 2018-10-07 18:39 | NUR ---
TRANSFERRED BACK TO BED USING LIFT.
[2018-10-08 05:18] LABS: Anion Gap 5 mmol/L (6-16); Blood Urea Nitrogen 20 mg/dL (8-24); Bun/Creatinine Ratio 25.4 (12.0-20.0); CO2, Blood 26 mmol/L (21-32); Calcium, Blood 7.6 mg/dL (8.5-10.1); Chloride, Blood 111 mmol/L (98-108); Creatinine, Blood 0.79 mg/dL (0.60-1.20); Glomerular Filtration Rate >60 (60-); Glucose, Blood 155 mg/dL (70-99); Sodium, Blood 142 mmol/L (136-145)
--- NOTE | 2018-10-08 07:19 | NUR ---
SUMMARY PT PREOP FOR PEG TUBE TODAY. PT WAS PULLING ON TELE THIS AM AND RHEOLOGIST WENT TO CK TELE.FOUND PT HAD PULLED DOBHOFF OUT. MERCURY INTACT. I ADDED MORE FLORA TO NEW 18 GUAGE IV SITE LFA.
--- NOTE | 2018-10-08 07:49 | NUR ---
PT TO SURGERY. PULLED DOBHOFF THIS AM. DID NOT RECEIVE MORNING DOSE OF METOPROLOL. PREOP RN AWARE.
--- NOTE | 2018-10-08 08:25 | NUR ---
10/08/18 0825 Fab Latif History, Chart, Medications and Allergies reviewed before start of procedure.MONITOR INTACT WITH CONTINUOUS PULSE OXIMETRY AND INTERMITTENT BP.3-LEAD EKG REVIEWED WITH PHYSICIAN PRIOR TO START OF PROCEDURE.O2 VIA N/C INTACT THROUGHOUT SEDATION/PROCEDURE. Patient confirms NPO status and agrees with scheduled surgery.See Anesthesia record.
--- NOTE | 2018-10-08 09:45 | NUR ---
BACK TO UNIT S/P PEG TUBE PLACEMENT. VSS. RESTING IN BED.
--- NOTE | 2018-10-08 11:58 | NUR ---
DR MIR IN TO SEE PT DISCUSSED ORDERS TO NOT USE PEG TUBE REGARDING PO MEDS. DR MIR AWARE.
--- NOTE | 2018-10-08 17:40 | NUR ---
SUMMARY PT S/P PEG TUBE PLACEMENT THIS AM. VSS. PT'S 02 SATS DROPPED TO MID-HIGH 80S AFTER SURGERY. PLACED ON 1L NC. 02 SATS NOW HIGH 90S. MEDICATED PER ORDERS FOR PAIN AND NAUSEA. PERFORMED ORAL CARE AND REPOSITIONED T/O SHIFT. RECTAL TUBE DRAINING LIGHT BROWN STOOL. BHATTI CATH DRAINING YELLOW URINE W/SMALL AMT SEDIMENT. SPOUSE AT BEDSIDE.
--- NOTE | 2018-10-08 19:30 | NUR ---
RECEIVED HAND OFF FROM DAY NURSE USING SBAR DURING BEDSIDE REPORT. ROOM, POC, ANS CALL RUTLEDGE REITERATED, VOICES UNDERSTANDING. ALL QUESTIONS ANSWERED AT THIS TIME. SHIFT ASSESSMENT IN PROGRESS. SAFETY MEASURES IN PLACE. WILL CONTINUE TO MONITOR.
--- NOTE | 2018-10-08 23:50 | NUR ---
PT C/O PAIN 10/ TO LLE, PRN FENTANYL GIVEN PER MD ORDERS. RECTAL TUBE CHANGED OUT WHEN FOUND TO BE LEAKING AND FULL OF GAS, TOLERATED WELL. PERICARE PROVIDED AND PT REPOSITIONED AFTER LINENS CHANGED. PLACED FOR COMFORT. DENIES FURTHER NEEDS AT THIS TIME. SAFETY MEASURES IN PLACE. WILL CONTINUE TO MONITOR.
[2018-10-09 04:27] LABS: BASOPHILS ABSOLUTE AUTO 0.04 K/mm3 (0.00-0.23); BASOPHILS PERCENT AUTO 1 % (0-2); EOSINOPHILS ABSOLUTE AUTO 0.25 K/mm3 (0.00-0.68); EOSINOPHILS PERCENT AUTO 5 % (0-6); Hematocrit 26.1 % (37.0-53.0); Hemoglobin 7.7 g/dL (13.5-17.5); IMMATURE GRAN ABSOLUTE AUTO 0.09 K/mm3 (0.00-0.10); IMMATURE GRAN PERCENT AUTO 2 % (0-1); LYMPHOCYTES ABSOLUTE AUTO 0.56 K/mm3 (0.84-5.20); LYMPHOCYTES PERCENT AUTO 11 % (21-46); MONOCYTES ABSOLUTE AUTO 0.45 K/mm3 (0.16-1.47); MONOCYTES PERCENT AUTO 9 % (4-13); Mean Corpuscular HGB 27.9 pg (26.0-34.0); Mean Corpuscular HGB Conc 29.5 g/dL (31.5-36.5); Mean Corpuscular Volume 95 fL (80-100); NEUTROPHILS ABSOLUTE AUTO 3.85 K/mm3 (1.96-9.15); NEUTROPHILS PERCENT AUTO 73 % (41-73); Platelet Count 142 K/mm3 (150-400); RDW Standard Deviation 54.9 fL (35.1-46.3); Red Blood Cell Count 2.76 M/mm3 (4.30-5.90); White Blood Cell Count 5.24 K/mm3 (4.00-11.30)
[2018-10-09 04:47] LABS: Alanine Aminotransfer (ALT/SGP 18 U/L (12-78); Albumin, Blood 1.2 g/dL (3.4-5.0); Albumin/Globulin Ratio 0.2 (0.8-1.8); Alk Phos 205 U/L (50-136); Anion Gap 3 mmol/L (6-16); Aspartate Aminotrans (AST/SGOT 23 U/L (12-37); Bilirubin, Total 0.6 mg/dL (0.1-1.0); Blood Urea Nitrogen 15 mg/dL (8-24); Bun/Creatinine Ratio 18.5 (12.0-20.0); CO2, Blood 28 mmol/L (21-32); Calcium, Blood 7.4 mg/dL (8.5-10.1); Chloride, Blood 113 mmol/L (98-108); Creatinine, Blood 0.81 mg/dL (0.60-1.20); Glomerular Filtration Rate >60 (60-); Glucose, Blood 127 mg/dL (70-99); Magnesium, Blood 1.5 mg/dL (1.6-2.4); Potassium, Blood 4.1 mmol/L (3.5-5.5); Sodium, Blood 144 mmol/L (136-145); Total Protein, Blood 6.2 g/dL (6.4-8.2)
--- NOTE | 2018-10-09 06:05 | NUR ---
LYING IN SEMI FOWLERS WITH EYES CLOSED. REPOSITIONED FOR COMFORT Q2 HRS. MEDICATED FOR PAIN X4 THIS SHIFT. DENIES FURTHER NEEDS AT THIS TIME. SAFETY MEASURES IN PLACE. WILL GIVE HAND OFF TO ONCOMING SHIFT USING SBAR,
[2018-10-09 11:59] LABS: Percent Saturation 13.9 % (20.0-50.0)
--- NOTE | 2018-10-09 18:42 | NUR ---
herrera clogged, flushed with 60 ml water. following flush herrera emptied 700 ml within 20 minutes, clear yellow urine draining
--- NOTE | 2018-10-09 18:45 | NUR ---
SHIFT SUMMARY POD5 R BKA, STUMP SHRINK SOCK ON, CDI, ELEVATED. POD1 EGD W/PLACEMENT PEG TUBE, DR JONATHAN HENRY'D TODAY AND ORDERED TUBE FEEDINGS TO BEGIN; RAN CONTINUOUS TUBE FEEDINGS. DIETARY ADDED NEW ORDERS FOR BOLUS, BEGAN AT 1600 TODAY, MODERATELY DISTENDED AND FIRM, 60 MLS RESIDUAL. BHATTI PATENT & DRAINING LT ZANE URINE, 700 MLS OUT. RECTAL TUBE IN PLACE, DK STOOL. RA @ 94%. HOB 45 DEGREES. DRESSINGS CHANGED TODAY. PAIN MANAGED WITH 25 MCGS Q2. UP TO CHAIR WITH LIFT FOR APPROX 1 HR. WCTM UNTIL REPORT GIVEN TO ONCOMING NOC RN.
--- NOTE | 2018-10-10 05:32 | NUR ---
AM LABS DRAWN FROM POWERGLIDE, THEN DRESSING CHANGED. 0600 MEDS PER MD ORDER AND PRN PAIN MED GIVEN PER PT REQUEST. SAFETY MEASURES IN PLACE. WILL CONTINUE TO MONITOR.
[2018-10-10 06:29] LABS: BASOPHILS ABSOLUTE AUTO 0.03 K/mm3 (0.00-0.23); BASOPHILS PERCENT AUTO 1 % (0-2); EOSINOPHILS ABSOLUTE AUTO 0.29 K/mm3 (0.00-0.68); EOSINOPHILS PERCENT AUTO 6 % (0-6); Hematocrit 27.8 % (37.0-53.0); IMMATURE GRAN ABSOLUTE AUTO 0.07 K/mm3 (0.00-0.10); IMMATURE GRAN PERCENT AUTO 1 % (0-1); LYMPHOCYTES ABSOLUTE AUTO 0.52 K/mm3 (0.84-5.20); LYMPHOCYTES PERCENT AUTO 10 % (21-46); MONOCYTES ABSOLUTE AUTO 0.48 K/mm3 (0.16-1.47); MONOCYTES PERCENT AUTO 9 % (4-13); Mean Corpuscular HGB 27.9 pg (26.0-34.0); Mean Corpuscular HGB Conc 28.8 g/dL (31.5-36.5); Mean Corpuscular Volume 97 fL (80-100); NEUTROPHILS ABSOLUTE AUTO 3.91 K/mm3 (1.96-9.15); NEUTROPHILS PERCENT AUTO 74 % (41-73); RDW Coefficient Variation 15.8 % (11.7-14.2); RDW Standard Deviation 55.9 fL (35.1-46.3); Red Blood Cell Count 2.87 M/mm3 (4.30-5.90)
[2018-10-10 06:32] LABS: Mean Platelet Volume 10.7 fL (9.1-12.4); Platelet Count 137 K/mm3 (150-400)
[2018-10-10 06:42] LABS: Alanine Aminotransfer (ALT/SGP 21 U/L (12-78); Albumin, Blood 1.2 g/dL (3.4-5.0); Albumin/Globulin Ratio 0.2 (0.8-1.8); Alk Phos 229 U/L (50-136); Anion Gap 4 mmol/L (6-16); Aspartate Aminotrans (AST/SGOT 24 U/L (12-37); Bilirubin, Total 0.4 mg/dL (0.1-1.0); Blood Urea Nitrogen 11 mg/dL (8-24); Bun/Creatinine Ratio 15.2 (12.0-20.0); CO2, Blood 27 mmol/L (21-32); Calcium, Blood 7.4 mg/dL (8.5-10.1); Chloride, Blood 113 mmol/L (98-108); Creatinine, Blood 0.73 mg/dL (0.60-1.20); Glomerular Filtration Rate >60 (60-); Glucose, Blood 147 mg/dL (70-99); Magnesium, Blood 1.9 mg/dL (1.6-2.4); Potassium, Blood 3.7 mmol/L (3.5-5.5); Sodium, Blood 144 mmol/L (136-145); Total Protein, Blood 6.2 g/dL (6.4-8.2)
--- NOTE | 2018-10-10 07:42 | NUR ---
SHIFT SUMMARY PT RESTED INFREQUENTLY T/O NIGHT. AAOX4. DISCOMFORT CONTROLLED WITH 25mcg FENTANYL Q2-4 T/O NIGHT. MILD NAUSEA CONTROLLED WITH X1 ZOFRAN, NO EMESIS. NEW PEG TUBE RESIDUAL OF GREATER THAN 40cc LAST NIGHT, HELD PM FEEDING R/T PT FEELING "SICK AND FULL." TURN Q2H, PT REFUSED MOST TURNS THROUGH NIGHT, FLOATED ON PILLOWS. DRESSING TO LEFT HEEL CHANGED + DRESSING TO COCCYX C/D/I. NEW ATTENDS X2 THIS SHIFT. BHATTI SECURE AND FLUSHED WITH 10cc STERILE NS X3 THIS SHIFT TO CONTINUE FLOW THROUGH BHATTI. DAY SHIFT RN INFORMED OF OUTPUT + ENCOURAGED TO MONITOR CLOSELY. TELEMETRY IN PLACE, NSR IN 70s TO 80s T/O NIGHT. PT NEEDS ENCOURAGEMENT TO DEEP BREATHE, COUGH, REPOSITION. AT BEDSIDE T/O NIGHT. CALL LIGHT IN REACH + PT USES FOR ASSISTANCE.
--- NOTE | 2018-10-10 15:32 | NUR ---
SHIFT SUMMARY PT A&OX4, VSS, TELE NS @ 85. POD6 R BKA, STUMP SOCK CDI, ELEVATED ON PILLOWS. POD2 EGD PEG TUBE PLACEMENT, TIFFANIE BOLUS 355 ML, AND FLUSH 425 MLS, DENIES N&V, CBG Q6. PAIN MANAGED WITH 25 MCG FENT Q2-4. UP TO CHAIR VIA LIFT. HEEL DRESSING CHANGED, SILVADENE APPLIED. COCCYX DRESSING CHANGED TWICE. PELVIC, SCROTUM (ELEVATED ON PILLOW CASE), AND BOTTOM EXCORIATED, NYSTATIN CREAM & POWDER APPLIED RECTAL TUBE IN PLACE, BAG REPLACED, 800 MLS. BHATTI FLUSHED X4 W/ 30 MLS, 450 MLS OUT. IV SL, SCHEDULED ABX. AT BEDSIDE.
--- NOTE | 2018-10-10 19:25 | NUR ---
1925: DR. CASTILLO ROUNDS ON PT AND "RELEASES" PEG TUBE SO THAT IT IS ABLE TO TWIST IN HOPES OF HELPING TO RELIEVE SOME OF PT'S ABD DISTENTION. PT TOLERATED WELL AND RATES ABD PAIN AND DISTENTION 2/10 AT REST. PLAN TO F/U WITH ABD XRAY IN AM. PT PEG TUBE DRESSING CHANGED AND ABD BINDER REAPPLIED. BHATTI CATHETER FLUSHED WITH 100ML SALINE AND PATENCY RE-ESTABLISHED; STAT LOCK IN PLACE RIGHT THIGH. RECTAL TUBE (NEW INSERTION ON 10/08/18) PATENT LIGHT BROWN LIQUID STOOL INTO NEW BAG THAT WAS APPLIED TODAY. CALL LIGHT PLACED IN REACH.
--- NOTE | 2018-10-11 00:42 | NUR ---
0042: PT REFUSING CBG AND INSULIN AFTER COMMERCIAL LOAN CLOSER AND RN MULTIPLE ATTEMPTS. PT VERBALIZES UNDERSTANDING OF RISK FOR HYPOGLYCEMIA WITH TUBE FEEDING HOLD AND STILL REFUSES. IV ZOSYN INFUSION STARTED.
[2018-10-11 07:32] LABS: BASOPHILS ABSOLUTE AUTO 0.04 K/mm3 (0.00-0.23); BASOPHILS PERCENT AUTO 1 % (0-2); EOSINOPHILS ABSOLUTE AUTO 0.35 K/mm3 (0.00-0.68); EOSINOPHILS PERCENT AUTO 5 % (0-6); Hemoglobin 8.9 g/dL (13.5-17.5); IMMATURE GRAN ABSOLUTE AUTO 0.11 K/mm3 (0.00-0.10); IMMATURE GRAN PERCENT AUTO 2 % (0-1); LYMPHOCYTES ABSOLUTE AUTO 0.59 K/mm3 (0.84-5.20); LYMPHOCYTES PERCENT AUTO 8 % (21-46); MONOCYTES ABSOLUTE AUTO 0.53 K/mm3 (0.16-1.47); MONOCYTES PERCENT AUTO 8 % (4-13); Mean Corpuscular HGB 27.4 pg (26.0-34.0); Mean Corpuscular HGB Conc 28.7 g/dL (31.5-36.5); Mean Corpuscular Volume 95 fL (80-100); Mean Platelet Volume 10.4 fL (9.1-12.4); NEUTROPHILS ABSOLUTE AUTO 5.43 K/mm3 (1.96-9.15); NEUTROPHILS PERCENT AUTO 77 % (41-73); Platelet Count 171 K/mm3 (150-400); Red Blood Cell Count 3.25 M/mm3 (4.30-5.90); White Blood Cell Count 7.05 K/mm3 (4.00-11.30)
--- NOTE | 2018-10-11 07:42 | NUR ---
OLESYA: POD 7 RIGHT BKA, POD 4 PEG TUBE INSERTION ON HOSPITALIST SERVICE WITH DR. CASTILLO CONSULTING. VSS, AFEBRILE ON ROOM AIR. SEVERE ABD DISTENTION APPEARS SOFT, TENDER. DR. CASTILLO RELEASES PEG TUBE EARLY IN SHIFT AND ORDERED ABD XRAY THIS AM THAT WAS COMPLETED AND IS PENDING RESULTS. NO RESIDUALS WHEN CHECKED X4 THIS SHIFT; TOLERATED FLUSHES WELL BUT REFUSED JEVITY TUBE FEEDING. CBG REMAINS STABLE WHEN CHECKED Q6 HOURS. GROIN/BUTTOCK WOUNDS CLEANSED WELL AND POWDERS APPLIED; PT REPOSITIONED FOR COMFORT AND FLOATED ON MULTIPLE PILLOW. PT PAIN WELL CONTROLLED AFTER PHYSICIAN ROUNDING AND MEDICATED ONCE WITH IV FENTANYL. BHATTI FLUSHED X3 THIS SHIFT TO MAINTAIN PATENCY AND RECTAL TUBE REMAINS PATENT WITH SMALL AMOUNT OF LIQUID STOOL. PT REMAINS A&O AND USES CALL LIGHT APPROPRIATELY.
[2018-10-11 07:50] LABS: Alanine Aminotransfer (ALT/SGP 22 U/L (12-78); Albumin, Blood 1.4 g/dL (3.4-5.0); Albumin/Globulin Ratio 0.3 (0.8-1.8); Alk Phos 238 U/L (50-136); Anion Gap 5 mmol/L (6-16); Aspartate Aminotrans (AST/SGOT 27 U/L (12-37); Bilirubin, Total 0.6 mg/dL (0.1-1.0); Blood Urea Nitrogen 10 mg/dL (8-24); Bun/Creatinine Ratio 12.2 (12.0-20.0); CO2, Blood 28 mmol/L (21-32); Calcium, Blood 7.7 mg/dL (8.5-10.1); Chloride, Blood 113 mmol/L (98-108); Creatinine, Blood 0.82 mg/dL (0.60-1.20); Globulin, Blood 5.4 g/dL (2.2-4.0); Glomerular Filtration Rate >60 (60-); Glucose, Blood 153 mg/dL (70-99); Magnesium, Blood 1.9 mg/dL (1.6-2.4); Potassium, Blood 4.5 mmol/L (3.5-5.5); Sodium, Blood 146 mmol/L (136-145); Total Protein, Blood 6.8 g/dL (6.4-8.2)
--- NOTE | 2018-10-11 10:18 | NUR ---
therapy in to see pt.
--- NOTE | 2018-10-11 11:18 | NUR ---
ADMINISTERED CONTRAST PER PEG TUBE PER ORDERS PT DECLINED BEING REPOSITIONED. DECLINED ORAL CARE. FLUSHED BHATTI CATH TO FACILITATE DRAINAGE. PT NOW RESTING W/EYES CLOSED, CALL LIGHT IN REACH.
--- NOTE | 2018-10-11 13:50 | NUR ---
dr yeh in to see pt. changed dressing
--- NOTE | 2018-10-11 14:28 | NUR ---
ADMINISTERED SECOND CUP CONTRAST AT 1400 PER INSTRUCTION.
--- NOTE | 2018-10-11 15:18 | NUR ---
ORAL CONTRAST WHEN WENT TO ADMINISTER 1500 DOSE OF CONTRAST, FOUND PT TO HAVE 40 ML RESIDUAL FROM 1400 DOSE. DID NOT ADMINISTER [address] DEPT AND LM TO CALL REGARDING PT.
--- NOTE | 2018-10-11 16:45 | NUR ---
PT TO CT
--- NOTE | 2018-10-11 17:30 | NUR ---
CALLED DR MIR REGARDING STARTING FEEDS TELEPHONE ORDER TO NOT START TUBE FEEDS UNTIL RESULTS OF CT ARE BACK.
--- NOTE | 2018-10-11 17:43 | NUR ---
SUMMARY PT VERY AGITATED AND ANGRY WHEN CAME ON SHIFT AND T/O MORNING. BEGAN TO SETTLE DOWN MIDDAY AND ALLOWED STAFF TO REPOSITION. DECLINED FEEDS, STATING DIDN'T FEEL WELL. CT OF ABDOMEN ORDERED AND COMPLETED THIS AFTERNOON. AWAITING ORDERS TO RESUME FEEDINGS. MEDICATED PT PER ORDERS T/O SHIFT FOR 810 LOWER ABD PAIN. FLUSHED BHATTI CATH 3 TIMES DURING SHIFT. DRAINING YELLOW URINE W/SEDIMENT. RECTAL TUBE DRAINING BROWN LIQUID STOOL. GROIN AND BUTTOCKS CONTINUE TO BE RED AND EXCORIATED. MEPILEX DRESSING TO LEFT HEEL. DR CASPER IN THIS SHIFT AND CHANGED DRESSING TO BKA. ALLOWED ORAL CARE THIS EVENING. CALL LIGHT IN REACH AND BED ALARM ON.
--- NOTE | 2018-10-11 19:03 | NUR ---
RECVD REPORT FROM PREVIOUS SHIFT RN DANELLE, PT SLEEPING IN BED, BED IN LOWEST POSITION, CALL LIGHT WITHIN REACH, BED RAILS UP X 3
--- NOTE | 2018-10-11 22:11 | NUR ---
pt refused evening bolus feed, he states he "feels full". 25 ml residual, flushed 200 ml water bolus
--- NOTE | 2018-10-12 00:27 | NUR ---
pt agreed to restarting continuous jevity feed via kangaroo pump. feed restarted at 25 ml/hr per orders
--- NOTE | 2018-10-12 02:16 | NUR ---
PT REFUSED BOLUS FEED OF JEVITY DURING PREVIOUS SHIFT. ENCOURAGED PT TO REINTRODUCE CONTINUOUS FEED PER KANGAROO PUMP PER ORDERS, ASSESS BT AND ABDOMINAL DISTENTION. DISCUSSED WITH PT THE IMPORTANCE OF MAINTAINING DIET INTAKE. PT REFUSED TO START CONTINUOUS FEED APPROX 1999, BUT AGREED TO RESTART FEED APPROX 0000
--- NOTE | 2018-10-12 06:01 | NUR ---
shift summary: vss, no acute changes. pt tolerated continuous feed of jevity at 35 ml/hr by 0600, slightly nauseous, no vomiting, medicated for nausea x 1 per mar with some improvement. herrera catheter required flushing x 1 this shift to remain patent and drain yellow urine with sediment, removed 600 ml urine from herrera. pt repositioned q2, floated l heel and elevated r leg on pillows. left heel mepilex changed x 1 with silvadene cream applied per mar. pt's rectal tube leaking mucousy liquid stool up on start of shift assessment. applied 10 ml to seal ballon with improved capture, decreased fecal leakage around flexiseal. pt a/0 x 4 at start of shift, continued to be alert and answer appropriately until approximatly 0500 whereupon he became confused as to what the nurses were doing to him, stating this RN was "crazy" while turning, clearing pump, increasing feed rate, emptying herrera, etc. Reoriented pt to condition. changed mepilex to sacrum, applied nystatin powder and barrier cream to sofi area. elevated scrotum. PEG tube remained patent. 35 ml/hr continuous feed with 200 ml water flushes q4.
--- NOTE | 2018-10-12 06:30 | NUR ---
flushed herrera catheter with 40 ml water. herrera drained yellow urine following flush
[2018-10-12 08:09] LABS: BASOPHILS ABSOLUTE AUTO 0.06 K/mm3 (0.00-0.23); BASOPHILS PERCENT AUTO 1 % (0-2); EOSINOPHILS ABSOLUTE AUTO 0.47 K/mm3 (0.00-0.68); EOSINOPHILS PERCENT AUTO 6 % (0-6); Hematocrit 31.7 % (37.0-53.0); Hemoglobin 9.2 g/dL (13.5-17.5); IMMATURE GRAN ABSOLUTE AUTO 0.17 K/mm3 (0.00-0.10); IMMATURE GRAN PERCENT AUTO 2 % (0-1); LYMPHOCYTES ABSOLUTE AUTO 0.52 K/mm3 (0.84-5.20); LYMPHOCYTES PERCENT AUTO 7 % (21-46); MONOCYTES ABSOLUTE AUTO 0.47 K/mm3 (0.16-1.47); MONOCYTES PERCENT AUTO 6 % (4-13); Mean Corpuscular HGB 26.8 pg (26.0-34.0); Mean Platelet Volume 10.2 fL (9.1-12.4); NEUTROPHILS ABSOLUTE AUTO 6.29 K/mm3 (1.96-9.15); NEUTROPHILS PERCENT AUTO 79 % (41-73); Platelet Count 185 K/mm3 (150-400); RDW Coefficient Variation 15.9 % (11.7-14.2); RDW Standard Deviation 53.8 fL (35.1-46.3); Red Blood Cell Count 3.43 M/mm3 (4.30-5.90); White Blood Cell Count 7.98 K/mm3 (4.00-11.30)
[2018-10-12 08:18] LABS: Mean Corpuscular Volume 92 fL (80-100)
[2018-10-12 08:30] LABS: Alanine Aminotransfer (ALT/SGP 22 U/L (12-78); Albumin, Blood 1.3 g/dL (3.4-5.0); Albumin/Globulin Ratio 0.2 (0.8-1.8); Alk Phos 226 U/L (50-136); Anion Gap 5 mmol/L (6-16); Aspartate Aminotrans (AST/SGOT 26 U/L (12-37); Bilirubin, Total 0.4 mg/dL (0.1-1.0); Blood Urea Nitrogen 8 mg/dL (8-24); Bun/Creatinine Ratio 10.8 (12.0-20.0); CO2, Blood 24 mmol/L (21-32); Calcium, Blood 7.4 mg/dL (8.5-10.1); Chloride, Blood 113 mmol/L (98-108); Creatinine, Blood 0.74 mg/dL (0.60-1.20); Globulin, Blood 5.3 g/dL (2.2-4.0); Glomerular Filtration Rate >60 (60-); Glucose, Blood 173 mg/dL (70-99); Magnesium, Blood 1.7 mg/dL (1.6-2.4); Potassium, Blood 3.9 mmol/L (3.5-5.5); Sodium, Blood 142 mmol/L (136-145); Total Protein, Blood 6.6 g/dL (6.4-8.2)
--- NOTE | 2018-10-12 10:55 | NUR ---
Clinical Visit: Spoke to OT. Pt is very weak, she is concerned about depression. Speech therapy has just worked with the patient and she reports that he is doing much better with swallow function. Discussed goals for the patient: She is hoping that he will eventually be able to eat and that the tube feedings will stop. This is a long range goal. Pt is alert, oriented, pleasant. He does seem more receptive to my visit today than in previous visits. He makes appropriate eye contact, is interacting better than I expected. I ask if he wants to talk about his feelings surrounding his new life, he declines and states, "not yet." Welcomed him to talk about things that are bothering him when he is ready. He nods. I encourage some conversation by asking about his family, he is somewhat receptive to this. He does admit to being depressed, but also does not want to discuss this. I did talk about food and the social and pleasure aspect of eating. I expressed that not eating is more difficult than we all realize since our culture is very centered around meal times. He is listening and nodding. comes in for her assessment. We discuss his blue feelings. She askes if he is sleeping. Plan is made to add a medication to support sleep and feelings of depression. The hope is that if he gets a good night's rest, he may feel better. After Dr. Dempsey leaves, I ask if there is anything that I could bring him to occupy his mind and distract him a little. He denies needs. He does not want crosswords or books. He does not enjoy TV and he does not listen to music as he does not like it. Spiritual Care consult placed. I do think this patient would benefit from regular visits. Palliative care to remain available.
--- NOTE | 2018-10-12 11:28 | NUR ---
Spiritual care visit attempted. Upon receiving a request from patient's RN, I entered patient's room. Patient denied having spiritual beliefs and stated that he has no need for spiritual care. Patient said that his and family are his inspiration for staying in the fight. I will remain available to patient and family.
--- NOTE | 2018-10-12 11:48 | NUR ---
PT'S CALLLED TO REPORT HAD BEEN ADMITTED TO MEDICAL FLOOR FOR CP. INFORMED PT.
--- NOTE | 2018-10-12 14:56 | NUR ---
therapy in to see pt. pt sitting up in chair. medicated per orders for 5/10 abd pain.
--- NOTE | 2018-10-12 16:51 | NUR ---
turned over care to benigno matthews
--- NOTE | 2018-10-12 17:05 | NUR ---
USED LIFT TO GET PT BACK INTO BED REPORT FROM DANELLE HERMAN
--- NOTE | 2018-10-12 17:30 | NUR ---
RECTAL TUBE DEFLATED, PULLED BACK 1IN THEN RE-INFLATED, PT TOLERATED WELL.
--- NOTE | 2018-10-12 18:00 | NUR ---
pt req pain meds 25 mcg fent given per req meds given as sched
--- NOTE | 2018-10-12 20:55 | NUR ---
FENTANYL 25MCG PRN RECIEVED FOR PT C/O ABDO, R.LEG AND L.FOOT PAIN. WILL MONITOR FOR EFFECT.
--- NOTE | 2018-10-12 23:44 | NUR ---
RESISDUAL CHECKED AND WAS 130 MLS SO WAS REINSTILLED BUT RATE NOT CHANGED AT THIS TIME. PT ABDO CONT'S FIRM AND DISTENDED BUT NO S/S ASPIRATION AND DENIES NAUSEA. TUBE FEED REMAINS AT 45 ML/HR.
--- NOTE | 2018-10-13 05:59 | NUR ---
SUMMARY: A/OX4, PLEASANT AND COOPERATIVE W/CARE BUT IS FLAT AFFECTED AND WITHDRAWN. FENTANYL 25 MCG IV RECIEVED X1 FOR TOLERABLE CONTROL OF ABDO, L.FOOT AND R.STUMP PAIN. PEG TUBE DX C/D/I W/TUBE FEED INCREASED TO 55 ML/HR THIS AM, GOAL IS 65 ML/HR. ABDO CONT'S FIRM AND DISTENDED W/HYPOACTIVE BT'S X4 QUADS AND PT DENIES NAUSEA. RECTAL TUBE IS PATENT/DRAINING LIQ BROWN STOOL. IT OCCASIONALLY LEAKS AND PT HAS GROSSLY EXCORIATED BUTTOCKS/SMAI AREA W/ BRIGHT RED YEASTY RASH, NYSTATIN CREAM AND POWDER APPLIED. DX TO L.HEEL WOUND CHANGED W/SILVADEEN CREAM APPLIED RX'D. DX TO R.STUMP WAS CHANGED YESTERDAY AND REMAINS C/D/I W/STUMP SOCK IN PLACE. TURN SCHEDULE MAINTAINED W/L.HEEL AND STUMP ELEVATED. NO ACUTE CHANGES, VSS/AFEBRILE. WILL MONITOR/REPORT TO DAY RN. VIRGIL
--- NOTE | 2018-10-13 05:59 | NUR ---
RESIDUAL WAS 0 THIS MORNING SO TUBE FEED RATE INCREASED TO 55 ML/HR.
[2018-10-13 06:26] LABS: BASOPHILS ABSOLUTE AUTO 0.04 K/mm3 (0.00-0.23); BASOPHILS PERCENT AUTO 1 % (0-2); EOSINOPHILS ABSOLUTE AUTO 0.49 K/mm3 (0.00-0.68); EOSINOPHILS PERCENT AUTO 6 % (0-6); Hematocrit 31.2 % (37.0-53.0); IMMATURE GRAN PERCENT AUTO 2 % (0-1); LYMPHOCYTES ABSOLUTE AUTO 0.68 K/mm3 (0.84-5.20); LYMPHOCYTES PERCENT AUTO 8 % (21-46); MONOCYTES ABSOLUTE AUTO 0.72 K/mm3 (0.16-1.47); MONOCYTES PERCENT AUTO 8 % (4-13); Mean Corpuscular HGB 27.3 pg (26.0-34.0); Mean Corpuscular HGB Conc 28.8 g/dL (31.5-36.5); Mean Platelet Volume 10.1 fL (9.1-12.4); NEUTROPHILS ABSOLUTE AUTO 6.61 K/mm3 (1.96-9.15); NEUTROPHILS PERCENT AUTO 76 % (41-73); Platelet Count 199 K/mm3 (150-400); RDW Standard Deviation 55.2 fL (35.1-46.3); White Blood Cell Count 8.74 K/mm3 (4.00-11.30)
[2018-10-13 06:27] LABS: Mean Corpuscular Volume 95 fL (80-100)
[2018-10-13 06:41] LABS: Alanine Aminotransfer (ALT/SGP 20 U/L (12-78); Albumin, Blood 1.4 g/dL (3.4-5.0); Albumin/Globulin Ratio 0.3 (0.8-1.8); Alk Phos 207 U/L (50-136); Anion Gap 5 mmol/L (6-16); Aspartate Aminotrans (AST/SGOT 22 U/L (12-37); Bilirubin, Total 0.6 mg/dL (0.1-1.0); Blood Urea Nitrogen 8 mg/dL (8-24); Bun/Creatinine Ratio 10.8 (12.0-20.0); CO2, Blood 24 mmol/L (21-32); Calcium, Blood 7.5 mg/dL (8.5-10.1); Chloride, Blood 114 mmol/L (98-108); Creatinine, Blood 0.74 mg/dL (0.60-1.20); Globulin, Blood 5.3 g/dL (2.2-4.0); Glomerular Filtration Rate >60 (60-); Glucose, Blood 208 mg/dL (70-99); Potassium, Blood 3.7 mmol/L (3.5-5.5); Sodium, Blood 143 mmol/L (136-145); Total Protein, Blood 6.7 g/dL (6.4-8.2)
--- NOTE | 2018-10-13 15:39 | NUR ---
1145 DC'D BHATTI AND RECTAL TUBE
--- NOTE | 2018-10-13 15:56 | NUR ---
1230 RESIDUAL TUBE FEEDING RESIDUAL 250 ML. PATIENT FEELING BLOATED, TUBE FEEDING RESIDUAL DISCARDED
--- NOTE | 2018-10-13 15:57 | NUR ---
1330 RESIDUAL 55 FROM TUBE FEED. TUBE FEEDING WAS HELD AT 1230 DUE TO HIGH RESIDUAL. TUBE FEEDING RESTARTED AT THIS TIME
--- NOTE | 2018-10-13 18:19 | NUR ---
SUMMARY PATIENT HAS HAD 1 SMEAR OF STOOL SINCE RECTAL TUBE REMOVED, VOIDED X2 AFTER BHATTI REMOVED. ONE EPISODE OF TUBE FEEDING RESIDUAL BEING GREATER THAN 250 ML. PATIENT FLAT AFFECT, DOES NOT INITIATE CONVERSATION OR MAKE EYE CONTACT, REQUESTS ROOM LIGHTS OFF AND THAT CURTAINS BE CLOSED. PATIENT DOES PARTICIPATE WITH REPOSITIONING WITH ENCOURAGEMENT,
--- NOTE | 2018-10-13 18:30 | NUR ---
MEPILEX DRESSING IN PLACE TO COCCYX AND LEFT HEEL. PATIENTS HEEL HAS BEEN FLOATED ON PILLOW THE ENTIRE SHIFT
--- NOTE | 2018-10-14 05:45 | NUR ---
PT REFUSING MORNING LABS AND ATTEMPTING TO PULL AT LINES. LINES SECURED WITH COBAN. PT REQUESTING TO SLEEP AT THIS TIME.
--- NOTE | 2018-10-14 07:40 | NUR ---
SHIFT SUMMARY: PT HAS SHOWN CONFUSION T/O NIGHT. UNCOOPERATIVE WITH CARE AT TIMES; REFUSING MORNING LABS, BG CHECKS, MEDS AND RESIDUAL CHECKS. DENIES PAIN T/O SHIFT. NO N/V. CONTINUOUS FEED INFUSING AT 60 ML/HR PER ORDER. RESIDUAL CHECKS <250 ML. PT UNABLE TO VOID. STRAIGHT CATH AT APPROX 0430 FOR 600 OUTPUT. 2 EPISODES LIQ STOOL. TURNED Q2 WHEN ALLOWED.
[2018-10-14 08:59] LABS: BASOPHILS ABSOLUTE AUTO 0.05 K/mm3 (0.00-0.23); BASOPHILS PERCENT AUTO 1 % (0-2); EOSINOPHILS ABSOLUTE AUTO 0.36 K/mm3 (0.00-0.68); EOSINOPHILS PERCENT AUTO 5 % (0-6); Hematocrit 29.4 % (37.0-53.0); Hemoglobin 8.5 g/dL (13.5-17.5); IMMATURE GRAN ABSOLUTE AUTO 0.11 K/mm3 (0.00-0.10); IMMATURE GRAN PERCENT AUTO 2 % (0-1); LYMPHOCYTES ABSOLUTE AUTO 0.59 K/mm3 (0.84-5.20); LYMPHOCYTES PERCENT AUTO 8 % (21-46); MONOCYTES ABSOLUTE AUTO 0.61 K/mm3 (0.16-1.47); MONOCYTES PERCENT AUTO 9 % (4-13); Mean Corpuscular HGB 27.1 pg (26.0-34.0); Mean Corpuscular HGB Conc 28.9 g/dL (31.5-36.5); Mean Corpuscular Volume 94 fL (80-100); Mean Platelet Volume 10.4 fL (9.1-12.4); NEUTROPHILS ABSOLUTE AUTO 5.43 K/mm3 (1.96-9.15); NEUTROPHILS PERCENT AUTO 76 % (41-73); Platelet Count 173 K/mm3 (150-400); RDW Coefficient Variation 16.1 % (11.7-14.2); RDW Standard Deviation 54.4 fL (35.1-46.3); Red Blood Cell Count 3.14 M/mm3 (4.30-5.90); White Blood Cell Count 7.15 K/mm3 (4.00-11.30)
[2018-10-14 09:08] LABS: Alanine Aminotransfer (ALT/SGP 17 U/L (12-78); Albumin, Blood 1.3 g/dL (3.4-5.0); Albumin/Globulin Ratio 0.2 (0.8-1.8); Alk Phos 183 U/L (50-136); Anion Gap 5 mmol/L (6-16); Aspartate Aminotrans (AST/SGOT 20 U/L (12-37); Bilirubin, Total 0.4 mg/dL (0.1-1.0); Blood Urea Nitrogen 7 mg/dL (8-24); Bun/Creatinine Ratio 9.3 (12.0-20.0); CO2, Blood 25 mmol/L (21-32); Calcium, Blood 7.4 mg/dL (8.5-10.1); Chloride, Blood 114 mmol/L (98-108); Creatinine, Blood 0.75 mg/dL (0.60-1.20); Globulin, Blood 5.2 g/dL (2.2-4.0); Glomerular Filtration Rate >60 (60-); Glucose, Blood 253 mg/dL (70-99); Potassium, Blood 3.8 mmol/L (3.5-5.5); Sodium, Blood 144 mmol/L (136-145); Total Protein, Blood 6.5 g/dL (6.4-8.2)
--- NOTE | 2018-10-14 14:23 | NUR ---
URINARY RETENTION PT BLADDER SCANNED AT APROX 1200-SHOWED 648ML IN BLADDER. STRAIGHT CATH PER PROTOCOL BY WILDA WOOTEN FOR A TOTAL OF 250 URINE OUT. URINE CLOUDY WITH LARGE PARTICULATE PRESENT IN CATHETER THAT SEEMED TO BE BLOCKING FURTHER DRAINAGE. IRRIGATED WITH 10ML NS WITH NO RETURN OF URINE BY PRIMARY RN . CATHETER REMOVED. DR MIR NOTIFIED-TELEPHONE ORDER FOR CBI WITH BHATTI PLACEMENT. AT 1330 BHATTI PLACED WITH IMMEDIATE RETURN OF CLOUDY URINE 75ML, CBI STARTED. CLEAR FLUID DRAINING INTO BHATTI BAG BUT DOES NOT APPEAR TO HAVE ANY URINE DRAINING. BLADDER SCANED AGAIN AT 1400 FOR A TOTAL OF [address] MIR, WILL CONTINUE TO MONITOR FOR THE NEXT 6 HOURS.
--- NOTE | 2018-10-14 18:36 | NUR ---
SHIFT SUMMARY PEG TUBE INFUSING CONTINOUS FEED. BAG CHANGED. BLADDER SCAN AT NOON 600+ URINE, STRAIGHT CATH DONE 250ML OUT, SEDIMENT PRESENT, CONTINOUS BLADDER IRRIGATION STARTED BY PRIMARY RN AND CYBER INSTRUCTOR. SEE PRIMARY RN NOTE. PT HAS BEEN RECEPTIVE TO CARE AND COOPERATIVE DURING SHIFT. REDNESS AND EXCORIATION PRESENT ON SACRAL AREA AND GROIN, NYSTATIN APPLIED.
--- NOTE | 2018-10-15 07:52 | NUR ---
SHIFT SUMMARY: PT APPEARS VERY TIRED T/O SHIFT. RESTING COMFORTABLY AND COOPERATIVE. DENIES PAIN AND ANY N/V. CONTINUOUS FEED INFUSING. GIVEN SCHED ABX. EXPIRATORY WHEEZING HEARD UPON AUSCULTATION. CONTINUOUS IRRIGATION IN PLACE. COVERED WITH INSULIN FOR HIGH BG'S.
--- NOTE | 2018-10-15 14:42 | NUR ---
PT C/O BEING THIRSTY, WANTS A DRINK OF WATER. EXPLAINED TO PATIENT THAT HE IS STILL NPO STATUS PENDING RE-EVAL WITH SPEECH THERAPY. OFFERED SWABS.
--- NOTE | 2018-10-15 17:37 | NUR ---
SHIFT SUMMARY PT FEED INFUSING CONTINOUS. PT C/O OF PAIN AT APPROX 5 MEDICATED WITH 25MCG FENTANYL. REDNESS ON SACRAL AREA AND GROIN CLEANED AND MEDICATED WITH NYSTATIN. PT COOPERATIVE WITH CARE DURING SHIFT.
--- NOTE | 2018-10-16 04:16 | NUR ---
SHIFT SUMMARY: NO ACUTE CHANGES THIS SHIFT. PT VERY FLAT AND WITHDRAWN. COOPERATIVE WITH CARE. STATES PAIN IS TOLERABLE T/O SHIFT. DENIES N/V. ABD MODERATLY DISTENDED WITH ACTIVE BT. HAVING LIQUID STOOL. ATTENDS CHANGE PRN. SKIN AROUND SAMI AREA APPEARS TO BE IMPROVING WITH SCHED SKIN CARE. PT RECEIVING CONTINUOUS FEEDS. CONTINUOUS BLADDER IRRIGATION IN PLACE. OFFERED ORAL SWABS T/O SHIFT. VS WNL.
[2018-10-16 07:01] LABS: BASOPHILS ABSOLUTE AUTO 0.06 K/mm3 (0.00-0.23); BASOPHILS PERCENT AUTO 1 % (0-2); EOSINOPHILS ABSOLUTE AUTO 0.39 K/mm3 (0.00-0.68); EOSINOPHILS PERCENT AUTO 5 % (0-6); Hematocrit 30.1 % (37.0-53.0); Hemoglobin 8.5 g/dL (13.5-17.5); IMMATURE GRAN ABSOLUTE AUTO 0.16 K/mm3 (0.00-0.10); IMMATURE GRAN PERCENT AUTO 2 % (0-1); LYMPHOCYTES ABSOLUTE AUTO 0.74 K/mm3 (0.84-5.20); LYMPHOCYTES PERCENT AUTO 9 % (21-46); MONOCYTES ABSOLUTE AUTO 0.71 K/mm3 (0.16-1.47); MONOCYTES PERCENT AUTO 8 % (4-13); Mean Corpuscular HGB 26.2 pg (26.0-34.0); Mean Corpuscular HGB Conc 28.2 g/dL (31.5-36.5); Mean Corpuscular Volume 93 fL (80-100); Mean Platelet Volume 10.4 fL (9.1-12.4); NEUTROPHILS ABSOLUTE AUTO 6.46 K/mm3 (1.96-9.15); NEUTROPHILS PERCENT AUTO 76 % (41-73); Platelet Count 191 K/mm3 (150-400); RDW Coefficient Variation 16.1 % (11.7-14.2); RDW Standard Deviation 54.8 fL (35.1-46.3); Red Blood Cell Count 3.25 M/mm3 (4.30-5.90); White Blood Cell Count 8.52 K/mm3 (4.00-11.30)
[2018-10-16 07:19] LABS: Albumin, Blood 1.3 g/dL (3.4-5.0); Anion Gap 5 mmol/L (6-16); Blood Urea Nitrogen 10 mg/dL (8-24); Bun/Creatinine Ratio 12.2 (12.0-20.0); CO2, Blood 26 mmol/L (21-32); Calcium, Blood 7.5 mg/dL (8.5-10.1); Chloride, Blood 113 mmol/L (98-108); Creatinine, Blood 0.82 mg/dL (0.60-1.20); Glomerular Filtration Rate >60 (60-); Glucose, Blood 243 mg/dL (70-99); Phosphorus, Blood 2.1 mg/dL (2.5-4.9); Potassium, Blood 3.8 mmol/L (3.5-5.5); Sodium, Blood 144 mmol/L (136-145)
--- NOTE | 2018-10-16 08:18 | NUR ---
PT SLEEPING WAKES TO VERBAL STIMULI PT WAKES BREIFLY THEN FALLS BACK TO SLEEP MEDS GIVEN PEG TUBE RESIDUAL 110 ML MEDS GIVEN
--- NOTE | 2018-10-16 10:18 | NUR ---
PHYSICAL THERAPY BY TO SEE PT AT BEDSIDE ASKED IF HE WILL BE EVAL FOR SPEECH TO BE ALLOWED TO EAT WILL NOTIFY THEM THAT SHE WOULD LIKE MEET WITH THEM
--- NOTE | 2018-10-16 12:20 | NUR ---
MEDS GIVEN SCHED PT BACK FROM BARIUM SWALLOW AWAITING RESULTS PT ALSO GIVEN MOUTH CARE WITH SX PT HAS LESS THEN 10 ML RESIDUAL FOR PEG TUBE EARLIER TOOK PT OFF THREE WAY BLADDER IRRIGATION PER DR DOYLE STILL FLOWING BUT DOES HAVE SOME SEDIMENT
--- NOTE | 2018-10-16 13:55 | NUR ---
pt req meds for h/a tylenol given per peg tube st by stated pt did not pass the barium swallow silent asp
--- NOTE | 2018-10-16 14:45 | NUR ---
PT WORKING WITH OT
--- NOTE | 2018-10-16 15:18 | NUR ---
PT BY TO SEE PT PT YELLING AT HIS INFO GIVEN TO HER RE THE TEST SHE ALSO STATED THAT HE HAS A TEST OUT PT FROM DR FOX FOR PFT CALLED SCHED DEPT AND CAN PROCEDURE
--- NOTE | 2018-10-16 18:00 | NUR ---
pt sleeping earlier meds given and oral care provided and biotine spray given for dry mouth
[2018-10-17 05:41] LABS: Albumin, Blood 1.3 g/dL (3.4-5.0); Anion Gap 3 mmol/L (6-16); Blood Urea Nitrogen 12 mg/dL (8-24); CO2, Blood 27 mmol/L (21-32); Calcium, Blood 7.5 mg/dL (8.5-10.1); Chloride, Blood 114 mmol/L (98-108); Glomerular Filtration Rate >60 (60-); Glucose, Blood 265 mg/dL (70-99); Phosphorus, Blood 2.7 mg/dL (2.5-4.9); Potassium, Blood 4.5 mmol/L (3.5-5.5); Sodium, Blood 144 mmol/L (136-145)
--- NOTE | 2018-10-17 05:50 | NUR ---
SHIFT SUMMARY NO ACUTE CHANGES THIS SHIFT. PT WAS COOPERATIVE WITH CARE, WITHDRAWN AND FLAT AFFECT. V/S REMAINED WNL, 02 SATS REMAINED >90% ON RA. PT DENIED PAIN THROUGHOUT SHIFT, REPORTED NAUSEA, RESOLVED WITH TEMPORARY HOLDING OF TUBE FEEDS AND MEDICATION WITH ZOFRAN PER EMAR, FEEDINGS RESUMED WITHOUT FURTHER COMPLAINTS. MAXIMUM RESIDUAL VOLUME <30 ML. ABD MODERATELY DISTENDED WITH HYPOACTIVE BOWEL TONES. ENCOURAGED FREQUENT REPOSITIONING, PT ACCEPTED MINIMAL REPOSITIONING.
--- NOTE | 2018-10-17 08:10 | NUR ---
PT SLEEPING LS AUDIBLE EXP WHEEZING 100 ML RESIDUAL PT WAKES BREIFLY BUT FALLS BACK TO SLEEP
--- NOTE | 2018-10-17 11:30 | NUR ---
DR DOYLE BY TO SEE PT BHATTI CATH REMOVED PLAN FOR POSS PLACEMENT IN SNF WED
--- NOTE | 2018-10-17 13:15 | NUR ---
PT AT BEDSIDE ASKED TO TALK WITH SS RE PT GOING TO SNF HAD QUESTIONS WILL ALSO TALK WITH PALLATIVE CARE
--- NOTE | 2018-10-17 15:42 | NUR ---
TALKED WITH DIETARY RE PT BOLUS FEEDING PT HAD LG LOOSE STOOL INSTRUCTED TO HOLD NEXT BOLUS FOR 4 HR AND RESTART AT 3/4 CAN ALSO REQ ANDRE WILL ASK DR DOYLE PT DID NOT HAVE NAUSEA
--- NOTE | 2018-10-17 18:10 | NUR ---
PT SLEEPING WAKES TO VERBAL STIMULI PT STILL REPORTS UNABLE TO VOID BLADDER SCAN 510 ML CATH PLACED MEDS GIVEN 300 ML WATER BOLUS GIVEN 0 RESIDUAL NO NAUSEA
[2018-10-18 05:11] LABS: BASOPHILS ABSOLUTE AUTO 0.07 K/mm3 (0.00-0.23); BASOPHILS PERCENT AUTO 1 % (0-2); EOSINOPHILS ABSOLUTE AUTO 0.44 K/mm3 (0.00-0.68); EOSINOPHILS PERCENT AUTO 5 % (0-6); Hematocrit 30.8 % (37.0-53.0); Hemoglobin 8.9 g/dL (13.5-17.5); IMMATURE GRAN ABSOLUTE AUTO 0.15 K/mm3 (0.00-0.10); IMMATURE GRAN PERCENT AUTO 2 % (0-1); LYMPHOCYTES ABSOLUTE AUTO 0.72 K/mm3 (0.84-5.20); LYMPHOCYTES PERCENT AUTO 8 % (21-46); MONOCYTES ABSOLUTE AUTO 0.64 K/mm3 (0.16-1.47); MONOCYTES PERCENT AUTO 7 % (4-13); Mean Corpuscular HGB 26.4 pg (26.0-34.0); Mean Corpuscular HGB Conc 28.9 g/dL (31.5-36.5); Mean Corpuscular Volume 91 fL (80-100); Mean Platelet Volume 10.4 fL (9.1-12.4); NEUTROPHILS ABSOLUTE AUTO 7.28 K/mm3 (1.96-9.15); NEUTROPHILS PERCENT AUTO 78 % (41-73); Platelet Count 191 K/mm3 (150-400); RDW Coefficient Variation 16.2 % (11.7-14.2); RDW Standard Deviation 54.3 fL (35.1-46.3); Red Blood Cell Count 3.37 M/mm3 (4.30-5.90)
[2018-10-18 05:30] LABS: Albumin, Blood 1.3 g/dL (3.4-5.0); Anion Gap 5 mmol/L (6-16); Blood Urea Nitrogen 14 mg/dL (8-24); Bun/Creatinine Ratio 16.5 (12.0-20.0); CO2, Blood 28 mmol/L (21-32); Calcium, Blood 7.7 mg/dL (8.5-10.1); Chloride, Blood 109 mmol/L (98-108); Creatinine, Blood 0.85 mg/dL (0.60-1.20); Glomerular Filtration Rate >60 (60-); Glucose, Blood 171 mg/dL (70-99); Phosphorus, Blood 2.5 mg/dL (2.5-4.9); Potassium, Blood 4.6 mmol/L (3.5-5.5); Sodium, Blood 142 mmol/L (136-145)
--- NOTE | 2018-10-18 06:38 | NUR ---
LYING IN SEMI FOWLERS WITH EYES CLOSED. NO CHANGES SINCE START OF SHIFT. DRESSING CHANGE COMPLETED TO RLE STUMP AND TO LLE HEEL, TOLERATED WELL. REPOSITIONED, PERICARE, AND ORAL CARE PROVIDED PT WOULD ALLOW. TYLENOL GIVEN PPT FOR WARNER RATED AT 4/10, WILL REASSESS. DENIES FURTHER NEEDS AT THIS TIME. SAFETY MEASURES IN PLACE. WILL GIVE HAND OFF TO ONCOMING SHIFT USING SBAR.
--- NOTE | 2018-10-18 06:45 | NUR ---
SHIFT SUMMARY NO ACUTE CHANGES THIS SHIFT, V/S REMAINED WITHIN NORMAL LIMITS. PT COMPLAINING OF HEADACHE THIS SHIFT, MEDICATED WITH TYLENOL X1. PATIENT STATES MILD NAUSEA, RESOLVED WITH REST. PT IS TOLERATING TUBE FEEDING BOLUSES WELL. BKA DRESSING CHANGED, DRESSING TO WOUND ON L FOOT CHANGED. PT HAVING LIQUID STOOL, SAMI CARE WITH NYSTATIN CREAM AND POWDER NEEDED. PT IS COOPERATIVE WITH CARE, FLAT AND WITHDRAWN AFFECT. ENCOURAGE FREQUENT REPOSITIONING AND ORAL CARE.
--- NOTE | 2018-10-18 14:00 | NUR ---
REPORT FROM MITCHELL Christianson RN. ASSUMED PT CARE.
--- NOTE | 2018-10-18 14:20 | NUR ---
SPOKE WITH DIETARY RE PT FEEDS. DIETARY JUST CHANGED FEEDS YEST TO LOWER OSMOLALITY FORMULA AND DECREASED VOLUME OF FLUSH. PER PREVIOUS RN 1200 FEED HELD TO PT ABDOMINAL DISTENTION AND NAUSEA. WILL DISCUSS WITH PROVIDER.
--- NOTE | 2018-10-18 14:30 | NUR ---
SPOKE WITH DR DOYLE RE PT ABD DISTENTION, NO VOIDING SINCE BHATTI REMOVAL AND NO BOLUS FEED AT 1200. PROVIDER TO SPEAK WITH DIETARY.
--- NOTE | 2018-10-18 15:00 | NUR ---
PT MEDICATED PER EMAR. PLAN TO START CONT FEEDS AT 35ML/HR, GIVE LASIX AND OBSERVE FOR IMPROVEMENT.
--- NOTE | 2018-10-18 15:40 | NUR ---
DR CASPER TO ROOM FOR RE-EVAL OF STUMP AND TO REMOVE MARS.
--- NOTE | 2018-10-18 16:43 | NUR ---
PT MEDICATED WITH LASIX PER EMAR. PT REQUESTING SOMETHING FOR NAUSEA.
--- NOTE | 2018-10-18 17:00 | NUR ---
NO RESIDUAL TO PEG TUBE.
--- NOTE | 2018-10-18 17:09 | NUR ---
PT MEDICATED WITH ZOFRAN, CONT TUBE FEEDS STARTED AT 35ML/HR.
--- NOTE | 2018-10-18 18:30 | NUR ---
PT RESTING IN POSITION OF COMFORT. NADN. RESP EVEN AND NON LABORED. NAUSEA IMPROVED.
--- NOTE | 2018-10-18 19:21 | NUR ---
REPORT TO KAY HERMAN.
--- NOTE | 2018-10-19 01:52 | NUR ---
0120: PEG TUBE RESIDUAL CHECKED, 30ML. HOB ELEVATED; PT DENIES PAIN, DECLINES PAIN MEDICATION. PT STS NAUSEA WELL MANAGED. TUBE FEEDING CONT. RATE ADVANCED 10ML TO 45 ML/HR PER ORDERS. TM PT AND RESIDUAL.
--- NOTE | 2018-10-19 03:50 | NUR ---
.0350. PT REFUSES PAIN MEDICATION AND MEDICATION FOR NAUSEA. WXP WHEEZE, PT DENIES SOB AND DECLINES RT TX. PT REFUSES ORAL CARE. CALL LIGHT IN REACH.
[2018-10-19 04:45] LABS: Albumin, Blood 1.3 g/dL (3.4-5.0); Anion Gap 4 mmol/L (6-16); Blood Urea Nitrogen 16 mg/dL (8-24); Bun/Creatinine Ratio 16.6 (12.0-20.0); CO2, Blood 28 mmol/L (21-32); Calcium, Blood 7.7 mg/dL (8.5-10.1); Chloride, Blood 110 mmol/L (98-108); Creatinine, Blood 0.96 mg/dL (0.60-1.20); Glomerular Filtration Rate >60 (60-); Glucose, Blood 173 mg/dL (70-99); Phosphorus, Blood 2.9 mg/dL (2.5-4.9); Potassium, Blood 4.8 mmol/L (3.5-5.5); Sodium, Blood 142 mmol/L (136-145)
--- NOTE | 2018-10-19 07:05 | NUR ---
REPORT FROM KAY HERMAN. ASSUMED PT CARE.
--- NOTE | 2018-10-19 07:40 | NUR ---
PT SLEEPING. RESP EVEN AND NONLABORED.
--- NOTE | 2018-10-19 07:44 | NUR ---
SHIFT SUMMARY PT A&O X4 T/O SHIFT. POD#16 R BKA; SITE CDI, STUMP SOCK IN PLACE. CONT. FEEDING TO PEG TUBE PER EMAR WITH PROGRAMED FLUSH. MAX RESIDUAL 50 ML. RATE INCREASED PER ORDERS TO 45ML/HR AT APPROX. 0130; ABD DISTENDED, PT STS BASELINE. PAIN AND BLOOD SUGAR MANGED PER ORDERES/EMAR. SMALL SMEAR X1; HOB ELEVATED. PT NPO; PT REFUSED ORAL CARE. SCD TO LLE. DRESSING TO LLE CHANGED. PT REPOSITIONED T/O SHIFT. EXP WHEEZE AND DIM BASES BILAT LUNGS; PT REFUSED RT TX AND DENIED SOB. CALL LIGHT IN REACH; REPORT GIVEN TO DAY SHIFT RN.
--- NOTE | 2018-10-19 08:40 | NUR ---
PT MEDICATED PER EMAR. FAMILY AT BEDSIDE.
--- NOTE | 2018-10-19 09:05 | NUR ---
PT MEDICATED PER EMAR. MRSA CLEARANCE SWABS COLLECTED. TUBE FEEDS INFUSING, MEDS GIVEN PER TUBE. NO RESISTANCE. FAMILY AT BEDSIDE. ASSESSMENT CHARTED.
--- NOTE | 2018-10-19 09:20 | NUR ---
DR DOYLE TO ROOM FOR RE-CHECK AND ASSESSMENT. PLAN TO CONT FEED ADJUSTMENTS, PROVIDER WANTS TO DIURESE MORE AND SEE ABOUT TX TO SNF TODAY OR [facility]. PT FAMILY AWARE OF PLAN.
--- NOTE | 2018-10-19 09:45 | NUR ---
TUBE FEEDS RESUMED AFTER CHECKING RESIDUAL. NO RESIDUAL, RATE INCREASED TO 55ML/HR.
--- NOTE | 2018-10-19 10:05 | NUR ---
PT TO ROOM FOR EVAL AND ACTIVITY.
--- NOTE | 2018-10-19 11:47 | NUR ---
PT LYING IN POSITION OF COMFORT. NADN. FAMILY AT BEDSIDE. WILL CONT TO MONITOR.
--- NOTE | 2018-10-19 12:56 | NUR ---
PT MEDICATED PER EMAR. ASSISTED WITH URINAL. 325ML CLEAR YELLOW URINE COLLECTED. PT DENIES NEEDS.
--- NOTE | 2018-10-19 16:48 | NUR ---
PT RESTING IN POSITION OF COMFORT. ALLOWED RN TO APPLY LIP BALM. RESP EVEN AND NON LABORED.
--- NOTE | 2018-10-19 18:13 | NUR ---
TUBE FEED INCREASED TO 65ML/HR AFTER HOLDING (AND CHECKING RESIDUAL). NO RESIDUAL. PT TO WELL. DENIES PAIN/NAUSEA.
--- NOTE | 2018-10-19 18:38 | NUR ---
PT MEDICATED WITH LIQUID TYLENOL PER PEG TUBE (FOR C/O WARNER). FLUSHED WITH 30CC WATER.
--- NOTE | 2018-10-19 19:00 | NUR ---
REPORT AND WALKING ROUNDS WITH KAY HERMAN.
[2018-10-20 05:12] LABS: Albumin, Blood 1.4 g/dL (3.4-5.0); Anion Gap 3 mmol/L (6-16); Blood Urea Nitrogen 17 mg/dL (8-24); Bun/Creatinine Ratio 17.4 (12.0-20.0); CO2, Blood 29 mmol/L (21-32); Calcium, Blood 7.7 mg/dL (8.5-10.1); Chloride, Blood 109 mmol/L (98-108); Creatinine, Blood 0.98 mg/dL (0.60-1.20); Glomerular Filtration Rate >60 (60-); Glucose, Blood 173 mg/dL (70-99); Phosphorus, Blood 3.3 mg/dL (2.5-4.9); Potassium, Blood 4.8 mmol/L (3.5-5.5); Sodium, Blood 141 mmol/L (136-145)
--- NOTE | 2018-10-20 05:44 | NUR ---
SHIFT SUMMARY PT A&O X4 T/O SHIFT. R BKA; STUMP SOCK CDI. ABD CONT. TO BE DISTENDED; BTX4. BM X2. CONT. PEG FEEDING PER ORDERS; AUTO Q4 FLUSH; LITTLE RESIDUAL. ABD PAIN, WARNER AND NAUSEA MANAGED PER EMAR. PT NPO. BLOOD GLUCOSE MANAGED PER EMAR. PT DENIES SOB; RA. EDEMA AND REDNESS TO SAMI-AREA, SCROTUM, AND THIGHS. MULTI-LAYER FOAM DRESSING TO COCCYX. BLE ELEVATED. PT REPOSITIONED PT TOLERATED. SCD TO LLE. CALL LIGHT IN REACH. WCTM UNTIL REPORT TO DAY SHIFT RN.
--- NOTE | 2018-10-20 07:00 | NUR ---
REPORT FROM KAY HERMAN. ASSUMED PT CARE.
--- NOTE | 2018-10-20 07:20 | NUR ---
PT APPEARS TO BE SLEEPING. NADN. RESP EVEN AND NON LABORED.
--- NOTE | 2018-10-20 07:27 | NUR ---
0600 NEW TUBING AND BAGS FOR FEED PUMP; 10 ML RESIDUAL RETURNED. HOB ELEVATED. REPORT GIVEN TO DAY SHIFT RN.
--- NOTE | 2018-10-20 08:42 | NUR ---
PT MEDICATED WITH SCHEDULED MEDS PER EMAR. PT TIFFANIE TUBE FEEDS AT 65ML/HR. DENIES NAUSEA THIS AM. PT TOOK PILLS WITHOUT ISSUE. PT ABD STILL DISTENDED BUT SOFT. PT FAMILY AT BEDSIDE AT THIS TIME. DRESSING TO LEFT HEEL CHANGED. NEW MEPILEX PLACED.
--- NOTE | 2018-10-20 09:15 | NUR ---
ASSISTED PT WITH URINAL. 150ML CLEAR YELLOW URINE COLLECTED. ICE WATER PROVIDED.
--- NOTE | 2018-10-20 10:05 | NUR ---
DR DOYLE TO ROOM FOR RE-EVAL AND UPDATE. PLAN TO DC PT TO SNF TODAY. DC COMMERCIAL SALES REPRESENTATIVE FAHAD COTO. WILL COORDINATE TRANSPORT.
--- NOTE | 2018-10-20 11:30 | NUR ---
TRANSPORT ARRANGEMENTS MADE. 1500 ARRIVAL TIME.
--- NOTE | 2018-10-20 11:58 | NUR ---
PT MEDICATED WITH INSULIN 7 UNITS SC FOR A CBG OF 210. FAMILY LEAVING FOR A FEW.
--- NOTE | 2018-10-20 14:30 | NUR ---
REPORT TO [facility] STAFF.
--- NOTE | 2018-10-20 15:00 | NUR ---
POWER GLIDE IV REMOVED FROM RIGHT UPPER ARM. DRESSING PLACED. PT INCONTINENT OF LARGE AMOUNT OF URINE. PERICARE PERFORMED. NEW ATTENDS AND PAD PLACED. AWAITING TX TO SNF. ALL BELONGINGS GATHERED AND PLACED IN BAGS.
--- NOTE | 2018-10-20 15:20 | NUR ---
WITH MULT STAFF ASSISTANCE AND USE OF LIFT IN ROOM PT INTO CHAIR FOR TRANSPORT TO SNF. ALL BELONGINGS SENT WITH PT.
== END 2018-10-20 15:20 | DRG 853 ==
LOC: ER 14:15 → PCU 16:37 → ICUW 16:37 → SURS 16:37 → ICUW 18:05 → PCU 10-01 15:42 → SURS 10-05 15:21
PROVIDERS: Emergency Medicine; Family Medicine; Hospitalist; Internal Medicine; Internal Medicine Critical Care Medicine; Internal Medicine Pulmonary Disease; Orthopaedic Surgery; ADMIT Internal Medicine
PROC: 02HV33Z Insertion of Infusion Device into Superior Vena Cava, Percutaneous Approach (ICD-10-PCS; 2018-09-22)
PROC: 0BH17EZ Insertion of Endotracheal Airway into Trachea, Via Natural or Artificial Opening (ICD-10-PCS; 2018-09-22)
PROC: 5A1955Z Respiratory Ventilation, Greater than 96 Consecutive Hours (ICD-10-PCS; 2018-09-22)
PROC: 0Y6H0Z1 Detachment at Right Lower Leg, High, Open Approach (ICD-10-PCS; principal; 2018-10-04 15:30)
PROC: 0DH63UZ Insertion of Feeding Device into Stomach, Percutaneous Approach (ICD-10-PCS; 2018-10-08)
PROC: 0DJ08ZZ Inspection of Upper Intestinal Tract, Via Natural or Artificial Opening Endoscopic (ICD-10-PCS; 2018-10-08)
DX: A41.89 Other specified sepsis (principal); J12.9 Viral pneumonia, unspecified; R65.21 Severe sepsis with septic shock; J96.01 Acute respiratory failure with hypoxia; G93.41 Metabolic encephalopathy; J80 Acute respiratory distress syndrome; N17.9 Acute kidney failure, unspecified; E44.0 Moderate protein-calorie malnutrition; M86.9 Osteomyelitis, unspecified; E87.0 Hyperosmolality and hypernatremia; L97.423 Non-pressure chronic ulcer of left heel and midfoot with necrosis of muscle; L97.426 Non-pressure chronic ulcer of left heel and midfoot with bone involvement without evidence of necrosis; B97.10 Unspecified enterovirus as the cause of diseases classified elsewhere; B97.89 Other viral agents as the cause of diseases classified elsewhere; E11.69 Type 2 diabetes mellitus with other specified complication; Z79.4 Long term (current) use of insulin; K70.31 Alcoholic cirrhosis of liver with ascites; B19.20 Unspecified viral hepatitis C without hepatic coma; E11.65 Type 2 diabetes mellitus with hyperglycemia; E11.22 Type 2 diabetes mellitus with diabetic chronic kidney disease; I12.9 Hypertensive chronic kidney disease with stage 1 through stage 4 chronic kidney disease, or unspecified chronic kidney disease; N18.3 Chronic kidney disease, stage 3 (moderate); Z85.118 Personal history of other malignant neoplasm of bronchus and lung; E11.621 Type 2 diabetes mellitus with foot ulcer; E78.5 Hyperlipidemia, unspecified; Z87.891 Personal history of nicotine dependence; I25.10 Atherosclerotic heart disease of native coronary artery without angina pectoris; F32.9 Major depressive disorder, single episode, unspecified; R13.10 Dysphagia, unspecified; Z79.82 Long term (current) use of aspirin
CPT/HCPCS: 31500; 31720; 36415; 36430; 36556; 36600; 51702; 70450; 71045; 71046; 74018; 74177; 74230; 76770; 80048; 80053; 80069; 80202; 81001; 82010; 82140; 82330; 82607; 82728; 82746; 82803; 82947; 83036; 83540; 83550; 83605; 83735; 83880; 84100; 84484; 85014; 85018; 85025; 85027; 85610; 85651; 85730; 86850; 86900; 86901; 86923; 87040; 87070; 87076; 87081; 87086; 87205; 87486; 87493; 87581; 87633; 87798; 88305; 88307; 88342; 92526; 92610; 92611; 93005; 93010; 93308; 93321; 93971; 94002; 94003; 94640; 94660; 94760; 96361-59; 96365-59; 96367-59; 97110; 97162; 97166; 97168; 97530; 99291-25; 99292; A9270-GY; C1751; C1769; C9113; G0480; J0330; J0610; J1170; J1650; J1815; J1940; J1956; J2250; J2270; J2370; J2405; J2543; J2704; J3010; J3370; J3475; J7030; J7040; J7050; J7060; J7070; J7120; P9016; Q9967

== ENCOUNTER → 2019-03-07 | Outpatient (CLI) | payer MEDICARE | END | disposition home or self-care (01) | LOC: LAB SHORT 12:17 → LAB 12:17 | DX: L89.152 Pressure ulcer of sacral region, stage 2 (principal) | CPT/HCPCS: 87070; 87075; 87077; 87186; 87205 ==

== ENCOUNTER → 2019-10-12 | Outpatient (CLI) | payer MEDICARE | LOC: LAB SHORT 15:06 → LAB 15:06 | DX: K92.1 Melena (principal) | CPT/HCPCS: 87338 ==

== ENCOUNTER 2019-12-28 11:43 | Day surgery (SDC) | payer MEDICARE ==
[~2019-12-28] VITALS: Ht 185.4 cm; Wt 111.4 kg
[2019-12-28] MEDS ORDERED: HYDPAM25 (12:22)
[2019-12-28] MEDS ORDERED: PREG75 (12:23)
[2019-12-28] MEDS ORDERED: IRON18 MG (12:23)
[2019-12-28] MEDS ORDERED: NADO40 (12:24)
[2019-12-28] MEDS ORDERED: MIRT30 (12:24)
[2019-12-28] MEDS ORDERED: TORS10 (12:24)
[2019-12-28] MEDS ORDERED: TAMS.4ER (12:24)
== END 2019-12-28 13:35 | disposition home or self-care (01) ==
LOC: ORSCSDS 11:43
PROVIDERS: Internal Medicine Gastroenterology
PROC: 0DJ08ZZ Inspection of Upper Intestinal Tract, Via Natural or Artificial Opening Endoscopic (ICD-10-PCS; principal; 2019-12-28 13:00)
DX: K92.1 Melena (principal); C22.0 Liver cell carcinoma; I85.00 Esophageal varices without bleeding; K76.6 Portal hypertension; K31.89 Other diseases of stomach and duodenum; I25.10 Atherosclerotic heart disease of native coronary artery without angina pectoris; E11.22 Type 2 diabetes mellitus with diabetic chronic kidney disease; D64.9 Anemia, unspecified; I12.9 Hypertensive chronic kidney disease with stage 1 through stage 4 chronic kidney disease, or unspecified chronic kidney disease; N18.9 Chronic kidney disease, unspecified; K21.9 Gastro-esophageal reflux disease without esophagitis; E66.9 Obesity, unspecified; Z68.32 Body mass index [BMI] 32.0-32.9, adult; Z79.4 Long term (current) use of insulin; Z79.899 Other long term (current) drug therapy; Z86.19 Personal history of other infectious and parasitic diseases
CPT/HCPCS: 82947; J2704; J7120

== ENCOUNTER 2020-04-03 13:04 | Inpatient (IN) | payer MEDICARE ==
[~2020-04-03] VITALS: Ht 185.4 cm; Wt 129.7 kg
[~2020-04-03 13:04] MED LIST changes: +BASAGLAR K100 UNIT/1 SC; +HUMALOG KW100 UNIT/1 SC; +HYDPAM25; -INSULANPEN SC; +IRON18 MG; +MIRT30; +MULTI VITAMIN1 EACH PO; +NADO40; +PREG75; +TAMS.4ER; -THERA1 EACH PO; +TORS10
[2020-04-03 13:52] LABS: BASOPHILS ABSOLUTE AUTO 0.07 K/mm3 (0.00-0.23); BASOPHILS PERCENT AUTO 1 % (0-2); EOSINOPHILS ABSOLUTE AUTO 0.06 K/mm3 (0.00-0.68); EOSINOPHILS PERCENT AUTO 1 % (0-6); Hematocrit 39.4 % (37.0-53.0); Hemoglobin 11.6 g/dL (13.5-17.5); IMMATURE GRAN ABSOLUTE AUTO 0.25 K/mm3 (0.00-0.10); IMMATURE GRAN PERCENT AUTO 3 % (0-1); LYMPHOCYTES ABSOLUTE AUTO 0.54 K/mm3 (0.84-5.20); LYMPHOCYTES PERCENT AUTO 6 % (21-46); MONOCYTES ABSOLUTE AUTO 0.67 K/mm3 (0.16-1.47); MONOCYTES PERCENT AUTO 7 % (4-13); Mean Corpuscular HGB Conc 29.4 g/dL (31.5-36.5); Mean Corpuscular Volume 88 fL (80-100); Mean Platelet Volume 11.9 fL (9.1-12.4); NEUTROPHILS ABSOLUTE AUTO 7.75 K/mm3 (1.96-9.15); NEUTROPHILS PERCENT AUTO 83 % (41-73); NRBC ABSOLUTE 0.02 K/mm3 (0.00-0.02); NRBC Auto 0.2 /100 WBC (0.0-0.2); Platelet Count 127 K/mm3 (150-400); RDW Coefficient Variation 15.8 % (11.7-14.2); RDW Standard Deviation 50.4 fL (35.1-46.3); Red Blood Cell Count 4.47 M/mm3 (4.30-5.90); White Blood Cell Count 9.34 K/mm3 (4.00-11.30)
[2020-04-03 14:13] LABS: Albumin, Blood 2.5 g/dL (3.4-5.0); Albumin/Globulin Ratio 0.6 (0.8-1.8); Bilirubin, Total 0.4 mg/dL (0.1-1.0); Bun/Creatinine Ratio 21.8 (12.0-20.0); Calcium, Blood 8.1 mg/dL (8.5-10.1); Creatinine, Blood 2.94 mg/dL (0.60-1.20); Globulin, Blood 4.5 g/dL (2.2-4.0); Potassium, Blood 4.8 mmol/L (3.5-5.5); Troponin I 0.046 ng/mL (0.000-0.040)
[2020-04-03] MEDS ORDERED: TAMSULOSIN HCL0.4 M1 PO (15:58)
[2020-04-03] MEDS ORDERED: FLUT.05NI (15:58)
[2020-04-03] MEDS ORDERED: PREGABALIN75 MG PO (15:58)
[2020-04-03] MEDS ORDERED: FUROSEMIDE20 MG PO (15:58)
[2020-04-03] MEDS ORDERED: REMERON30 MG PO (15:59)
[2020-04-03] MEDS ORDERED: OMEP20ER PO (15:59)
[2020-04-03] MEDS ORDERED: BASAGLAR K100 UNIT/1 (15:59)
[2020-04-03] MEDS ORDERED: SPIRIVA RESPIMAT4 G3 INH (15:59)
[2020-04-03] MEDS ORDERED: HYDHCL25 PO (16:01)
[2020-04-03] MEDS ORDERED: Nadolol40 MG PO (16:01)
[2020-04-04 04:06] LABS: Source, Urine Catheter
[2020-04-04 04:14] LABS: Bilirubin, Urine Neg (Neg); Blood, Urine 1+ (Neg); Glucose Qualitative, Urine Neg (Neg); Ketones, Urine Neg (Neg); Leukocyte Esterase, Urine 1+ (Neg); Nitrite, Urine Neg (Neg); Protein, Urine Neg (Neg); Specific Gravity, Urine 1.015 (1.003-1.022); Urobilinogen, Urine NORM (Normal)
[2020-04-04 04:24] LABS: Appearance, Urine Hazy (Clear); Color, Urine Yellow (P-Yellow)
[2020-04-04 04:25] LABS: Bacteria Rare /hpf; Hyaline Casts TNTC /lpf (0-2); Red Blood Cells, Urine 0-2 /hpf (0-2); Squamous Epithelial Cells Not Seen /hpf (Few); Yeast/Fungi Urine Many /hpf
[2020-04-04 05:35] LABS: Hematocrit 35.7 % (37.0-53.0); Hemoglobin 10.6 g/dL (13.5-17.5); Mean Corpuscular HGB 26.2 pg (26.0-34.0); Mean Corpuscular HGB Conc 29.7 g/dL (31.5-36.5); Mean Corpuscular Volume 88 fL (80-100); Mean Platelet Volume 11.9 fL (9.1-12.4); NRBC ABSOLUTE 0.02 K/mm3 (0.00-0.02); NRBC Auto 0.3 /100 WBC (0.0-0.2); Platelet Count 111 K/mm3 (150-400); RDW Coefficient Variation 15.7 % (11.7-14.2); RDW Standard Deviation 49.6 fL (35.1-46.3); Red Blood Cell Count 4.05 M/mm3 (4.30-5.90); White Blood Cell Count 7.78 K/mm3 (4.00-11.30)
[2020-04-04 05:57] LABS: Albumin, Blood 2.3 g/dL (3.4-5.0); Anion Gap 4 mmol/L (6-16); Blood Urea Nitrogen 69 mg/dL (8-24); Bun/Creatinine Ratio 24.6 (12.0-20.0); CO2, Blood 30 mmol/L (21-32); Calcium, Blood 7.9 mg/dL (8.5-10.1); Chloride, Blood 105 mmol/L (98-108); Creatinine, Blood 2.81 mg/dL (0.60-1.20); Glomerular Filtration Rate 25 (60-); Glucose, Blood 188 mg/dL (70-99); Phosphorus, Blood 5.1 mg/dL (2.5-4.9); Potassium, Blood 4.3 mmol/L (3.5-5.5); Sodium, Blood 139 mmol/L (136-145)
[2020-04-05 05:55] LABS: Albumin, Blood 2.1 g/dL (3.4-5.0); Anion Gap 4 mmol/L (6-16); Blood Urea Nitrogen 66 mg/dL (8-24); Bun/Creatinine Ratio 30.8 (12.0-20.0); CO2, Blood 30 mmol/L (21-32); Calcium, Blood 7.9 mg/dL (8.5-10.1); Chloride, Blood 107 mmol/L (98-108); Creatinine, Blood 2.14 mg/dL (0.60-1.20); Glomerular Filtration Rate 34 (60-); Glucose, Blood 93 mg/dL (70-99); Potassium, Blood 4.5 mmol/L (3.5-5.5); Sodium, Blood 141 mmol/L (136-145)
[2020-04-06 05:41] LABS: Albumin, Blood 2.2 g/dL (3.4-5.0); Anion Gap 4 mmol/L (6-16); Blood Urea Nitrogen 55 mg/dL (8-24); Bun/Creatinine Ratio 33.1 (12.0-20.0); CO2, Blood 33 mmol/L (21-32); Calcium, Blood 8.1 mg/dL (8.5-10.1); Chloride, Blood 108 mmol/L (98-108); Creatinine, Blood 1.66 mg/dL (0.60-1.20); Glomerular Filtration Rate 45 (60-); Glucose, Blood 82 mg/dL (70-99); Phosphorus, Blood 3.4 mg/dL (2.5-4.9); Potassium, Blood 4.5 mmol/L (3.5-5.5); Sodium, Blood 145 mmol/L (136-145)
[2020-04-06] MEDS ORDERED: SPIR25 PO (12:31)
== END 2020-04-06 13:59 | disposition home or self-care (01) | DRG 291 ==
LOC: ER 13:04 → MEDS 13:05 → ER 17:51 → MEDS 18:07
PROVIDERS: Emergency Medicine; Hospitalist; Internal Medicine; ADMIT Internal Medicine
DX: I13.0 Hypertensive heart and chronic kidney disease with heart failure and stage 1 through stage 4 chronic kidney disease, or unspecified chronic kidney disease (principal); J96.01 Acute respiratory failure with hypoxia; I50.31 Acute diastolic (congestive) heart failure; N17.9 Acute kidney failure, unspecified; C22.9 Malignant neoplasm of liver, not specified as primary or secondary; N18.31 Chronic kidney disease, stage 3a; E11.22 Type 2 diabetes mellitus with diabetic chronic kidney disease; Z79.4 Long term (current) use of insulin; J44.9 Chronic obstructive pulmonary disease, unspecified; Z85.118 Personal history of other malignant neoplasm of bronchus and lung; Z87.891 Personal history of nicotine dependence; R33.8 Other retention of urine; Z89.511 Acquired absence of right leg below knee; B19.20 Unspecified viral hepatitis C without hepatic coma; D63.8 Anemia in other chronic diseases classified elsewhere; R13.10 Dysphagia, unspecified; F32.9 Major depressive disorder, single episode, unspecified; E11.65 Type 2 diabetes mellitus with hyperglycemia; K70.31 Alcoholic cirrhosis of liver with ascites; E88.09 Other disorders of plasma-protein metabolism, not elsewhere classified; D69.6 Thrombocytopenia, unspecified
CPT/HCPCS: 36415; 71045; 80053; 80069; 81001; 82947; 83880; 84484; 85025; 85027; 87086; 87106; 93005; 93010; 94640; 94760; 96374; 96376; 99285-25; A9270-GY; G0008; G0378; J1940; Q2038

== ENCOUNTER → 2020-04-16 | Outpatient (CLI) | payer MEDICARE ==
[~2020-04-16] MED LIST changes: +BASAGLAR K100 UNIT/1; +FLUT.05NI; +FUROSEMIDE20 MG PO; +HYDHCL25 PO; +Nadolol40 MG PO; +OMEP20ER PO; +PREGABALIN75 MG PO; +REMERON30 MG PO; +SPIR25 PO; +SPIRIVA RESPIMAT4 G3 INH; +TAMSULOSIN HCL0.4 M1 PO
[2020-04-16 16:12] LABS: Albumin, Blood 2.4 g/dL (3.4-5.0); Anion Gap 2 mmol/L (6-16); Blood Urea Nitrogen 25 mg/dL (8-24); Bun/Creatinine Ratio 16.6 (12.0-20.0); CO2, Blood 32 mmol/L (21-32); Calcium, Blood 8.3 mg/dL (8.5-10.1); Chloride, Blood 111 mmol/L (98-108); Creatinine, Blood 1.51 mg/dL (0.60-1.20); Glomerular Filtration Rate 50 (60-); Glucose, Blood 105 mg/dL (70-99); Phosphorus, Blood 3.2 mg/dL (2.5-4.9); Potassium, Blood 4.6 mmol/L (3.5-5.5); Sodium, Blood 145 mmol/L (136-145)
== END | disposition home or self-care (01) ==
LOC: LAB SHORT 13:09 → OLS 13:09
PROVIDERS: Internal Medicine
DX: I50.9 Heart failure, unspecified (principal); N17.9 Acute kidney failure, unspecified
CPT/HCPCS: 36415; 80069

== ENCOUNTER 2020-07-18 16:54 | Inpatient (IN) | payer MEDICARE, SELFPAY ==
[~2020-07-18] VITALS: Ht 185.4 cm; Wt 112.2 kg
[~2020-07-18 16:54] MED LIST changes: -BASAGLAR K100 UNIT/1 SC; -FUROSEMIDE20 MG PO; -OMEP20ER PO; -PREGABALIN75 MG PO; -REMERON30 MG PO; -SPIR25 PO; -SPIRIVA RESPIMAT4 G3 INH; -TAMSULOSIN HCL0.4 M1 PO
[2020-07-18 17:56] LABS: BASOPHILS ABSOLUTE AUTO 0.03 K/mm3 (0.00-0.23); BASOPHILS PERCENT AUTO 1 % (0-2); EOSINOPHILS ABSOLUTE AUTO 0.11 K/mm3 (0.00-0.68); EOSINOPHILS PERCENT AUTO 3 % (0-6); Hemoglobin 7.3 g/dL (13.5-17.5); IMMATURE GRAN ABSOLUTE AUTO 0.01 K/mm3 (0.00-0.10); IMMATURE GRAN PERCENT AUTO 0 % (0-1); LYMPHOCYTES ABSOLUTE AUTO 0.42 K/mm3 (0.84-5.20); LYMPHOCYTES PERCENT AUTO 10 % (21-46); MONOCYTES PERCENT AUTO 7 % (4-13); Mean Corpuscular HGB 21.1 pg (26.0-34.0); Mean Corpuscular Volume 78 fL (80-100); NEUTROPHILS ABSOLUTE AUTO 3.21 K/mm3 (1.96-9.15); NEUTROPHILS PERCENT AUTO 79 % (41-73); Platelet Count 95 K/mm3 (150-400); RDW Coefficient Variation 21.7 % (11.7-14.2); RDW Standard Deviation 61.9 fL (35.1-46.3); Red Blood Cell Count 3.46 M/mm3 (4.30-5.90); White Blood Cell Count 4.08 K/mm3 (4.00-11.30)
[2020-07-18 18:13] LABS: Albumin, Blood 2.6 g/dL (3.4-5.0); Albumin/Globulin Ratio 0.7 (0.8-1.8); Bilirubin, Total 0.6 mg/dL (0.1-1.0); Calcium, Blood 8.4 mg/dL (8.5-10.1); Creatinine, Blood 1.86 mg/dL (0.60-1.20); Globulin, Blood 3.9 g/dL (2.2-4.0); Potassium, Blood 4.8 mmol/L (3.5-5.5); Total Protein, Blood 6.5 g/dL (6.4-8.2)
[2020-07-18] MEDS ORDERED: PREGABALIN75 MG PO (22:24)
[2020-07-18] MEDS ORDERED: OMEP20ER PO (22:24)
[2020-07-18] MEDS ORDERED: Inderal40 MG PO (22:25)
[2020-07-18] MEDS ORDERED: Ventolin/Prove6.7 GM INH (22:26)
[2020-07-18] MEDS ORDERED: REMERON30 MG PO (22:27)
[2020-07-18] MEDS ORDERED: SPIR25 PO (22:28)
[2020-07-18] MEDS ORDERED: SPIRIVA RESPIMAT4 G3 INH (22:28)
[2020-07-18] MEDS ORDERED: TAMSULOSIN HCL0.4 M1 PO (22:28)
[2020-07-18] MEDS ORDERED: BASAGLAR K100 UNIT/1 SC (22:29)
[2020-07-18] MEDS ORDERED: SUCR1 PO (22:30)
[2020-07-18] MEDS ORDERED: FLUOXETINE HCL60 MG PO (22:30)
[2020-07-18] MEDS ORDERED: FURO40 PO (22:31)
[2020-07-18 22:32] LABS: Magnesium, Blood 2.2 mg/dL (1.6-2.4)
[2020-07-18] MEDS ORDERED: ANORO ELLIPTA1 EAC1 INH (22:32)
[2020-07-18 22:55] LABS: International Normalized Ratio 1.16; Prothrombin Time Results 12.3 Sec (9.7-11.5)
[2020-07-18 23:44] LABS: Hematocrit 23.6 % (37.0-53.0); Hemoglobin 6.4 g/dL (13.5-17.5)
[2020-07-18 23:53] LABS: Influenza A, PCR Negative (NEGATIVE); Influenza B, PCR Negative (NEGATIVE); Resp Syncytial Virus, PCR Negative (NEGATIVE); SARS-Cov-2 (COVID-19) PCR, MMC Negative (NEGATIVE)
[2020-07-19 06:17] LABS: BASOPHILS ABSOLUTE AUTO 0.02 K/mm3 (0.00-0.23); BASOPHILS PERCENT AUTO 1 % (0-2); EOSINOPHILS ABSOLUTE AUTO 0.11 K/mm3 (0.00-0.68); EOSINOPHILS PERCENT AUTO 4 % (0-6); Hematocrit 24.3 % (37.0-53.0); Hemoglobin 6.7 g/dL (13.5-17.5); IMMATURE GRAN ABSOLUTE AUTO 0.02 K/mm3 (0.00-0.10); IMMATURE GRAN PERCENT AUTO 1 % (0-1); LYMPHOCYTES ABSOLUTE AUTO 0.56 K/mm3 (0.84-5.20); LYMPHOCYTES PERCENT AUTO 19 % (21-46); MONOCYTES ABSOLUTE AUTO 0.27 K/mm3 (0.16-1.47); MONOCYTES PERCENT AUTO 9 % (4-13); Mean Corpuscular HGB 21.9 pg (26.0-34.0); Mean Corpuscular HGB Conc 27.6 g/dL (31.5-36.5); Mean Corpuscular Volume 79 fL (80-100); NEUTROPHILS ABSOLUTE AUTO 1.91 K/mm3 (1.96-9.15); NEUTROPHILS PERCENT AUTO 66 % (41-73); Platelet Count 71 K/mm3 (150-400); RDW Standard Deviation 60.8 fL (35.1-46.3); Red Blood Cell Count 3.06 M/mm3 (4.30-5.90); White Blood Cell Count 2.89 K/mm3 (4.00-11.30)
[2020-07-19 06:46] LABS: Albumin, Blood 2.5 g/dL (3.4-5.0); Albumin/Globulin Ratio 0.8 (0.8-1.8); Bun/Creatinine Ratio 28.1 (12.0-20.0); Creatinine, Blood 1.92 mg/dL (0.60-1.20); Globulin, Blood 3.3 g/dL (2.2-4.0); Potassium, Blood 4.6 mmol/L (3.5-5.5); Total Protein, Blood 5.8 g/dL (6.4-8.2)
--- NOTE | 2020-07-19 07:54 | NUR ---
SHIFT SUMMARY PT ARRIVED TO THE UNIT AROUND 0000 IN STABLE CONDTION. BP 130'S SYSTOLIC. HR 60-70'S. O2 >90% ON ROOM AIR. NO COMPLAINTS OF PAIN OR DISCOMFORT. ARMS HAD PARKINSON-LIKE SHAKE, PT STATED THIS WAS NEW IN THE PAST COUPLE MONTHS. HGB WAS <7, TRANSFUSED 1 UNIT PRBC T/O MOST OF THE MORNING, NO ADVERSE REACTION. PT SLEEPING AND COMFORTABLE.
--- NOTE | 2020-07-19 09:23 | NUR ---
Update: Started PRBC transfusion. Pt was given s/s of possible blood reaction. Denies questions or concerns. VSS. LS clear. Call light in reach.
[2020-07-19 13:25] LABS: Hematocrit 28.6 % (37.0-53.0); Hemoglobin 8.2 g/dL (13.5-17.5)
--- NOTE | 2020-07-19 17:09 | NUR ---
PT SUMMARY: PT DENIES HAVING ANY HEMATEMESIS/ BLOODY BLACK STOOLS FOR THE SHIFT, PT WAS KEPT NPO FOR EGD PROCEDURE TODAY VERIFIED WITH DR CASTILLO PT SCHEDULED AT 7PM. NO ACUTE CHANGE FOR THE SHIFT VITALS HRR SR AT 70'S, BP SYSTOLIC 130-140'S, SATS ABOVE 95% ON RA, AFEBRILE. PT WAS GIVEN 2ND BAG OF 1U PRBC THIS AM HGB POST TRANSFUSION IS AT 8.2. PT DENIES ANY PAIN BUT HAS SOME TREMORS/OCCASIONAL JERKY MOVEMENTS PT STATED ITS HIS NEUROPATHY REFUSED TO TAKE HIS LYRICA THIS AM PT WAS ONLY TAKING IT AT HOME NEEDED. PT IN BED ALL SHIFT MOST OF THE SHIFT, ABLE TO REPOSITION SELF IN BED, ALERT AND ORIENTED AT BASELINE. USES URINAL FOR VOIDING. WAS IN TO VISIT DURING VISITING HRS. NO OTHER ISSUES ENCOUNTERED FOR THE SHIFT, ABLE TO MAKE NEEDS KNOWN, PT CURRENTLY WAITING FOR PROCEDURE AT 7P. WILL MONITOR TIL THE END OF THE SHIFT.
[2020-07-19 17:40] LABS: Hematocrit 30.3 % (37.0-53.0); Hemoglobin 8.6 g/dL (13.5-17.5)
--- NOTE | 2020-07-19 18:55 | NUR ---
07/19/20 8255 Fab Latif History, Chart, Medications and Allergies reviewed before start of procedure.MONITOR INTACT WITH CONTINUOUS PULSE OXIMETRY AND INTERMITTENT BP.3-LEAD EKG REVIEWED WITH PHYSICIAN PRIOR TO START OF PROCEDURE.O2 VIA N/C INTACT THROUGHOUT SEDATION/PROCEDURE. See Anesthesia record.
--- NOTE | 2020-07-20 05:47 | NUR ---
SHIFT SUMMARY PT WAS PLEASENT AND COOPERATIVE WITH CARE. PT RETURNED FROM EGD PROCEDURE AROUND 1930 IN STABLE CONDTION. BP 120'S SYSTOLIC. HR 60-70'S. O2 SATS >90% ON ROOM AIR. PT DID NOT REPORT ANY PAIN, STATED FEELING BETTER BY AM. PT HAS BEEN ONLY WATER T/O SHIFT, WILL TRANSFER TO NPO AT 0900. BLOOD GLUCOSE HAS BEEN STABLE. PT HAD A QUIET, UNEVENTFUL NIGHT, EAGER FOR SCOPE TODAY.
[2020-07-20 09:03] LABS: Hematocrit 32.8 % (37.0-53.0); Hemoglobin 9.1 g/dL (13.5-17.5); Mean Corpuscular HGB 22.5 pg (26.0-34.0); Mean Corpuscular HGB Conc 27.7 g/dL (31.5-36.5); Mean Corpuscular Volume 81 fL (80-100); Platelet Count 94 K/mm3 (150-400); RDW Standard Deviation 58.7 fL (35.1-46.3); Red Blood Cell Count 4.05 M/mm3 (4.30-5.90); White Blood Cell Count 5.17 K/mm3 (4.00-11.30)
[2020-07-20 09:11] LABS: Mean Platelet Volume 10.8 fL (9.1-12.4)
[2020-07-20 09:23] LABS: Albumin, Blood 2.7 g/dL (3.4-5.0); Albumin/Globulin Ratio 0.7 (0.8-1.8); Bun/Creatinine Ratio 24.7 (12.0-20.0); Creatinine, Blood 1.94 mg/dL (0.60-1.20); Globulin, Blood 3.7 g/dL (2.2-4.0); Potassium, Blood 4.6 mmol/L (3.5-5.5); Total Protein, Blood 6.4 g/dL (6.4-8.2)
--- NOTE | 2020-07-20 14:04 | NUR ---
07/20/20 1404 Fab Latif History, Chart, Medications and Allergies reviewed before start of procedure.MONITOR INTACT WITH CONTINUOUS PULSE OXIMETRY AND INTERMITTENT BP.3-LEAD EKG REVIEWED WITH PHYSICIAN PRIOR TO START OF PROCEDURE.O2 VIA N/C INTACT THROUGHOUT SEDATION/PROCEDURE. See Anesthesia record.
--- NOTE | 2020-07-20 17:12 | NUR ---
PT SUMMARY: PT WENT TO SECOND SCOPE TODAY WAS UNSUCCESSFUL AGAIN DUE TO FOOD REMAINS ON THE STOMACH, DR CASTILLO ORDERED ABD CT SCAN WITH ORAL CONTRAST FOR POSS BOWEL OBSTRUCTION AND DISTENDED ABDOMEN. HOWEVER, PT HAS NO ACUTE CHANGE FOR THE SHIFT, VITALS HAS BEEN STABLE. STATUS CHANGED TO MEDICAL WITH NO TELE. PT HAS BEEN UP IN THE ROOM USES HIS RBKA PROSTHESIS AND WALKER VIA SBA. PT CALLS APPROPRIATELY FOR HELP, ALERT AND ORIENTED. PT DENIES ANY CHEST PAIN, NAUSEA AND VOMITING, NO REPORTED BM WELL FOR THE LAST 3 DAYS. DIET RESUMED TO CLEAR LIQUID DIET, PT CURRENTLY ON PREP FOR THE ABD CT SCAN, WILL RE-ATTEMPT EGD ON Tuesday07/22/20. PT HGB STABLE AT 9.1 NO REPORTED ANY ACTIVE BLEEDING AT THIS TIME. PT NOW IN BED RESTING AT BEDSIDE AWARE OF THE PLAN. CALL LIGHTS IN REACH. WILL MONITOR UNTIL END OF SHIFT
[2020-07-21 04:47] LABS: BASOPHILS ABSOLUTE AUTO 0.02 K/mm3 (0.00-0.23); BASOPHILS PERCENT AUTO 1 % (0-2); EOSINOPHILS ABSOLUTE AUTO 0.11 K/mm3 (0.00-0.68); EOSINOPHILS PERCENT AUTO 3 % (0-6); Hematocrit 28.7 % (37.0-53.0); IMMATURE GRAN ABSOLUTE AUTO 0.01 K/mm3 (0.00-0.10); IMMATURE GRAN PERCENT AUTO 0 % (0-1); LYMPHOCYTES ABSOLUTE AUTO 0.42 K/mm3 (0.84-5.20); LYMPHOCYTES PERCENT AUTO 11 % (21-46); MONOCYTES ABSOLUTE AUTO 0.29 K/mm3 (0.16-1.47); MONOCYTES PERCENT AUTO 8 % (4-13); Mean Corpuscular HGB 22.3 pg (26.0-34.0); Mean Corpuscular HGB Conc 27.9 g/dL (31.5-36.5); Mean Corpuscular Volume 80 fL (80-100); Mean Platelet Volume 10.8 fL (9.1-12.4); NEUTROPHILS ABSOLUTE AUTO 2.87 K/mm3 (1.96-9.15); NEUTROPHILS PERCENT AUTO 77 % (41-73); Platelet Count 66 K/mm3 (150-400); RDW Coefficient Variation 19.8 % (11.7-14.2); RDW Standard Deviation 57.4 fL (35.1-46.3); Red Blood Cell Count 3.59 M/mm3 (4.30-5.90); White Blood Cell Count 3.72 K/mm3 (4.00-11.30)
[2020-07-21 05:16] LABS: Albumin, Blood 2.5 g/dL (3.4-5.0); Albumin/Globulin Ratio 0.8 (0.8-1.8); Bun/Creatinine Ratio 25.1 (12.0-20.0); Calcium, Blood 7.7 mg/dL (8.5-10.1); Creatinine, Blood 1.71 mg/dL (0.60-1.20); Globulin, Blood 3.3 g/dL (2.2-4.0); Potassium, Blood 4.5 mmol/L (3.5-5.5); Total Protein, Blood 5.8 g/dL (6.4-8.2)
--- NOTE | 2020-07-21 06:38 | NUR ---
SHIFT SUMMARY PT WENT FOR CT AT START OF SHIFT. WHEN RETURNED HAD COMPLAINTS OF NAUSEA, THIS CLEARED UP AFTER PT WAS RESTING IN BED. PT STATED ABD BEING MORE DISTENDED AND TENDER THAN PREVIOUS PM SHIFT. PT FELT LIKE HAVING A BM, WAS ON BED MCARTHUR AND ONLY HAD AN OUTPUT OF TWO SMALL LOOSE DROPS, <5ML. COLOR WAS BROWN AND BLOOD-TINGED. VITALS STABLE. HGB DOWN FROM PREVIOUS DAY TO 8.0. PT STATES BEING COMFORTABLE AND FEELING BETTER.
[2020-07-21 13:11] LABS: Hematocrit 30.2 % (37.0-53.0); Hemoglobin 8.4 g/dL (13.5-17.5)
--- NOTE | 2020-07-21 15:52 | NUR ---
PT TO TRANSFER TO ROOM 303, REPORT GIVEN TO MIRLANDE HERMAN. NO ACUTE CHANGE FOR THE SHIFT, PT DID HAVE A MAROON COLORED FORMED STOOL THIS AM FOLLOWED BY YELLOW BROWN LOOSE BM. HGB RECHECKED AT 12 AND IS AT 8.4, NO OTHER SOURCE OF BLEEDING REPORTED. VITALS HAS BEEN STBALE, PT REMAINS ON CLEAR LIQUID DIET. WILL RE-ATTEMPT EGD TOMORROW PER DR CASTILLO. TIM AT BEDSIDE TO VISIT. ALERT AND ORIENTED DENIES ANY CHEST PAIN/PRESSURE. USES URINAL AND BSC FOR TOILETING, RBKA AMBULATES WITH R LEG PROSTHESIS AND A WALKER. NO OTHER ISSUES REPORTED, WILL SEND ALL BELONGINGS WITH PT, WILL TRANSFER VIA BED
--- NOTE | 2020-07-21 18:23 | NUR ---
SHIFT SUMMARY 1700 RECEIVED PT TO RM 303 FROM PCU 10. SLIDE TX TO BED D/T R BKA. PT ADMITTED FOR UGIB. REPORTING VOMITING BLOOD AND BLACK STOOL ON THE . HX OF LIVER CA WITH LAST CHEMO 8 MONTHS AGO; PER REPORT PT IN REMISSION. HX OF HEP C, DM, ESPHOGEAL VARICES, ASCITES, AND NEUROPATHY. PER REPORT, DR CASTILLO ATTEMPTED EGD ON BUT UNSUCCESSFUL D/T DELAYED DIGESTION. CT OF ABD DONE SHOWING BLOCKAGE. PT HAS REMAINED ON CL AND REATTEMPT OF EGD TO BE DONE TOMORROW. PER REPORT, PT RECEIVED 2U PRBC'S IN PCU ON DAY OF ADMIT. H/H STABLE AT THIS TIME; SEE CHART. PT HAS BEEN PLEASANT AND CO-OP. ABLE TO MAKE NEEDS KNOWN. TO BE NPO AT 0700 IN AM FOR REPEAT EGD. CALL LT IN REACH.
[2020-07-22 04:33] LABS: Hemoglobin 8.4 g/dL (13.5-17.5); Mean Corpuscular HGB 22.3 pg (26.0-34.0); Mean Corpuscular Volume 80 fL (80-100); Platelet Count 67 K/mm3 (150-400); RDW Standard Deviation 57.8 fL (35.1-46.3); Red Blood Cell Count 3.76 M/mm3 (4.30-5.90); White Blood Cell Count 3.42 K/mm3 (4.00-11.30)
[2020-07-22 04:52] LABS: Bun/Creatinine Ratio 20.1 (12.0-20.0); Calcium, Blood 7.7 mg/dL (8.5-10.1); Creatinine, Blood 1.44 mg/dL (0.60-1.20); Potassium, Blood 4.1 mmol/L (3.5-5.5)
--- NOTE | 2020-07-22 05:24 | NUR ---
SHIFT SUMMARY AOX4. VSS. DENIES PAIN, N/V OR DYSPNEA. HAD 1 PARTIAL FORMED/UNFORMED KARMA COLORED BM THIS SHIFT. HYPOACTIVE BT. REPORTS PASSING GAS. ABD VERY DISTENDED, FIRM & PT STATES HE FEELS "BLOATED & TIGHT". PLAN IS TO HAVE EGD TODAY & PER REPORT PT IS NPO @0700 THIS AM, HOWEVER PT HAS HAD NOTHING TO EAT OR DRINK EXCEPT ICE WATER T/O NIGHT. CALL LIGHT IN REACH & PT ABLE TO MAKE NEEDS KNOWN. WILL MONITOR UNTIL DAY NURSE ASSUMES CARE.
--- NOTE | 2020-07-22 16:23 | NUR ---
07/22/20 1622 Johnna Storm History, Chart, Medications and Allergies reviewed before start of procedure. 3-LEAD EKG REVIEWED WITH PHYSICIAN PRIOR TO START OF PROCEDURE. MONITOR INTACT WITH CONTINUOUS PULSE OXIMETRY AND INTERMITTENT BP. See Anesthesia record.
--- NOTE | 2020-07-22 16:29 | NUR ---
PT TRANSFERED TO [facility] VIA GURNY FROM FLOOR. History, Chart, Medications and Allergies reviewed before start of procedure. Lungs clear T/O to Auscultation. Patient confirms NPO status and agrees with scheduled surgery. Pre-Op teaching done. Pt verbalizes understanding.
--- NOTE | 2020-07-22 16:38 | NUR ---
SHIFT SUMMARY PT HAS HAD MULTIPLE LOOSE KARMA/BROWN STOOLS TODAY. MOSTLY CONTINENT IN THE BEDPAN. PT STATES HE HAS ONLY HAD LIQUIDS FROM APPROX A WEEK. NPO AFTER LUNCH TODAY FOR UPPER ENDO TODAY. PT CURRENTLY AT DAY SURGERY FOR ENDOSCOPY. VS REVIEWED PRIOR TO LEAVING UNIT & STABLE. NO ACUTE CHANGES IN ASSESSMENT PRIOR TO GOING TO DAY SURGERY. FAMLIY IN ROOM & AWARE OF PLANNED PROCEDURE.
[2020-07-23 04:57] LABS: Hematocrit 29.9 % (37.0-53.0); Hemoglobin 8.5 g/dL (13.5-17.5); Mean Corpuscular HGB 22.4 pg (26.0-34.0); Mean Corpuscular HGB Conc 28.4 g/dL (31.5-36.5); Mean Corpuscular Volume 79 fL (80-100); Platelet Count 62 K/mm3 (150-400); RDW Coefficient Variation 19.9 % (11.7-14.2); RDW Standard Deviation 56.3 fL (35.1-46.3); Red Blood Cell Count 3.79 M/mm3 (4.30-5.90); White Blood Cell Count 3.38 K/mm3 (4.00-11.30)
--- NOTE | 2020-07-23 04:59 | NUR ---
SHIFT SUMMARY NO ACUTE CHANGES THIS SHIFT. AOX4. VSS. DENIES PAIN, N/V OR DYSPNEA. HAD 3 KARMA/BROWN BM THIS SHIFT. ABD VERY TIGHT, FIRM, DISTENDED, PT REPORTS ABD UNCOMFORTABLE. HYPERACTIVE BT. HAD EGD 07/22/20. PLAN TO POSSIBLY DC TODAY. SBY ASSIST TO BSC. CALL LIGHT IN REACH & PT ABLE TO MAKE NEEDS KNOWN. WILL MONITOR.
[2020-07-23 05:14] LABS: Bun/Creatinine Ratio 18.2 (12.0-20.0); Calcium, Blood 7.7 mg/dL (8.5-10.1); Creatinine, Blood 1.32 mg/dL (0.60-1.20)
[2020-07-23] MEDS ORDERED: PREGABALIN75 MG PO (09:18)
--- NOTE | 2020-07-23 09:38 | NUR ---
PT TO IMAGING FOR PARACENTESIS.
--- NOTE | 2020-07-23 10:26 | NUR ---
PT BACK FROM PARACENTESIS, PER U/S TECH 4L REMOVED. DR SANTIAGO NOTIFIED AND WILL PLACE ORDERS FOR ALBUMIN.
[2020-07-23 10:35] LABS: Automated BF WBC Count 0.178 K/mm3 (0-999); Body Fluid WBC Count 178 /mm3 (0-999)
[2020-07-23] MEDS ORDERED: Cefdinir300 MG PO (11:14)
[2020-07-23] MEDS ORDERED: PANT40 PO (11:15)
[2020-07-23 11:47] LABS: RBC Count, Body Fluid 527 /mm3 (0-0)
[2020-07-23 11:50] LABS: Total Cell Count, Body Fluid 100
[2020-07-23 11:51] LABS: Appearance, Body Fluid Hazy (Clear); Color, Body Fluid L Yellow (None-Yellow)
--- NOTE | 2020-07-23 12:30 | NUR ---
DISCHARGE INSTRUCTIONS REVIEWED WITH PT. IV DC'D INTACT. RX FAXED TO [facility]. PARACENTESIS COMPLETED WITH APROX 4L OFF, 25GM ALBUMIN GIVEN PRIOR TO DISCHARGE. FOLLOE UP APPT MADE WITH PCP AND DR CASTILLO OFFICE TO CALL PT WITH APPT. PT DC'D AT 1210, ESCORTED OUT VIA W/C TO D/C HOME WITH SPOUSE.
== END 2020-07-23 12:11 | disposition home or self-care (01) | DRG 442 ==
LOC: ER 16:54 → MEDS 23:33 → PCU 23:33 → MEDS 07-21 17:02 → PCU 07-21 17:02 → MEDS 07-23 12:11
PROVIDERS: Emergency Medicine; Internal Medicine; Internal Medicine Gastroenterology; Physician Assistant; ADMIT Internal Medicine
PROC: 30233N1 Transfusion of Nonautologous Red Blood Cells into Peripheral Vein, Percutaneous Approach (ICD-10-PCS; 2020-07-19)
PROC: 0DJ08ZZ Inspection of Upper Intestinal Tract, Via Natural or Artificial Opening Endoscopic (ICD-10-PCS; principal; 2020-07-19 19:00)
DX: K76.6 Portal hypertension (principal); K92.2 Gastrointestinal hemorrhage, unspecified; D62 Acute posthemorrhagic anemia; C22.9 Malignant neoplasm of liver, not specified as primary or secondary; M86.9 Osteomyelitis, unspecified; K31.89 Other diseases of stomach and duodenum; E11.22 Type 2 diabetes mellitus with diabetic chronic kidney disease; N18.31 Chronic kidney disease, stage 3a; Z79.4 Long term (current) use of insulin; B18.2 Chronic viral hepatitis C; K70.31 Alcoholic cirrhosis of liver with ascites; I12.9 Hypertensive chronic kidney disease with stage 1 through stage 4 chronic kidney disease, or unspecified chronic kidney disease; E11.69 Type 2 diabetes mellitus with other specified complication; F32.9 Major depressive disorder, single episode, unspecified; Z89.511 Acquired absence of right leg below knee; E88.09 Other disorders of plasma-protein metabolism, not elsewhere classified
CPT/HCPCS: 0241U; 36415; 36430; 49083; 74176; 76705; 80048; 80053; 82947; 83690; 83735; 85014; 85018; 85025; 85027; 85610; 85730; 86850; 86900; 86901; 86923; 87070; 87205; 89051; 93975; 94640; 94760; 94762; 96365; 96375; 99285-25; A9270; C9113; J0696; J2001; J2250; J2354; J2704; J7030; J7050; P9016; P9046

== ENCOUNTER → 2020-08-20 | Outpatient (CLI) | payer MEDICARE ==
[~2020-08-20] MED LIST changes: +ALBU90OI INH; +ANORO ELLIPTA1 EAC1 INH; +BASAGLAR K100 UNIT/1 SC; +Cefdinir300 MG PO; +FLUOXETINE HCL60 MG PO; +FUROSEMIDE40 MG PO; +HUMALOG100 UNIT/1 SC; +Hydroxyzine HCl25 MG PO; +INSULANI SC; +Inderal40 MG PO; +MIRT30 PO; +OMEP20ER PO; +ONDA4ODT MM; +PANT40 PO; +PREGABALIN75 MG PO; +REMERON30 MG PO; +SPIR25 PO; +SPIRIVA RESPIMAT4 G3; +SPIRIVA RESPIMAT4 G3 INH; +SPIRONOLACTONE25 MG PO; +SUCR1 PO; +TAMSULOSIN HCL0.4 M1 PO; +TRELEGY ELLIPT1 EACH INH; +Ventolin/Prove6.7 GM INH
== END | disposition home or self-care (01) ==
LOC: LAB SHORT 17:56 → LAB 17:56
DX: L89.899 Pressure ulcer of other site, unspecified stage (principal)
CPT/HCPCS: 87070; 87075; 87077; 87186; 87205

== ENCOUNTER 2020-09-05 12:31 | Emergency (ER) | payer MEDICARE, SELFPAY ==
[~2020-09-05] VITALS: Ht 185.4 cm; Wt 111.1 kg
[~2020-09-05 12:31] MED LIST changes: -ALBU90OI INH; -FUROSEMIDE40 MG PO; -HUMALOG100 UNIT/1 SC; -Hydroxyzine HCl25 MG PO; -INSULANI SC; -MIRT30 PO; -ONDA4ODT MM; -SPIRIVA RESPIMAT4 G3; -SPIRONOLACTONE25 MG PO; -TRELEGY ELLIPT1 EACH INH
[2020-09-05 13:07] LABS: BASOPHILS ABSOLUTE AUTO 0.04 K/mm3 (0.00-0.23); BASOPHILS PERCENT AUTO 1 % (0-2); EOSINOPHILS ABSOLUTE AUTO 0.14 K/mm3 (0.00-0.68); EOSINOPHILS PERCENT AUTO 3 % (0-6); Hematocrit 31.7 % (37.0-53.0); Hemoglobin 8.9 g/dL (13.5-17.5); IMMATURE GRAN ABSOLUTE AUTO 0.07 K/mm3 (0.00-0.10); IMMATURE GRAN PERCENT AUTO 2 % (0-1); LYMPHOCYTES ABSOLUTE AUTO 0.44 K/mm3 (0.84-5.20); LYMPHOCYTES PERCENT AUTO 9 % (21-46); MONOCYTES ABSOLUTE AUTO 0.45 K/mm3 (0.16-1.47); MONOCYTES PERCENT AUTO 10 % (4-13); Mean Corpuscular HGB 21.7 pg (26.0-34.0); Mean Corpuscular HGB Conc 28.1 g/dL (31.5-36.5); Mean Corpuscular Volume 77 fL (80-100); NEUTROPHILS ABSOLUTE AUTO 3.57 K/mm3 (1.96-9.15); NEUTROPHILS PERCENT AUTO 76 % (41-73); Platelet Count 94 K/mm3 (150-400); RDW Coefficient Variation 19.2 % (11.7-14.2); RDW Standard Deviation 53.6 fL (35.1-46.3); Red Blood Cell Count 4.11 M/mm3 (4.30-5.90); White Blood Cell Count 4.71 K/mm3 (4.00-11.30)
[2020-09-05 13:26] LABS: Albumin, Blood 2.4 g/dL (3.4-5.0); Albumin/Globulin Ratio 0.5 (0.8-1.8); Bilirubin, Total 0.6 mg/dL (0.1-1.0); Bun/Creatinine Ratio 32.1 (12.0-20.0); Creatinine, Blood 1.56 mg/dL (0.60-1.20); Globulin, Blood 4.5 g/dL (2.2-4.0); Potassium, Blood 4.1 mmol/L (3.5-5.5); Total Protein, Blood 6.9 g/dL (6.4-8.2); Troponin I 0.018 ng/mL (0.000-0.040)
[2020-09-05 15:48] LABS: International Normalized Ratio 1.12; Prothrombin Time Results 11.9 Sec (9.7-11.5)
[2020-09-05 16:02] LABS: Influenza A, PCR NEGATIVE (NEGATIVE); Influenza B, PCR NEGATIVE (NEGATIVE); Resp Syncytial Virus, PCR NEGATIVE (NEGATIVE); SARS-Cov-2 (COVID-19) PCR, MMC NEGATIVE (NEGATIVE)
== END 2020-09-05 15:54 | disposition home or self-care (01) ==
LOC: ER 12:31
PROVIDERS: Emergency Medicine; Physician Assistant
DX: R18.8 Other ascites (principal); E11.9 Type 2 diabetes mellitus without complications; I10 Essential (primary) hypertension; Z87.891 Personal history of nicotine dependence; Z20.822 Contact with and (suspected) exposure to COVID-19
CPT/HCPCS: 0241U; 36415; 71046; 76705; 80053; 83880; 84484; 85025; 85610; 93005; 93010; 99284-25

== ENCOUNTER 2020-12-29 14:02 | Observation (INO) | payer MEDICARE, OTHER ==
[~2020-12-29] VITALS: Ht 188 cm; Wt 105.7 kg
[2020-12-29] MEDS ORDERED: SPIRIVA RESPIMAT4 G3 (18:17)
[2020-12-29] MEDS ORDERED: HUMALOG100 UNIT/1 SC (18:21)
[2020-12-29] MEDS ORDERED: INSULANI SC (18:21)
[2020-12-29] MEDS ORDERED: MIRT30 PO (18:23)
[2020-12-29] MEDS ORDERED: HYDHCL25 PO (18:23)
[2020-12-29] MEDS ORDERED: SUCR1 PO (18:26)
[2020-12-29] MEDS ORDERED: TRELEGY ELLIPT1 EACH INH (18:28)
[2020-12-29] MEDS ORDERED: OMEP20ER PO (18:29)
[2020-12-29] MEDS ORDERED: FUROSEMIDE40 MG PO (18:29)
[2020-12-29] MEDS ORDERED: Inderal40 MG PO (18:31)
[2020-12-29] MEDS ORDERED: Hydroxyzine HCl25 MG PO (18:31)
[2020-12-29] MEDS ORDERED: SPIRONOLACTONE25 MG PO (18:32)
--- NOTE | 2020-12-29 21:46 | NUR ---
ADMIT ARRIVED VIA STRETCHER @2120, ADMITTED FOR SEVERE ANEMIA, 1ST UNIT PRBC FINISHED UPON ARRIVAL, CURRENTLY FLUSHING NS. ORIENTED TO RM & CALL LIGHT.
[2020-12-30 02:05] LABS: BASOPHILS ABSOLUTE AUTO 0.04 K/mm3 (0.00-0.23); BASOPHILS PERCENT AUTO 1 % (0-2); EOSINOPHILS ABSOLUTE AUTO 0.17 K/mm3 (0.00-0.68); EOSINOPHILS PERCENT AUTO 3 % (0-6); Hematocrit 25.9 % (37.0-53.0); Hemoglobin 7.2 g/dL (13.5-17.5); IMMATURE GRAN ABSOLUTE AUTO 0.06 K/mm3 (0.00-0.10); IMMATURE GRAN PERCENT AUTO 1 % (0-1); LYMPHOCYTES ABSOLUTE AUTO 0.62 K/mm3 (0.84-5.20); LYMPHOCYTES PERCENT AUTO 12 % (21-46); MONOCYTES ABSOLUTE AUTO 0.41 K/mm3 (0.16-1.47); MONOCYTES PERCENT AUTO 8 % (4-13); Mean Corpuscular HGB 18.8 pg (26.0-34.0); Mean Corpuscular HGB Conc 27.8 g/dL (31.5-36.5); Mean Corpuscular Volume 68 fL (80-100); NEUTROPHILS ABSOLUTE AUTO 3.84 K/mm3 (1.96-9.15); NEUTROPHILS PERCENT AUTO 75 % (41-73); Platelet Count 102 K/mm3 (150-400); RDW Coefficient Variation 23.2 % (11.7-14.2); RDW Standard Deviation 55.9 fL (35.1-46.3); Red Blood Cell Count 3.83 M/mm3 (4.30-5.90); White Blood Cell Count 5.14 K/mm3 (4.00-11.30)
[2020-12-30 02:23] LABS: Albumin, Blood 2.3 g/dL (3.4-5.0); Albumin/Globulin Ratio 0.6 (0.8-1.8); Bilirubin, Total 1.6 mg/dL (0.1-1.0); Bun/Creatinine Ratio 24.6 (12.0-20.0); Calcium, Blood 7.6 mg/dL (8.5-10.1); Creatinine, Blood 1.87 mg/dL (0.60-1.20); Globulin, Blood 3.7 g/dL (2.2-4.0); Potassium, Blood 4.4 mmol/L (3.5-5.5); Troponin I 0.052 ng/mL (0.000-0.040)
--- NOTE | 2020-12-30 05:46 | NUR ---
SHIFT SUMMARY AOX4. SLOW TO RESPOND. REPORTS NEW FATIGUE, WEAKNESS, DIZZINESS OVER PAST FEW DAYS. STATES HE'S BEEN SLEEPING ALOT. HAS R BKA. CHRONIC NEUROPATHY. DX c ANEMIA THIS ADMIT, RECIEVED 2U PRBC. VSS. TELE NSR @73. REPORTS 2/10 CRAMPING ABD PAIN, LACK OF APPETITE & NAUSEA OVER PAST DAY, NO EMESIS. REPORTS HAVING "BLACK STOOLS" HOWEVER STATES TAKES IRON, NO SIGNS OF BLEEDING THIS SHIFT. ABD DISTENDED MORE THEN USUAL PER PT. HYPOACTIVE BT. HAS OCCASIONAL SOB c MINIMAL EXERTION. SPO2 >90% ON RA. LUNGS DIM BASES. CALL LIGHT IN REACH, PT ABLE TO MAKE NEEDS KNOWN. WCTM.
[2020-12-30 10:06] LABS: Troponin I 0.052 ng/mL (0.000-0.040)
[2020-12-30 10:10] LABS: Hemoglobin 7.2 g/dL (13.5-17.5); Mean Corpuscular HGB 18.7 pg (26.0-34.0); Mean Corpuscular HGB Conc 27.7 g/dL (31.5-36.5); Mean Corpuscular Volume 67 fL (80-100); NRBC ABSOLUTE 0.02 K/mm3 (0.00-0.02); NRBC Auto 0.4 /100 WBC (0.0-0.2); Platelet Count 102 K/mm3 (150-400); RDW Coefficient Variation 22.7 % (11.7-14.2); RDW Standard Deviation 54.6 fL (35.1-46.3); Red Blood Cell Count 3.86 M/mm3 (4.30-5.90); White Blood Cell Count 5.47 K/mm3 (4.00-11.30)
[2020-12-30 13:19] LABS: Hematocrit 29.1 % (37.0-53.0); Hemoglobin 7.9 g/dL (13.5-17.5)
[2020-12-30 13:45] LABS: Stool Occult Blood Guaiac 1 Neg (Neg)
[2020-12-30 15:39] LABS: Hematocrit 28.3 % (37.0-53.0); Hemoglobin 7.7 g/dL (13.5-17.5); Mean Corpuscular HGB 18.6 pg (26.0-34.0); Mean Corpuscular HGB Conc 27.2 g/dL (31.5-36.5); Mean Corpuscular Volume 68 fL (80-100); NRBC ABSOLUTE 0.03 K/mm3 (0.00-0.02); NRBC Auto 0.5 /100 WBC (0.0-0.2); Platelet Count 113 K/mm3 (150-400); RDW Coefficient Variation 22.9 % (11.7-14.2); RDW Standard Deviation 55.8 fL (35.1-46.3); Red Blood Cell Count 4.15 M/mm3 (4.30-5.90); White Blood Cell Count 5.98 K/mm3 (4.00-11.30)
[2020-12-30] MEDS ORDERED: ALBU90OI INH (16:36)
[2020-12-30] MEDS ORDERED: ONDA4ODT MM (16:37)
--- NOTE | 2020-12-30 18:03 | NUR ---
PT DISCHARGED FROM THE UNIT. IVS REMOVED. DISCHARGE INSTRUCTIONS REVIEWED. MEDICATIONS FAXED. PT LEFT UNIT VIA WHEEL CHAIR. WILL DRIVE HOME
== END 2020-12-30 17:51 | disposition home or self-care (01) ==
LOC: ER 14:02 → ERHOLD 14:03 → MEDS 14:03
PROVIDERS: Family Medicine; ADMIT Internal Medicine
DX: E11.22 Type 2 diabetes mellitus with diabetic chronic kidney disease (principal); I12.9 Hypertensive chronic kidney disease with stage 1 through stage 4 chronic kidney disease, or unspecified chronic kidney disease; N18.31 Chronic kidney disease, stage 3a; D63.1 Anemia in chronic kidney disease; E11.65 Type 2 diabetes mellitus with hyperglycemia; K70.30 Alcoholic cirrhosis of liver without ascites; B18.2 Chronic viral hepatitis C; R79.89 Other specified abnormal findings of blood chemistry; K76.6 Portal hypertension; K31.89 Other diseases of stomach and duodenum; K21.9 Gastro-esophageal reflux disease without esophagitis; F32.9 Major depressive disorder, single episode, unspecified; Z89.511 Acquired absence of right leg below knee; Z87.891 Personal history of nicotine dependence; Z79.4 Long term (current) use of insulin; Z85.05 Personal history of malignant neoplasm of liver; Z88.8 Allergy status to other drugs, medicaments and biological substances; Z85.118 Personal history of other malignant neoplasm of bronchus and lung
CPT/HCPCS: 36415; 36430; 80053; 80069; 82272; 82550; 82947; 84484; 85014; 85018; 85025; 85027; 86850; 86900; 86901; 86923; 93005; 93010; 94640; 94760; 96365; 96366; 96375; 96376; 99285-25; A9270; C9113; G0378; J2354; J2405; J7030; J7050; P9016

== ENCOUNTER 2021-02-09 00:23 | Day surgery (SDC) | payer MEDICARE ==
[~2021-02-09 00:23] MED LIST changes: +ALBU90OI INH; +FUROSEMIDE40 MG PO; +HUMALOG100 UNIT/1 SC; +Hydroxyzine HCl25 MG PO; +INSULANI SC; +MIRT30 PO; +ONDA4ODT MM; +SPIRIVA RESPIMAT4 G3; +SPIRONOLACTONE25 MG PO; +TRELEGY ELLIPT1 EACH INH
== END 2021-02-09 15:52 | disposition home or self-care (01) ==
LOC: ATC 00:23
DX: D50.9 Iron deficiency anemia, unspecified (principal); E11.22 Type 2 diabetes mellitus with diabetic chronic kidney disease; N18.30 Chronic kidney disease, stage 3 unspecified; K70.31 Alcoholic cirrhosis of liver with ascites; F10.11 Alcohol abuse, in remission; J98.4 Other disorders of lung
CPT/HCPCS: 96365; J2916

== ENCOUNTER 2021-02-10 01:34 | Day surgery (SDC) | payer MEDICARE | END 2021-02-10 15:09 | disposition home or self-care (01) | LOC: ATC 01:34 | DX: D50.9 Iron deficiency anemia, unspecified (principal); E11.22 Type 2 diabetes mellitus with diabetic chronic kidney disease; N18.30 Chronic kidney disease, stage 3 unspecified; K70.31 Alcoholic cirrhosis of liver with ascites; F10.11 Alcohol abuse, in remission; J98.4 Other disorders of lung; Z79.4 Long term (current) use of insulin; Z88.8 Allergy status to other drugs, medicaments and biological substances | CPT/HCPCS: 96365; J2916 ==

== ENCOUNTER 2021-02-11 01:46 | Day surgery (SDC) | payer MEDICARE | END 2021-02-11 15:16 | disposition home or self-care (01) | LOC: ATC 01:46 | DX: D50.9 Iron deficiency anemia, unspecified (principal); E11.22 Type 2 diabetes mellitus with diabetic chronic kidney disease; N18.30 Chronic kidney disease, stage 3 unspecified; K70.31 Alcoholic cirrhosis of liver with ascites; F10.11 Alcohol abuse, in remission; J98.4 Other disorders of lung; L29.8 Other pruritus; Z79.4 Long term (current) use of insulin | CPT/HCPCS: 96365; J2916 ==

== ENCOUNTER 2021-02-12 07:28 | Day surgery (SDC) | payer MEDICARE | END 2021-02-12 14:50 | disposition home or self-care (01) | LOC: ATC 07:28 | DX: D50.9 Iron deficiency anemia, unspecified (principal); E11.22 Type 2 diabetes mellitus with diabetic chronic kidney disease; N18.30 Chronic kidney disease, stage 3 unspecified; K70.31 Alcoholic cirrhosis of liver with ascites; F10.11 Alcohol abuse, in remission; J98.4 Other disorders of lung; L29.8 Other pruritus; Z79.4 Long term (current) use of insulin; Z88.8 Allergy status to other drugs, medicaments and biological substances | CPT/HCPCS: 96365; J2916 ==

== ENCOUNTER 2021-02-13 01:02 | Day surgery (SDC) | payer MEDICARE | END 2021-02-13 15:00 | disposition home or self-care (01) | LOC: ATC 01:02 | DX: D50.9 Iron deficiency anemia, unspecified (principal); N18.30 Chronic kidney disease, stage 3 unspecified; E11.22 Type 2 diabetes mellitus with diabetic chronic kidney disease; K70.31 Alcoholic cirrhosis of liver with ascites; F10.11 Alcohol abuse, in remission; J98.4 Other disorders of lung | CPT/HCPCS: 96365; J2916 ==

== ENCOUNTER 2021-07-13 15:56 | Inpatient (IN) | payer MEDICARE ==
[~2021-07-13] VITALS: Ht 185.4 cm; Wt 106.6 kg
[~2021-07-13 15:56] MED LIST changes: +ALDACTONE25 MG PO; +FERSU300 PO; +FLONASE ALLERG9.9 M2; +HUMULIN R100 UNIT/2; +MULTIPLE VITAM1 EACH PO; +Milk Thistle175 M1 PO; +ONDA4 PO; +PREG75 PO; +VITAMIN D325 MC3 PO
[2021-07-13 17:31] LABS: BASOPHILS ABSOLUTE AUTO 0.04 K/mm3 (0.00-0.23); BASOPHILS PERCENT AUTO 1 % (0-2); EOSINOPHILS ABSOLUTE AUTO 0.11 K/mm3 (0.00-0.68); EOSINOPHILS PERCENT AUTO 2 % (0-6); Hematocrit 19.9 % (37.0-53.0); IMMATURE GRAN ABSOLUTE AUTO 0.06 K/mm3 (0.00-0.10); IMMATURE GRAN PERCENT AUTO 1 % (0-1); LYMPHOCYTES ABSOLUTE AUTO 0.43 K/mm3 (0.84-5.20); LYMPHOCYTES PERCENT AUTO 6 % (21-46); MONOCYTES ABSOLUTE AUTO 0.55 K/mm3 (0.16-1.47); MONOCYTES PERCENT AUTO 8 % (4-13); Mean Corpuscular HGB 17.8 pg (26.0-34.0); Mean Corpuscular HGB Conc 26.6 g/dL (31.5-36.5); Mean Corpuscular Volume 67 fL (80-100); NEUTROPHILS ABSOLUTE AUTO 6.17 K/mm3 (1.96-9.15); NEUTROPHILS PERCENT AUTO 84 % (41-73); NRBC ABSOLUTE 0.03 K/mm3 (0.00-0.02); NRBC Auto 0.4 /100 WBC (0.0-0.2); Platelet Count 163 K/mm3 (150-400); RDW Coefficient Variation 19.6 % (11.7-14.2); RDW Standard Deviation 47.1 fL (35.1-46.3); Red Blood Cell Count 2.97 M/mm3 (4.30-5.90); White Blood Cell Count 7.36 K/mm3 (4.00-11.30)
[2021-07-13 17:39] LABS: Hemoglobin 5.3 g/dL (13.5-17.5)
[2021-07-13 17:46] LABS: International Normalized Ratio 1.14; Prothrombin Time Results 11.9 Sec (9.7-11.5)
[2021-07-13 17:58] LABS: Albumin/Globulin Ratio 0.5 (0.8-1.8); Bilirubin, Total 0.6 mg/dL (0.1-1.0); Bun/Creatinine Ratio 32.3 (12.0-20.0); Calcium, Blood 7.6 mg/dL (8.5-10.1); Creatinine, Blood 2.54 mg/dL (0.60-1.20); Globulin, Blood 3.7 g/dL (2.2-4.0); Total Protein, Blood 5.7 g/dL (6.4-8.2)
[2021-07-13 19:47] LABS: Percent Saturation 4.7 % (20.0-50.0)
[2021-07-13 20:08] LABS: Influenza A, PCR NEGATIVE (NEGATIVE); Influenza B, PCR NEGATIVE (NEGATIVE); Resp Syncytial Virus, PCR NEGATIVE (NEGATIVE); SARS-Cov-2 (COVID-19) PCR, MMC NEGATIVE (NEGATIVE)
[2021-07-14] MEDS ORDERED: Prozac40 MG PO (01:22)
[2021-07-14 02:52] LABS: BASOPHILS ABSOLUTE AUTO 0.03 K/mm3 (0.00-0.23); BASOPHILS PERCENT AUTO 1 % (0-2); EOSINOPHILS PERCENT AUTO 2 % (0-6); Hematocrit 23.2 % (37.0-53.0); Hemoglobin 6.6 g/dL (13.5-17.5); IMMATURE GRAN ABSOLUTE AUTO 0.08 K/mm3 (0.00-0.10); IMMATURE GRAN PERCENT AUTO 1 % (0-1); LYMPHOCYTES ABSOLUTE AUTO 0.47 K/mm3 (0.84-5.20); LYMPHOCYTES PERCENT AUTO 8 % (21-46); MONOCYTES ABSOLUTE AUTO 0.49 K/mm3 (0.16-1.47); MONOCYTES PERCENT AUTO 8 % (4-13); Mean Corpuscular HGB 20.3 pg (26.0-34.0); Mean Corpuscular HGB Conc 28.4 g/dL (31.5-36.5); Mean Corpuscular Volume 71 fL (80-100); Mean Platelet Volume 11.2 fL (9.1-12.4); NEUTROPHILS ABSOLUTE AUTO 4.77 K/mm3 (1.96-9.15); NEUTROPHILS PERCENT AUTO 80 % (41-73); NRBC ABSOLUTE 0.05 K/mm3 (0.00-0.02); NRBC Auto 0.8 /100 WBC (0.0-0.2); Platelet Count 133 K/mm3 (150-400); RDW Coefficient Variation 22.3 % (11.7-14.2); Red Blood Cell Count 3.25 M/mm3 (4.30-5.90); White Blood Cell Count 5.94 K/mm3 (4.00-11.30)
[2021-07-14 03:06] LABS: Bun/Creatinine Ratio 33.7 (12.0-20.0); Calcium, Blood 7.7 mg/dL (8.5-10.1); Creatinine, Blood 2.52 mg/dL (0.60-1.20); Magnesium, Blood 2.5 mg/dL (1.6-2.4); Potassium, Blood 4.9 mmol/L (3.5-5.5)
[2021-07-14 04:01] LABS: Source, Urine Clean Catch
[2021-07-14 04:10] LABS: Bilirubin, Urine Neg (Neg); Blood, Urine 2+ (Neg); Glucose Qualitative, Urine Neg (Neg); Ketones, Urine Neg (Neg); Leukocyte Esterase, Urine 3+ (Neg); Nitrite, Urine Neg (Neg); Protein, Urine 2+ (Neg); Urobilinogen, Urine NORM (Normal)
[2021-07-14 04:32] LABS: Appearance, Urine Cloudy (Clear); Color, Urine Yellow (P-Yellow)
[2021-07-14 04:33] LABS: Bacteria Many /hpf; Red Blood Cells, Urine 0-2 /hpf (0-2); Squamous Epithelial Cells Rare /hpf (Few); White Blood Cells, Urine TNTC /hpf (0-5)
--- NOTE | 2021-07-14 06:19 | NUR ---
SHIFT SUMMARY PATIENT ADMITTED TO FLOOR AT APPROXIMETLY 0045 AND FOUND TO BE A PLESANT MAN WHO IS A&OX4 WITH A RIGHT BKA. GEN WEAKNESS NOTED. STATES HES FEELING MUCH BETTER AFTER BLOOD AND 2ND UNIT IS FINISHING UPON ARRIVAL. RECHECK OF HGB WAS 6.6 AND 1 MORE UNIT ORDERED AND INFUSING. VSS. ON HOME DOSE OF 2L NC SATING HIGH 90'S. NSR ON THE MONITOR. NPO EXCEPT FOR A FEW ICE CHIPS IN CASE GI NEEDS TO INTERVENE TODAY. ONE EPISODE OF VOMITING WITH NO BLOOD SEEN. STOMACH SEVERELY DISTENDED AND PATIENT OBVIOUSLY UNCOMFORTABLE WITH ANY MOVEMENT. BREATHING WITH BELLY. NO BM THIS SHIFT BUT ATTEMPTED X2 ON BED MCARTHUR. PROTONIX AND SANDOSTATIN RUNNING PER ORDER. VOIDING WELL PER URINAL. NO ACUTE CONCERNS AT THIS TIME. WILL CONTINUE PLAN OF CARE UNTIL REPORT GIVEN TO ZACHERY HERMAN.
[2021-07-14 09:47] LABS: Automated BF WBC Count 0.346 K/mm3 (0-999); Body Fluid WBC Count 346 /mm3 (0-999)
[2021-07-14 10:04] LABS: Albumin, Body Fluid 0.2 g/dL
[2021-07-14 10:12] LABS: Glucose, Body Fluid 191 mg/dL
[2021-07-14 10:14] LABS: Hematocrit 24.7 % (37.0-53.0); Hemoglobin 7.4 g/dL (13.5-17.5)
[2021-07-14 11:21] LABS: Appearance, Body Fluid Hazy (Clear); Color, Body Fluid L Yellow (None-Yellow)
[2021-07-14 11:23] LABS: RBC Count, Body Fluid 548 /mm3 (0-0)
[2021-07-14 12:11] LABS: Total Cell Count, Body Fluid 100
[2021-07-14 14:06] LABS: Hematocrit 24.3 % (37.0-53.0)
[2021-07-14 17:37] LABS: Hematocrit 24.4 % (37.0-53.0); Hemoglobin 7.2 g/dL (13.5-17.5)
--- NOTE | 2021-07-14 18:20 | NUR ---
SHIFT SUMMARY PT A&Ox4; CALM AND COOPERATIVE WITH CARE. PT RESTING IN BED DURING SHIFT. MOVES IND BED. PT DENIES PAIN, CHEST PAIN, SOB, NAUSEA AND DIZZINESS. PT TO ULTRA SOUND THIS AM FOR PARACENTESIS, PULLED OFF 8L, ALBUMIN ADMIONISTERED POST PARA. H&H MONIOTORED T/O SHIFT. DR SANTIZO AT BEDSIDE THIS EVENING, PLANS FOR POSSIBLE SCOPE TOMORROW. FULL LIQUID DIET TOHIGHT AND NPO AT NOON TOMORROW. NO BM, CONTINUES TO PASS GAS. VSS. NO OTHER ACUTE CHANGES NOTED DURING SHIFT. WILL CONTINUE TO MONITOR UNITL REPORT GIVEN TO ONCOMING RN.+
[2021-07-14 22:01] LABS: Stool Occult Blood Guaiac 1 Pos (Neg)
[2021-07-15 00:30] LABS: Hematocrit 26.1 % (37.0-53.0); Hemoglobin 7.5 g/dL (13.5-17.5)
[2021-07-15 04:20] LABS: BASOPHILS ABSOLUTE AUTO 0.04 K/mm3 (0.00-0.23); BASOPHILS PERCENT AUTO 1 % (0-2); EOSINOPHILS ABSOLUTE AUTO 0.15 K/mm3 (0.00-0.68); EOSINOPHILS PERCENT AUTO 3 % (0-6); Hematocrit 24.9 % (37.0-53.0); Hemoglobin 7.3 g/dL (13.5-17.5); IMMATURE GRAN ABSOLUTE AUTO 0.09 K/mm3 (0.00-0.10); IMMATURE GRAN PERCENT AUTO 2 % (0-1); LYMPHOCYTES PERCENT AUTO 10 % (21-46); MONOCYTES ABSOLUTE AUTO 0.46 K/mm3 (0.16-1.47); MONOCYTES PERCENT AUTO 8 % (4-13); Mean Corpuscular HGB 21.5 pg (26.0-34.0); Mean Corpuscular HGB Conc 29.3 g/dL (31.5-36.5); Mean Corpuscular Volume 74 fL (80-100); NEUTROPHILS ABSOLUTE AUTO 4.41 K/mm3 (1.96-9.15); NEUTROPHILS PERCENT AUTO 77 % (41-73); NRBC ABSOLUTE 0.02 K/mm3 (0.00-0.02); NRBC Auto 0.3 /100 WBC (0.0-0.2); Platelet Count 133 K/mm3 (150-400); RDW Coefficient Variation 22.7 % (11.7-14.2); RDW Standard Deviation 59.4 fL (35.1-46.3); Red Blood Cell Count 3.39 M/mm3 (4.30-5.90); White Blood Cell Count 5.75 K/mm3 (4.00-11.30)
[2021-07-15 04:36] LABS: Albumin, Blood 1.8 g/dL (3.4-5.0); Albumin/Globulin Ratio 0.5 (0.8-1.8); Bilirubin, Total 0.5 mg/dL (0.1-1.0); Bun/Creatinine Ratio 33.9 (12.0-20.0); Calcium, Blood 7.6 mg/dL (8.5-10.1); Creatinine, Blood 2.21 mg/dL (0.60-1.20); Globulin, Blood 3.4 g/dL (2.2-4.0); Total Protein, Blood 5.2 g/dL (6.4-8.2)
--- NOTE | 2021-07-15 06:15 | NUR ---
SHIFT SUMMARY PATIENT A&OX4 AND PLESANT WITH CARE. GEN WEAKNESS AND UP WITH ONE ASSIST AND GAIT BELT PLUS PROSTHETIC FOR RIGHT BKA. Q6H AND H CONTINUE AND REMAINS STABLE. NO BLEEDING NOTED THROUGHOUT SHIFT. ON HOME DOSE OF 2L NC SATING HIGH 90'S. NSR ON THE MONITOR. VSS. TOLERATING CLD. LARGE, HARD BM AFTER DINNER AND GUAIC STOOL SENT. CAME BACK POSITIVE. STOMACH STILL MODERATLY DISTENDED AFTER PARACENTESIS BUT PATIENT MUCH MORE COMFORTABLE. VOIDING WELL PER URINAL. PROTONIX AND SANDOSTATIN RUNNING PER ORDER. NO ACUTE CONCERNS AT THIS TIME. WILL CONTINUE PLAN OF CARE UNTIL REPORT GIVENTO ZACHERY HERMAN.
[2021-07-15 12:30] LABS: Hematocrit 26.5 % (37.0-53.0); Hemoglobin 7.8 g/dL (13.5-17.5)
--- NOTE | 2021-07-15 14:31 | NUR ---
PT TRANSFERED TO [facility] VIA GURNY FROM FLOOR. History, Chart, Medications and Allergies reviewed before start of procedure. Lungs clear T/O to Auscultation. Patient confirms NPO status and agrees with scheduled surgery. Pre-Op teaching done. Pt verbalizes understanding.
--- NOTE | 2021-07-15 14:48 | NUR ---
07/15/21 1448 MIKEY BECKETT History, Chart, Medications and Allergies reviewed before start of procedure. 3-LEAD EKG REVIEWED WITH PHYSICIAN PRIOR TO START OF PROCEDURE. MONITOR INTACT WITH CONTINUOUS PULSE OXIMETRY AND INTERMITTENT BP. O2 VIA POM INTACT THROUGHOUT SEDATION/PROCEDURE. GENERAL WITH DR. CONTRERAS.
--- NOTE | 2021-07-15 17:53 | NUR ---
SHIFT SUMMARY PT HAS BEEN RESTING IN BED, QUIETLY. PT HAS ROUSED EASILY BY VOICE. PT HAS BEEN PLEASANT AND COOPERATIVE WITH CARES. PT HAS DENIED C/O PAIN/DISCOMFORT. PT TRANSFERRED BY STAND-BY ASSIST TO CART FOR TRANSPORT, TOLERATED WELL, C/O WEAKNESS. VSS, NO ACUTE CHANGES TO CURRENT CONDITION.
[2021-07-16 04:51] LABS: BASOPHILS ABSOLUTE AUTO 0.05 K/mm3 (0.00-0.23); BASOPHILS PERCENT AUTO 1 % (0-2); EOSINOPHILS ABSOLUTE AUTO 0.13 K/mm3 (0.00-0.68); EOSINOPHILS PERCENT AUTO 2 % (0-6); Hematocrit 29.6 % (37.0-53.0); Hemoglobin 8.2 g/dL (13.5-17.5); IMMATURE GRAN ABSOLUTE AUTO 0.05 K/mm3 (0.00-0.10); IMMATURE GRAN PERCENT AUTO 1 % (0-1); LYMPHOCYTES ABSOLUTE AUTO 0.53 K/mm3 (0.84-5.20); LYMPHOCYTES PERCENT AUTO 8 % (21-46); MONOCYTES PERCENT AUTO 8 % (4-13); Mean Corpuscular HGB 21.1 pg (26.0-34.0); Mean Corpuscular HGB Conc 27.7 g/dL (31.5-36.5); Mean Corpuscular Volume 76 fL (80-100); NEUTROPHILS PERCENT AUTO 81 % (41-73); NRBC ABSOLUTE 0.03 K/mm3 (0.00-0.02); NRBC Auto 0.5 /100 WBC (0.0-0.2); Platelet Count 144 K/mm3 (150-400); RDW Coefficient Variation 24.2 % (11.7-14.2); RDW Standard Deviation 63.4 fL (35.1-46.3); Red Blood Cell Count 3.88 M/mm3 (4.30-5.90); White Blood Cell Count 6.56 K/mm3 (4.00-11.30)
[2021-07-16 04:58] LABS: Mean Platelet Volume 10.1 fL (9.1-12.4)
[2021-07-16 05:41] LABS: Albumin, Blood 2.7 g/dL (3.4-5.0); Albumin/Globulin Ratio 0.9 (0.8-1.8); Bilirubin, Total 0.6 mg/dL (0.1-1.0); Calcium, Blood 7.7 mg/dL (8.5-10.1); Creatinine, Blood 1.94 mg/dL (0.60-1.20); Total Protein, Blood 5.7 g/dL (6.4-8.2)
--- NOTE | 2021-07-16 12:05 | NUR ---
Pt was assisted to bedside commode after he put on his prosthetic leg.
--- NOTE | 2021-07-16 15:21 | NUR ---
Call from Tawana from day surgery; she is on her way to take pt for EGD.
--- NOTE | 2021-07-16 15:39 | NUR ---
Pt was given breathing tx and then taken for EGD. His is at the bedside.
--- NOTE | 2021-07-16 16:09 | NUR ---
07/16/21 1609 MIKEY BECKETT History, Chart, Medications and Allergies reviewed before start of procedure. 3-LEAD EKG REVIEWED WITH PHYSICIAN PRIOR TO START OF PROCEDURE. MONITOR INTACT WITH CONTINUOUS PULSE OXIMETRY AND INTERMITTENT BP. O2 VIA POM INTACT THROUGHOUT SEDATION/PROCEDURE. GENERAL WITH DR. SORENSON.
--- NOTE | 2021-07-16 16:43 | NUR ---
LEFT ELBOW WITH SKIN ABRASION NOTED. BANDAID PLACED. REPORT GIVEN TO PCU NURSE
--- NOTE | 2021-07-16 18:13 | NUR ---
Pt returned from EGD attempt. He is awake, alert and oriented. Call to Dr. Cronin to ask if Protonix and Octreotide gtt should be both continued. New order received to d/c the octreotide, but continue the protonix gtt. IV on the right antecubital space was discontinued due to leaking at the site. OTherwise, site WNL. AFter about an hour the pt c/o feeling anxious and said that the doctor had told him he could have something for anxiety, after his EGD was complete. HE was given ativan per PRN orders. AT this time, he has eaten and tolerated his clear liquid diet and is sleeping.
--- NOTE | 2021-07-16 21:30 | NUR ---
ASSUMED CARE OF PATIENT AT APPROXIMATELY 1900 FROM BARTOLOME Mccollum RN. PATIENT ALERT AND ORIENTED X4. PATIENT DENIES NUMBNESS, TINGLING, DIZZINESS, NAUSEA, AND PAIN. SR ON TELE; OXYGEN SATURATION ABOVE 90% ON ROOM AIR. PG INFUSING PROTONIX PER ORDER. PATIENT TO BE WATER ONLY AFTER 0600 FOR EGD IN AM. PER REPORT PATIENT ONE ASSIST TO BEDSIDE COMMODE; BKA RIGHT LEG. MEDICAL TELE STATUS.
[2021-07-17 04:18] LABS: BASOPHILS ABSOLUTE AUTO 0.06 K/mm3 (0.00-0.23); BASOPHILS PERCENT AUTO 1 % (0-2); EOSINOPHILS ABSOLUTE AUTO 0.21 K/mm3 (0.00-0.68); EOSINOPHILS PERCENT AUTO 3 % (0-6); Hematocrit 29.3 % (37.0-53.0); Hemoglobin 8.3 g/dL (13.5-17.5); IMMATURE GRAN ABSOLUTE AUTO 0.04 K/mm3 (0.00-0.10); IMMATURE GRAN PERCENT AUTO 1 % (0-1); LYMPHOCYTES ABSOLUTE AUTO 0.41 K/mm3 (0.84-5.20); LYMPHOCYTES PERCENT AUTO 6 % (21-46); MONOCYTES PERCENT AUTO 7 % (4-13); Mean Corpuscular HGB 21.4 pg (26.0-34.0); Mean Corpuscular HGB Conc 28.3 g/dL (31.5-36.5); Mean Corpuscular Volume 76 fL (80-100); NEUTROPHILS ABSOLUTE AUTO 5.61 K/mm3 (1.96-9.15); NEUTROPHILS PERCENT AUTO 82 % (41-73); NRBC ABSOLUTE 0.02 K/mm3 (0.00-0.02); NRBC Auto 0.3 /100 WBC (0.0-0.2); Platelet Count 125 K/mm3 (150-400); RDW Coefficient Variation 24.9 % (11.7-14.2); RDW Standard Deviation 64.2 fL (35.1-46.3); Red Blood Cell Count 3.87 M/mm3 (4.30-5.90); White Blood Cell Count 6.83 K/mm3 (4.00-11.30)
[2021-07-17 04:52] LABS: Albumin, Blood 2.5 g/dL (3.4-5.0); Albumin/Globulin Ratio 0.8 (0.8-1.8); Bilirubin, Total 0.6 mg/dL (0.1-1.0); Bun/Creatinine Ratio 32.3 (12.0-20.0); Calcium, Blood 8.1 mg/dL (8.5-10.1); Creatinine, Blood 1.98 mg/dL (0.60-1.20); Globulin, Blood 3.2 g/dL (2.2-4.0); Potassium, Blood 5.3 mmol/L (3.5-5.5); Total Protein, Blood 5.7 g/dL (6.4-8.2)
--- NOTE | 2021-07-17 06:08 | NUR ---
PATIENT SLEPT ABOUT NINE HOURS LAST NIGHT; NO BM. NO OTHER ACUTE CHANGES.
--- NOTE | 2021-07-17 13:44 | NUR ---
History, Chart, Medications and Allergies reviewed before start of procedure.Pre-Op teaching done. Pt verbalizes understanding.
--- NOTE | 2021-07-17 14:09 | NUR ---
07/17/21 1408 Na Duarte History, Chart, Medications and Allergies reviewed before start of procedure.MONITOR INTACT WITH CONTINUOUS PULSE OXIMETRY,3 LEAD, AND INTERMITTENT BP.O2 VIA N/C INTACT THROUGHOUT SEDATION/PROCEDURE. See Anesthesia record
--- NOTE | 2021-07-17 19:15 | NUR ---
SHIFT SUMMARY PT A/O X4 AND COOPERATIVE OF CARE. PT HAD EGD PERFORMED TODAY, 3 CLIPS PLACED. PT TO GO NPO AFTER MIDNIGHT FOR PROCEDURE TOMORROW. PT VSS THROUGHOUT SHIFT WITH O2 SATS >95% ON RA. PT HAS BOWEL PREP AT BEDSIDE FOR HIM TO DRINK. NO REPORT OF CHEST PAIN/PRESSURE THROUGHOUT SHIFT. NO REPORT OF SOB/DYSPNEA THROUGHOUT SHIFT. PT WAS AT BEDSIDE WHEN PT ARRIVED FROM EGD PROCEDURE, UPDATED ON PT.
--- NOTE | 2021-07-17 20:32 | NUR ---
ASSUMED CARE OF PATIENT AT APPROXIMATELY 1900 FROM KORTNEY Umaña RN. PATIENT ALERT AND ORIENTED X4. PATIENT DENIES NUMBNESS, TINGLING, DIZZINESS, NAUSEA, AND PAIN. SR ON TELE; OXYGEN SATURATION ABOVE 90% ON ROOM AIR. PG TKO. PATIENT STARTED GOLYTLY BOWEL PREP AT 1900; ICE IN LARGE CUPS GIVEN; PATIENT HAS FINISHED HALF BOTTLE SO FAR. PATIENT NPO AT 0600 FOR COLONSCOPY IN AM. PER REPORT PATIENT ONE ASSIST TO BEDSIDE COMMODE BUT PREFERS BEDPAN DUE TO URGENCY WITH BMS; BKA RIGHT LEG. MEDICAL TELE STATUS.
[2021-07-18 04:08] LABS: BASOPHILS ABSOLUTE AUTO 0.06 K/mm3 (0.00-0.23); BASOPHILS PERCENT AUTO 1 % (0-2); EOSINOPHILS ABSOLUTE AUTO 0.28 K/mm3 (0.00-0.68); EOSINOPHILS PERCENT AUTO 4 % (0-6); Hematocrit 29.8 % (37.0-53.0); Hemoglobin 8.4 g/dL (13.5-17.5); IMMATURE GRAN ABSOLUTE AUTO 0.05 K/mm3 (0.00-0.10); IMMATURE GRAN PERCENT AUTO 1 % (0-1); LYMPHOCYTES ABSOLUTE AUTO 0.57 K/mm3 (0.84-5.20); LYMPHOCYTES PERCENT AUTO 8 % (21-46); MONOCYTES ABSOLUTE AUTO 0.63 K/mm3 (0.16-1.47); MONOCYTES PERCENT AUTO 9 % (4-13); Mean Corpuscular HGB 21.3 pg (26.0-34.0); Mean Corpuscular HGB Conc 28.2 g/dL (31.5-36.5); Mean Corpuscular Volume 75 fL (80-100); NEUTROPHILS ABSOLUTE AUTO 5.62 K/mm3 (1.96-9.15); NEUTROPHILS PERCENT AUTO 78 % (41-73); Platelet Count 121 K/mm3 (150-400); RDW Coefficient Variation 25.4 % (11.7-14.2); RDW Standard Deviation 66.2 fL (35.1-46.3); Red Blood Cell Count 3.95 M/mm3 (4.30-5.90); White Blood Cell Count 7.21 K/mm3 (4.00-11.30)
[2021-07-18 04:25] LABS: Albumin, Blood 2.4 g/dL (3.4-5.0); Albumin/Globulin Ratio 0.7 (0.8-1.8); Bilirubin, Total 0.7 mg/dL (0.1-1.0); Bun/Creatinine Ratio 29.3 (12.0-20.0); Calcium, Blood 7.9 mg/dL (8.5-10.1); Creatinine, Blood 2.08 mg/dL (0.60-1.20); Globulin, Blood 3.4 g/dL (2.2-4.0); Potassium, Blood 4.3 mmol/L (3.5-5.5); Total Protein, Blood 5.8 g/dL (6.4-8.2)
--- NOTE | 2021-07-18 06:34 | NUR ---
PATIENT SLEPT ABOUT FIVE HOURS BETWEEN BOWEL MOVEMENTS; STOOL LIQUID BROWN TINTED WITH SEEDS. NO OTHER ACUTE CHANGES. NPO.
--- NOTE | 2021-07-18 18:43 | NUR ---
07/18/21 1843 MIKEY BECKETT History, Chart, Medications and Allergies reviewed before start of procedure. 3-LEAD EKG REVIEWED WITH PHYSICIAN PRIOR TO START OF PROCEDURE. O2 VIA POM INTACT THROUGHOUT SEDATION/PROCEDURE. MONITOR INTACT WITH CONTINUOUS PULSE OXIMETRY AND INTERMITTENT BP. GENERAL WITH DR. AMBROSIO
--- NOTE | 2021-07-18 19:45 | NUR ---
SHIFT SUMMARY PT A/O x4 AND COOPERATIVE OF CARE. VSS THROUGHOUT SHIFT WITH O2 SATS >96% ON ROOM AIR. PT RECIEVED A DOSE OF GOLYTELY FOR PREPORATION FOR PROCEDURE. PT HAD MULTIPLE LIQUID BM'S THAT WERE MUSTARD YELLOW IN COLOR. DR CASTILLO NOTIFIED. PT REMAINED NPO THROUGHOUT THE DAY FOR PROCEDURE. PT WENT FOR PROCEDURE AROUND 1800. NO REPORT OF CHEST PAIN/PRESSURE THROUGHOUT SHIFT. NO REPORT OF SOB/DYSPNEA THROUGHOUT SHIFT.
--- NOTE | 2021-07-18 21:24 | NUR ---
ASSUMED CARE. PATIENT ARRIVED FROM PACU AROUND 1949. WAS IN ROOM. DR. SANTIZO INFORMED HER PROCEDURE WENT WELL, NO SIGNS OF ACTIVE BLEEDING WAS FOUND. HE DOES WANT HIM TO STAY ANOTHER NIGHT FOR A PARACENTESIS TOMORROW BEFORE DISCHARGE. ALDO IS AOX3, DROWSY AND STATES HE IS REAL HUNGRY. LUNG SOUNDS CLEAR, NO COUGH OR CONGESTION. HR SINUS. VS WNL. AFEBRILE. ABDOMIN DISTENDED ROUND, SLIGHTLY SOFT. NO NAUSEA NOTED, NO PAIN. ASKED IF HIS COULD BRING HIM BACK A HAMBURGER, INFORMED HIM YES. WILL DROP OFF FOOD BUT WILL GO HOME FOR THE NIGHT.
[2021-07-19 04:21] LABS: BASOPHILS ABSOLUTE AUTO 0.06 K/mm3 (0.00-0.23); BASOPHILS PERCENT AUTO 1 % (0-2); EOSINOPHILS ABSOLUTE AUTO 0.24 K/mm3 (0.00-0.68); EOSINOPHILS PERCENT AUTO 3 % (0-6); Hematocrit 32.5 % (37.0-53.0); Hemoglobin 9.1 g/dL (13.5-17.5); IMMATURE GRAN ABSOLUTE AUTO 0.04 K/mm3 (0.00-0.10); IMMATURE GRAN PERCENT AUTO 1 % (0-1); LYMPHOCYTES ABSOLUTE AUTO 0.62 K/mm3 (0.84-5.20); LYMPHOCYTES PERCENT AUTO 8 % (21-46); MONOCYTES ABSOLUTE AUTO 0.55 K/mm3 (0.16-1.47); MONOCYTES PERCENT AUTO 7 % (4-13); Mean Corpuscular HGB 21.3 pg (26.0-34.0); Mean Corpuscular Volume 76 fL (80-100); NEUTROPHILS ABSOLUTE AUTO 5.88 K/mm3 (1.96-9.15); NEUTROPHILS PERCENT AUTO 80 % (41-73); Platelet Count 129 K/mm3 (150-400); RDW Coefficient Variation 25.8 % (11.7-14.2); Red Blood Cell Count 4.28 M/mm3 (4.30-5.90); White Blood Cell Count 7.39 K/mm3 (4.00-11.30)
[2021-07-19 05:11] LABS: Albumin, Blood 2.4 g/dL (3.4-5.0); Albumin/Globulin Ratio 0.8 (0.8-1.8); Bilirubin, Total 0.5 mg/dL (0.1-1.0); Bun/Creatinine Ratio 28.4 (12.0-20.0); Calcium, Blood 7.9 mg/dL (8.5-10.1); Creatinine, Blood 2.18 mg/dL (0.60-1.20); Globulin, Blood 3.1 g/dL (2.2-4.0); Potassium, Blood 4.3 mmol/L (3.5-5.5); Total Protein, Blood 5.5 g/dL (6.4-8.2)
--- NOTE | 2021-07-19 06:08 | NUR ---
SHIFT SUMMARY: ARRIVED FROM PACU AT START OF SHIFT. VS HAVE REMAINED WNL ENTIRE SHIFT. PER DR. SANTIZO PROCEDURE WENT WELL, NO SIGNS OF ACTIVE BLEEDING. WENT HOME AND PLANS TO BE BACK TODAY. DR. SANTIZO ALLOWED FOR NORMAL ADA DIET, AND INFORMED HE CAN GO HOME ONCE HOSPITALIST DC'S HIM. BS HAVE AVERAGED 96-130'S THIS SHIFT. NO COVERAGE WAS GIVEN, HELD LONG ACTING DUE TO LOW NUMBER. ATE DINNER WITH NO ABDOMINAL PAIN. ABDOMIN STILL DISTENDED AND TIGHT, BT HYPOACTIVE. NO FURTHER LOOSE STOOLS. PLAN IS FOR ANOTHER PARACENTISIS BEFORE DISCHARGE. ABLE TO MAKE NEEDS KNOWN, USES CALL LIGHT APPROPRIATLY. NO ACUTE CHANGES THIS SHIFT.
[2021-07-19] MEDS ORDERED: ACET325 PO (14:47)
[2021-07-19] MEDS ORDERED: SPIR50 PO (14:49)
--- NOTE | 2021-07-19 16:15 | NUR ---
Discharge Summary: Pt discharged home s/p paracentesis. Albumin and Rocephin administered prior to d/c per MD orders. Discharge instructions provided to pt and , both verbalized understandings. All belongings sent home with pt. Pt in no apparent distress at this time.
== END 2021-07-19 17:08 | disposition home or self-care (01) | DRG 377 ==
LOC: ER 15:56 → ERHOLD 19:46 → PCU 19:46
PROVIDERS: Emergency Medicine; Family Medicine; Physician Assistant; ADMIT Internal Medicine
PROC: 30233N1 Transfusion of Nonautologous Red Blood Cells into Peripheral Vein, Percutaneous Approach (ICD-10-PCS; principal; 2021-07-13)
PROC: 0W9G3ZZ Drainage of Peritoneal Cavity, Percutaneous Approach (ICD-10-PCS; 2021-07-14)
PROC: 0DJ08ZZ Inspection of Upper Intestinal Tract, Via Natural or Artificial Opening Endoscopic (ICD-10-PCS; 2021-07-15)
PROC: 0W9G3ZZ Drainage of Peritoneal Cavity, Percutaneous Approach (ICD-10-PCS; 2021-07-15)
PROC: 0DJ08ZZ Inspection of Upper Intestinal Tract, Via Natural or Artificial Opening Endoscopic (ICD-10-PCS; 2021-07-16)
PROC: 0W3P8ZZ Control Bleeding in Gastrointestinal Tract, Via Natural or Artificial Opening Endoscopic (ICD-10-PCS; 2021-07-17)
PROC: 0DJD8ZZ Inspection of Lower Intestinal Tract, Via Natural or Artificial Opening Endoscopic (ICD-10-PCS; 2021-07-18)
PROC: 0W9G3ZZ Drainage of Peritoneal Cavity, Percutaneous Approach (ICD-10-PCS; 2021-07-19)
DX: K31.82 Dieulafoy lesion (hemorrhagic) of stomach and duodenum (principal); K76.7 Hepatorenal syndrome; K76.6 Portal hypertension; D62 Acute posthemorrhagic anemia; I50.32 Chronic diastolic (congestive) heart failure; N17.9 Acute kidney failure, unspecified; I85.10 Secondary esophageal varices without bleeding; K70.31 Alcoholic cirrhosis of liver with ascites; N18.30 Chronic kidney disease, stage 3 unspecified; F41.9 Anxiety disorder, unspecified; K21.9 Gastro-esophageal reflux disease without esophagitis; Z88.6 Allergy status to analgesic agent; Z88.8 Allergy status to other drugs, medicaments and biological substances; E11.22 Type 2 diabetes mellitus with diabetic chronic kidney disease; E11.42 Type 2 diabetes mellitus with diabetic polyneuropathy; F32.A Depression, unspecified; Z89.511 Acquired absence of right leg below knee; Z87.891 Personal history of nicotine dependence; Z79.4 Long term (current) use of insulin; Z79.899 Other long term (current) drug therapy; I25.2 Old myocardial infarction; Z85.118 Personal history of other malignant neoplasm of bronchus and lung; Z85.828 Personal history of other malignant neoplasm of skin; Z90.49 Acquired absence of other specified parts of digestive tract; F10.11 Alcohol abuse, in remission; Z98.890 Other specified postprocedural states; Z88.0 Allergy status to penicillin; K31.7 Polyp of stomach and duodenum; K64.4 Residual hemorrhoidal skin tags; K57.30 Diverticulosis of large intestine without perforation or abscess without bleeding; K31.819 Angiodysplasia of stomach and duodenum without bleeding
CPT/HCPCS: 0241U; 36415; 36430; 49083; 71045; 80048; 80053; 81001; 82042; 82270; 82272; 82728; 82945; 82947; 83540; 83550; 83735; 84157; 85014; 85018; 85025; 85610; 85730; 86850; 86900; 86901; 86923; 87070; 87077; 87086; 87186; 87205; 89051; 93005; 93010; 94640; 94760; 94762; 96365; 96375; 96376; 99285-25; A9270; C1751; C9113; J0696; J1815; J2001; J2060; J2250; J2354; J2370; J2405; J2704; J2765; J7030; J7040; J7050; J7120; P9016; P9041; P9046

== ENCOUNTER 2021-08-12 10:39 | Day surgery (SDC) | payer MEDICARE ==
[~2021-08-12 10:39] MED LIST changes: +ACET325 PO; +Prozac40 MG PO; +SPIR50 PO
== END 2021-08-12 13:29 | disposition home or self-care (01) ==
LOC: ATC 10:39
DX: K70.31 Alcoholic cirrhosis of liver with ascites (principal)
CPT/HCPCS: 49083; P9046

== ENCOUNTER 2021-08-16 11:58 | Inpatient (IN) | payer MEDICARE ==
[~2021-08-16] VITALS: Ht 177.8 cm; Wt 93.4 kg
[2021-08-16 12:24] LABS: BASOPHILS ABSOLUTE AUTO 0.02 K/mm3 (0.00-0.23); BASOPHILS PERCENT AUTO 0 % (0-2); EOSINOPHILS ABSOLUTE AUTO 0.18 K/mm3 (0.00-0.68); EOSINOPHILS PERCENT AUTO 1 % (0-6); Hematocrit 20.4 % (37.0-53.0); IMMATURE GRAN ABSOLUTE AUTO 0.07 K/mm3 (0.00-0.10); IMMATURE GRAN PERCENT AUTO 1 % (0-1); LYMPHOCYTES ABSOLUTE AUTO 0.28 K/mm3 (0.84-5.20); LYMPHOCYTES PERCENT AUTO 2 % (21-46); MONOCYTES ABSOLUTE AUTO 0.69 K/mm3 (0.16-1.47); MONOCYTES PERCENT AUTO 6 % (4-13); Mean Corpuscular HGB 19.9 pg (26.0-34.0); Mean Corpuscular Volume 74 fL (80-100); Mean Platelet Volume 10.4 fL (9.1-12.4); NEUTROPHILS ABSOLUTE AUTO 11.18 K/mm3 (1.96-9.15); NEUTROPHILS PERCENT AUTO 90 % (41-73); NRBC ABSOLUTE 0.02 K/mm3 (0.00-0.02); NRBC Auto 0.2 /100 WBC (0.0-0.2); Platelet Count 173 K/mm3 (150-400); RDW Coefficient Variation 20.2 % (11.7-14.2); RDW Standard Deviation 54.4 fL (35.1-46.3); Red Blood Cell Count 2.77 M/mm3 (4.30-5.90); White Blood Cell Count 12.42 K/mm3 (4.00-11.30)
[2021-08-16 12:33] LABS: Source, Urine Foley catheter
[2021-08-16 12:37] LABS: Bilirubin, Urine Neg (Neg); Blood, Urine 2+ (Neg); Glucose Qualitative, Urine Neg (Neg); Ketones, Urine Neg (Neg); Leukocyte Esterase, Urine Neg (Neg); Nitrite, Urine Neg (Neg); Protein, Urine Neg (Neg); Specific Gravity, Urine 1.015 (1.003-1.022); Urobilinogen, Urine NORM (Normal)
[2021-08-16 12:42] LABS: Hemoglobin 5.5 g/dL (13.5-17.5)
[2021-08-16 12:50] LABS: Appearance, Urine Clear (Clear); Color, Urine Amber (P-Yellow)
[2021-08-16 12:51] LABS: Bacteria Rare /hpf; Squamous Epithelial Cells Rare /hpf (Few); White Blood Cells, Urine 0-2 /hpf (0-5)
[2021-08-16 12:55] LABS: Albumin, Blood 2.2 g/dL (3.4-5.0); Albumin/Globulin Ratio 0.6 (0.8-1.8); Bilirubin, Total 0.7 mg/dL (0.1-1.0); Bun/Creatinine Ratio 37.1 (12.0-20.0); Calcium, Blood 7.6 mg/dL (8.5-10.1); Creatinine, Blood 3.45 mg/dL (0.60-1.20); Globulin, Blood 3.7 g/dL (2.2-4.0); Potassium, Blood 5.2 mmol/L (3.5-5.5); Total Protein, Blood 5.9 g/dL (6.4-8.2)
[2021-08-16 13:32] LABS: International Normalized Ratio 1.24; Prothrombin Time Results 12.8 Sec (9.7-11.5)
--- NOTE | 2021-08-16 16:48 | NUR ---
ADMIT PT ARRIVED TO ICU AT 1600. PT AWAKE, SAYS YES TO ANYTHING ASKED OF HIM. MAKES ATTEMPTS TO ANSWER OTHER QUESTIONS BUT THE WORDS COME OUT JUMBLED AN STUTTERING . HE WAS ABLE TO EVENTUALLY SAY HIS BIRTHDATE. WEAG GAG REFLEX. LUNGS COARSE. ON 2L/NC WITH SPO2 100%. SR AT 78. 81/54 WITH MAP 64. BOLUS AND BLOOD INFUSING. ABDOMEN DISTENDED, NONTENDER. RECTAL TUBE PLACED TO GIVE LACTULOSE ENEMA. SKIN TEAR ALONG R FA, VASELINE GAUZE AND FOAM DRESSING PLACED OVER IT. SCABS TO L KNEE, OPEN TO AIR. BRUIING TO R HIP. ULCER TO L HEEL, FOAM DRESSING PLACED OVER IT. PICTURES TAKEN OF ALL WOUNDS AND PLACED IN CHART.
[2021-08-16] MEDS ORDERED: Inderal40 MG PO (17:37)
[2021-08-16] MEDS ORDERED: Naltrexone HCl50 MG PO (17:37)
[2021-08-16 20:17] LABS: Hematocrit 21.1 % (37.0-53.0); Hemoglobin 6.3 g/dL (13.5-17.5)
[2021-08-17 03:19] LABS: BASOPHILS ABSOLUTE AUTO 0.03 K/mm3 (0.00-0.23); BASOPHILS PERCENT AUTO 0 % (0-2); EOSINOPHILS ABSOLUTE AUTO 0.13 K/mm3 (0.00-0.68); EOSINOPHILS PERCENT AUTO 1 % (0-6); Hemoglobin 7.9 g/dL (13.5-17.5); IMMATURE GRAN ABSOLUTE AUTO 0.05 K/mm3 (0.00-0.10); IMMATURE GRAN PERCENT AUTO 1 % (0-1); LYMPHOCYTES ABSOLUTE AUTO 0.37 K/mm3 (0.84-5.20); LYMPHOCYTES PERCENT AUTO 4 % (21-46); MONOCYTES ABSOLUTE AUTO 0.59 K/mm3 (0.16-1.47); MONOCYTES PERCENT AUTO 7 % (4-13); Mean Corpuscular HGB 23.4 pg (26.0-34.0); Mean Corpuscular HGB Conc 30.4 g/dL (31.5-36.5); Mean Corpuscular Volume 77 fL (80-100); Mean Platelet Volume 10.5 fL (9.1-12.4); NEUTROPHILS ABSOLUTE AUTO 7.89 K/mm3 (1.96-9.15); NEUTROPHILS PERCENT AUTO 87 % (41-73); NRBC ABSOLUTE 0.05 K/mm3 (0.00-0.02); NRBC Auto 0.6 /100 WBC (0.0-0.2); Platelet Count 117 K/mm3 (150-400); RDW Coefficient Variation 19.2 % (11.7-14.2); RDW Standard Deviation 53.5 fL (35.1-46.3); Red Blood Cell Count 3.38 M/mm3 (4.30-5.90); White Blood Cell Count 9.06 K/mm3 (4.00-11.30)
[2021-08-17 03:37] LABS: Albumin, Blood 1.8 g/dL (3.4-5.0); Albumin/Globulin Ratio 0.5 (0.8-1.8); Bilirubin, Total 1.6 mg/dL (0.1-1.0); Calcium, Blood 6.8 mg/dL (8.5-10.1); Creatinine, Blood 3.11 mg/dL (0.60-1.20); Globulin, Blood 3.3 g/dL (2.2-4.0); Potassium, Blood 4.6 mmol/L (3.5-5.5); Total Protein, Blood 5.1 g/dL (6.4-8.2)
--- NOTE | 2021-08-17 07:02 | NUR ---
Lactalose enema given per eMAR via rectal tube. tolerated well. small amount of stool passed mainly clear liquid. Becoming more oriented throughout night. Repeat H&H after 2nd unit still low, 3rd and 4th units of PRBC transfused without difficulties. Hgb this am 7.9. Alert and oriented at this time.
--- NOTE | 2021-08-17 07:37 | NUR ---
REPORT FROM PM VIRGIL MARTINEZ, SALEINT HAS PARKINSON LIKE TWITCHING, WAKES EASILY AND THEN BACK TO SLEEP, PATIENT NOT IMULSIVE AND IS VERY WEEK TO TRY TO GET OUT OF BED
--- NOTE | 2021-08-17 08:50 | NUR ---
DR GAMEZ IN ROOM WITH THE PATIENT
[2021-08-17 09:23] LABS: Hematocrit 27.4 % (37.0-53.0); Hemoglobin 8.3 g/dL (13.5-17.5)
--- NOTE | 2021-08-17 12:32 | NUR ---
ABD US IN ROOM NOW
--- NOTE | 2021-08-17 18:36 | NUR ---
PATIENT ORIENTED, MORE AWAKE, STUDDER SPEECH, PATIENT CLEARS VOICE, TREMOROUS MOVEMENTS LIKE PARKINSONS. 4L O2 SATS AT 99%, LS DIM BASES, CLEARS CONGESTION, ENCOURAGED COUGHIN. DENEIS CP, NSR. ASCITES IN ABD FIRM AND DISTENDED, HYPOACTIVE BT, STARTED ON MECH SOFT DIET, APPETITE IMPROVED, DENIES NV, TEMP BHATTI TO GRAVITY CLEAR YELLOW URINE. LEFT HEEL ELEVATED, ELBOWS ELEVATED, PATIENT HELPS REPOSITIONING. OCTREOTIDE, PROTONIX INFUSING. LAST H&H IN AM 8.3 AND 27.4, LAB DRAWING ANOTHER H&H NOW. NO GI CONSULT UNTIL THIS EVENINGS AND AMS H&H REVEIWED BEFORE CONSULTING GI PER DR GAMEZ. LACTULOSE CHANGED TO PO. WILL RELAY TO PM RN, PAM
[2021-08-17 19:09] LABS: Hematocrit 29.6 % (37.0-53.0); Hemoglobin 8.8 g/dL (13.5-17.5)
[2021-08-18 03:35] LABS: BASOPHILS ABSOLUTE AUTO 0.01 K/mm3 (0.00-0.23); BASOPHILS PERCENT AUTO 0 % (0-2); EOSINOPHILS ABSOLUTE AUTO 0.13 K/mm3 (0.00-0.68); EOSINOPHILS PERCENT AUTO 2 % (0-6); Hematocrit 30.5 % (37.0-53.0); Hemoglobin 8.9 g/dL (13.5-17.5); IMMATURE GRAN ABSOLUTE AUTO 0.05 K/mm3 (0.00-0.10); IMMATURE GRAN PERCENT AUTO 1 % (0-1); LYMPHOCYTES ABSOLUTE AUTO 0.42 K/mm3 (0.84-5.20); LYMPHOCYTES PERCENT AUTO 5 % (21-46); MONOCYTES ABSOLUTE AUTO 0.58 K/mm3 (0.16-1.47); MONOCYTES PERCENT AUTO 8 % (4-13); Mean Corpuscular HGB 23.4 pg (26.0-34.0); Mean Corpuscular HGB Conc 29.2 g/dL (31.5-36.5); Mean Corpuscular Volume 80 fL (80-100); Mean Platelet Volume 10.4 fL (9.1-12.4); NEUTROPHILS ABSOLUTE AUTO 6.54 K/mm3 (1.96-9.15); NEUTROPHILS PERCENT AUTO 85 % (41-73); NRBC ABSOLUTE 0.02 K/mm3 (0.00-0.02); NRBC Auto 0.3 /100 WBC (0.0-0.2); Platelet Count 138 K/mm3 (150-400); RDW Coefficient Variation 19.9 % (11.7-14.2); RDW Standard Deviation 58.2 fL (35.1-46.3); White Blood Cell Count 7.73 K/mm3 (4.00-11.30)
[2021-08-18 03:52] LABS: Albumin, Blood 1.9 g/dL (3.4-5.0); Albumin/Globulin Ratio 0.5 (0.8-1.8); Bilirubin, Total 0.6 mg/dL (0.1-1.0); Bun/Creatinine Ratio 32.1 (12.0-20.0); Calcium, Blood 7.1 mg/dL (8.5-10.1); Creatinine, Blood 3.18 mg/dL (0.60-1.20); Globulin, Blood 3.6 g/dL (2.2-4.0); Potassium, Blood 4.6 mmol/L (3.5-5.5); Total Protein, Blood 5.5 g/dL (6.4-8.2)
--- NOTE | 2021-08-18 05:33 | NUR ---
Abdomin becoming much more distended over night, very tight and firm. states feels tight and full. Weight increase of 4 kg since yesterday morning. Rectal tube removed due to no liquid stools in tube, lactalose enemas DC'd, no further need for. Remains oriented throughout night.
--- NOTE | 2021-08-18 08:54 | NUR ---
ASSUMED CARE REPORT FROM REGIS HERMAN AT 0700. PT RESTING IN BED. WAKES c VERBAL STIMULI. ORIENTED TO SELF AND PLACE. UNSURE OF DATE, ABLE TO REORIENT, STATES THIS NORMAL FOR PT. ABLE TO MOVE EXT, TREMORS WHEN ARMS EXTENDED. RIGHT BKA. LUNGS CLEAR, 2L VIA NC. DENIES SOB. ABD FIRM, DISTENDED, TYMPANIC. PT REQUESTING PARACENTESIS TODAY, MD UPDATED. DENIES PAIN. OCTREOTIDE AND PROTONIX GTT INFUSING VIA PIV. BHATTI PATENT, DRAINING TO GRAVITY. VSS. WILL CONTINUE TO MONITOR. DR GAMEZ ROUNDED, DISCUSSED PARA THIS SHIFT, STATUS CHANGE AND D/C'ING OCTREOTIDE.
--- NOTE | 2021-08-18 18:20 | NUR ---
SHIFT SUMMARY PT STATUS CHANGED THIS SHIFT, MED s TELE. PARACENTESIS TODAY, 10L OFF. ALBUMIN GIVEN. NO OTHER ACUTE CHANGES. WILL CONTINUE TO MONITOR UNTIL REPORT TO ONCOMING NURSE.
[2021-08-19 05:41] LABS: BASOPHILS ABSOLUTE AUTO 0.03 K/mm3 (0.00-0.23); BASOPHILS PERCENT AUTO 0 % (0-2); EOSINOPHILS ABSOLUTE AUTO 0.22 K/mm3 (0.00-0.68); EOSINOPHILS PERCENT AUTO 3 % (0-6); Hematocrit 31.5 % (37.0-53.0); IMMATURE GRAN ABSOLUTE AUTO 0.04 K/mm3 (0.00-0.10); IMMATURE GRAN PERCENT AUTO 1 % (0-1); LYMPHOCYTES ABSOLUTE AUTO 0.42 K/mm3 (0.84-5.20); LYMPHOCYTES PERCENT AUTO 6 % (21-46); MONOCYTES ABSOLUTE AUTO 0.69 K/mm3 (0.16-1.47); MONOCYTES PERCENT AUTO 10 % (4-13); Mean Corpuscular HGB 23.1 pg (26.0-34.0); Mean Corpuscular HGB Conc 28.6 g/dL (31.5-36.5); Mean Corpuscular Volume 81 fL (80-100); Mean Platelet Volume 10.3 fL (9.1-12.4); NEUTROPHILS ABSOLUTE AUTO 5.51 K/mm3 (1.96-9.15); NEUTROPHILS PERCENT AUTO 80 % (41-73); Platelet Count 139 K/mm3 (150-400); RDW Coefficient Variation 20.4 % (11.7-14.2); RDW Standard Deviation 59.2 fL (35.1-46.3); Red Blood Cell Count 3.89 M/mm3 (4.30-5.90); White Blood Cell Count 6.91 K/mm3 (4.00-11.30)
--- NOTE | 2021-08-19 05:45 | NUR ---
Lactalose given per eMAR. Started having stools, first one being formed, soft. Then becoming loose, diarrhea stools. Total of 12 medium to large stools through out shift.
[2021-08-19 06:04] LABS: Albumin, Blood 2.4 g/dL (3.4-5.0); Albumin/Globulin Ratio 0.9 (0.8-1.8); Bilirubin, Total 0.6 mg/dL (0.1-1.0); Calcium, Blood 7.4 mg/dL (8.5-10.1); Creatinine, Blood 2.85 mg/dL (0.60-1.20); Globulin, Blood 2.7 g/dL (2.2-4.0); Potassium, Blood 4.4 mmol/L (3.5-5.5); Total Protein, Blood 5.1 g/dL (6.4-8.2)
--- NOTE | 2021-08-19 08:52 | NUR ---
ASSUMED CARE REPORT FROM VALENTÍN HERMAN AT 0700. PT RESTING IN BED. A&O X 3. FOLLOWS COMMANDS. MORE ALERT THAN YESTERDAY. STATES HE FEELS AT BASELINE AND READY FOR D/C. LUNGS CLEAR. ABD ROUND, DISTENDED. GOOD APPETITE THIS AM. HELD LACTULOSE D/C MULTIPLE BMS LAST NOC. DR ROA THIS AM. PLAN FOR D/C. PT/OT ORDERED. VSS. WILL CONTINUE TO MONITOR.
[2021-08-19] MEDS ORDERED: LACT10SY PO (11:42)
[2021-08-19] MEDS ORDERED: PANT40 PO (11:43)
--- NOTE | 2021-08-19 12:17 | NUR ---
D/C INSTRUCTIONS REVIEWED c PT AND . MEDS FAXED TO [facility]. IV'D D/C'D AND PRESSURE DRESSINGS APPLIED. PT VERBALIZED UNDERSTANDING OF D/C INSTRUCTIONS. ALL BELONGINGS SINCE HOME c PT. OTD NAD.
== END 2021-08-19 12:24 | disposition home or self-care (01) | DRG 432 ==
LOC: ER 11:58 → PCU 14:20 → ICUE 14:20
PROVIDERS: Emergency Medicine; Family Medicine; ADMIT Hospitalist
PROC: 30233N0 Transfusion of Autologous Red Blood Cells into Peripheral Vein, Percutaneous Approach (ICD-10-PCS; principal; 2021-08-16)
PROC: 0W9G30Z Drainage of Peritoneal Cavity with Drainage Device, Percutaneous Approach (ICD-10-PCS; 2021-08-18)
DX: K70.40 Alcoholic hepatic failure without coma (principal); G92.8 Other toxic encephalopathy; J18.9 Pneumonia, unspecified organism; N17.9 Acute kidney failure, unspecified; J44.0 Chronic obstructive pulmonary disease with (acute) lower respiratory infection; K76.6 Portal hypertension; K70.31 Alcoholic cirrhosis of liver with ascites; D50.0 Iron deficiency anemia secondary to blood loss (chronic); I95.9 Hypotension, unspecified; R68.0 Hypothermia, not associated with low environmental temperature; N18.30 Chronic kidney disease, stage 3 unspecified; E11.65 Type 2 diabetes mellitus with hyperglycemia; E11.22 Type 2 diabetes mellitus with diabetic chronic kidney disease; E11.42 Type 2 diabetes mellitus with diabetic polyneuropathy; K63.89 Other specified diseases of intestine; F32.A Depression, unspecified; J32.9 Chronic sinusitis, unspecified; F17.210 Nicotine dependence, cigarettes, uncomplicated; Z88.8 Allergy status to other drugs, medicaments and biological substances; Z79.4 Long term (current) use of insulin; Z79.899 Other long term (current) drug therapy; Z92.3 Personal history of irradiation; Z85.05 Personal history of malignant neoplasm of liver; Z90.49 Acquired absence of other specified parts of digestive tract; Z98.890 Other specified postprocedural states; Z89.511 Acquired absence of right leg below knee
CPT/HCPCS: 36415; 36430; 49083; 51702; 70450; 71045; 76705; 80053; 81001; 82140; 82272; 82947; 83605; 83735; 84145; 85014; 85018; 85025; 85610; 85730; 86850; 86900; 86901; 86923; 87040; 92610; 93005; 93010; 96365; 96366; 96375; 97165; 97535; 99285-25; A9270; C9113; G0480; J0456; J0696; J1815; J1817; J2354; J2405; J7030; J7050; P9016; P9046

== ENCOUNTER 2021-08-23 15:16 | Inpatient (IN) | payer MEDICARE ==
[~2021-08-23] VITALS: Ht 182.9 cm; Wt 95.2 kg
[~2021-08-23 15:16] MED LIST changes: +LACT10SY PO; +Naltrexone HCl50 MG PO
[2021-08-23 16:43] LABS: BASOPHILS ABSOLUTE AUTO 0.01 K/mm3 (0.00-0.23); BASOPHILS PERCENT AUTO 0 % (0-2); EOSINOPHILS ABSOLUTE AUTO 0.07 K/mm3 (0.00-0.68); EOSINOPHILS PERCENT AUTO 1 % (0-6); Hematocrit 30.9 % (37.0-53.0); Hemoglobin 8.9 g/dL (13.5-17.5); IMMATURE GRAN ABSOLUTE AUTO 0.05 K/mm3 (0.00-0.10); IMMATURE GRAN PERCENT AUTO 1 % (0-1); LYMPHOCYTES ABSOLUTE AUTO 0.44 K/mm3 (0.84-5.20); LYMPHOCYTES PERCENT AUTO 5 % (21-46); MONOCYTES ABSOLUTE AUTO 0.43 K/mm3 (0.16-1.47); MONOCYTES PERCENT AUTO 5 % (4-13); Mean Corpuscular HGB 23.1 pg (26.0-34.0); Mean Corpuscular HGB Conc 28.8 g/dL (31.5-36.5); Mean Corpuscular Volume 80 fL (80-100); NEUTROPHILS ABSOLUTE AUTO 7.29 K/mm3 (1.96-9.15); NEUTROPHILS PERCENT AUTO 88 % (41-73); Platelet Count 108 K/mm3 (150-400); RDW Standard Deviation 64.1 fL (35.1-46.3); Red Blood Cell Count 3.86 M/mm3 (4.30-5.90); White Blood Cell Count 8.29 K/mm3 (4.00-11.30)
[2021-08-23 16:47] LABS: Mean Platelet Volume 10.6 fL (9.1-12.4)
[2021-08-23 16:58] LABS: Ethanol (Alcohol), Blood, Med <3 mg/dL
[2021-08-23 17:07] LABS: Alanine Aminotransfer (ALT/SGP 33 U/L (12-78); Albumin, Blood 2.2 g/dL (3.4-5.0); Albumin/Globulin Ratio 0.6 (0.8-1.8); Alk Phos 337 U/L (50-136); Anion Gap 6 mmol/L (6-16); Aspartate Aminotrans (AST/SGOT 33 U/L (12-37); Bilirubin, Total 0.6 mg/dL (0.1-1.0); Blood Urea Nitrogen 115 mg/dL (8-24); Bun/Creatinine Ratio 37.7 (12.0-20.0); CO2, Blood 18 mmol/L (21-32); Chloride, Blood 111 mmol/L (98-108); Creatinine, Blood 3.05 mg/dL (0.60-1.20); Glomerular Filtration Rate 21 (60-); Glucose, Blood 256 mg/dL (70-99); Potassium, Blood 5.8 mmol/L (3.5-5.5); Sodium, Blood 135 mmol/L (136-145); Total Protein, Blood 6.2 g/dL (6.4-8.2)
[2021-08-23 21:02] LABS: International Normalized Ratio 1.16; Prothrombin Time Results 12.1 Sec (9.7-11.5)
[2021-08-24 01:16] LABS: Calcium, Blood 8.2 mg/dL (8.5-10.1); Creatinine, Blood 2.93 mg/dL (0.60-1.20)
--- NOTE | 2021-08-24 06:23 | NUR ---
CARE ASSUMPTION: PATIENT ARRIVED BY KERWIN FROM ED AT 2130. FOUR STAFF ASSISTED IN SLIDING PATIENT FROM ED GURNEY TO PCU BED. PATIENT OBTUNDED, VSS, RA. STARTED BICARB AND ALBUMIN IV MEDS. DOCUMENTED WOUNDS ON LEFT HEEL AND RIGHT FOREARM. SCATTERED BRUISING AND SCABS ON EXTREMETIES. RAISED HOB FOR COMFORT.
--- NOTE | 2021-08-24 06:30 | NUR ---
SHIFT SUMMARY: PATIENT HAS BEEN HYPOTENSIVE AT TIMES, ALL OTHER VSS. RECTAL TUBE DRAINING TO GRAVITY AND PATENT. PATIENT MOANS AND RESPONDS TO PAINFUL STIMULI. PATIENT ATTEMPTED TO ASSIST IN ROLLING FOR A BED CHANGE BUT ONLY MANAGED TO CROSS HIS ARMS. WILL TRACK STAFF WITH HIS EYES IN HIS WAKE MOMENTS, BUT HAS MOSTLY RESTED FITFULLY. CALLS FOR UPDATES, THIS RN RETURNED CALL AT 0100 AND LEFT A MESSAGE. WILL CONTINUE TO MONITOR AND REPORT TO ONCOMING RN.
[2021-08-24 06:39] LABS: BASOPHILS ABSOLUTE AUTO 0.01 K/mm3 (0.00-0.23); BASOPHILS PERCENT AUTO 0 % (0-2); EOSINOPHILS PERCENT AUTO 2 % (0-6); Hematocrit 25.9 % (37.0-53.0); Hemoglobin 7.5 g/dL (13.5-17.5); IMMATURE GRAN ABSOLUTE AUTO 0.05 K/mm3 (0.00-0.10); IMMATURE GRAN PERCENT AUTO 1 % (0-1); LYMPHOCYTES ABSOLUTE AUTO 0.28 K/mm3 (0.84-5.20); LYMPHOCYTES PERCENT AUTO 5 % (21-46); MONOCYTES ABSOLUTE AUTO 0.37 K/mm3 (0.16-1.47); MONOCYTES PERCENT AUTO 6 % (4-13); Mean Corpuscular HGB 23.2 pg (26.0-34.0); Mean Corpuscular Volume 80 fL (80-100); NEUTROPHILS ABSOLUTE AUTO 5.11 K/mm3 (1.96-9.15); NEUTROPHILS PERCENT AUTO 86 % (41-73); Platelet Count 97 K/mm3 (150-400); RDW Coefficient Variation 21.8 % (11.7-14.2); RDW Standard Deviation 63.3 fL (35.1-46.3); Red Blood Cell Count 3.23 M/mm3 (4.30-5.90); White Blood Cell Count 5.92 K/mm3 (4.00-11.30)
[2021-08-24 06:46] LABS: Mean Platelet Volume 10.8 fL (9.1-12.4)
[2021-08-24 06:55] LABS: Albumin, Blood 2.3 g/dL (3.4-5.0); Albumin/Globulin Ratio 0.6 (0.8-1.8); Bilirubin, Total 0.7 mg/dL (0.1-1.0); Bun/Creatinine Ratio 40.1 (12.0-20.0); Calcium, Blood 8.2 mg/dL (8.5-10.1); Creatinine, Blood 2.87 mg/dL (0.60-1.20); Globulin, Blood 3.6 g/dL (2.2-4.0); Potassium, Blood 4.7 mmol/L (3.5-5.5); Total Protein, Blood 5.9 g/dL (6.4-8.2)
[2021-08-24 07:25] LABS: BASOPHILS PERCENT MAN 0 % (0-2); EOSINOPHILS PERCENT MAN 0 % (0-6); MONOCYTES PERCENT MAN 0 % (4-13); MYELOCYTE ABSOLUTE MAN 1.48 K/mm3 (0.00-0.00); MYELOCYTE PERCENT MAN 25 % (0-0); NEUTROPHILS ABSOLUTE MAN 4.44 K/mm3 (1.96-9.15); SEG NEUTROPHILS PERCENT MAN 75 % (41-73); TOTAL CELLS COUNTED 4
--- NOTE | 2021-08-24 07:29 | NUR ---
ASSUMED CARE OF PATIENT AT APPROX 0700. PT RESPONDING TO VERBAL STIMULI, ORIENTED TO SELF. UNABLE TO MOVE EXTREMITEIS WHEN ASKED. PUPILS BILATER 2mm SLUGGISH RESPONSE. ATTEMPTED TO HAVE PT SWALLOW, MAJOIRTY OF WATER LEAKED OUT OF SIDES OF HIS MOUTH, PT UNABLE TO COUGH BUT AIRWAY SOUNDS CLEAR WITH "AHH". PT HAS RECTAL TUBE IN PLACE. NO S/SX OF DISTRESS NOTED. PT TELE SINUS 80'S; BP SOFT BUT STABLE. LS CLEAR T/O WITH DIMINISHED BASES, SPO2 >90% ON RA. BT HYPOACTIVE T/O; ABD SEVERE DISTENTED, FIRM AND TENDER. SODIUM BICARB GTT INFUSING PER ORDERS. PT HAS PRESSURE ULCER TO LEFT HEEL, MEPILEX IN PLACE. WILL ELEVATED HEEL. R BKA. SKIN FRAGILE, SCATTERED BRUIISNG AND SKIN TEARS NOTED. OTHER VSS. NO OTHER ACUTE CHANGES NOTED. WILL CONTINUE TO MONITOR.
[2021-08-24 09:22] LABS: Source, Urine Straight Cath
[2021-08-24 09:35] LABS: Appearance, Urine Clear (Clear); Bilirubin, Urine Neg (Neg); Blood, Urine 1+ (Neg); Color, Urine Yellow (P-Yellow); Glucose Qualitative, Urine Neg (Neg); Ketones, Urine Neg (Neg); Leukocyte Esterase, Urine Neg (Neg); Nitrite, Urine Neg (Neg); Protein, Urine Neg (Neg); Specific Gravity, Urine 1.015 (1.003-1.022); Urobilinogen, Urine NORM (Normal)
[2021-08-24 09:44] LABS: Bacteria Not Seen /hpf; Hyaline Casts 0-2 /lpf (0-2); Squamous Epithelial Cells Not Seen /hpf (Few); White Blood Cells, Urine 0-2 /hpf (0-5)
[2021-08-24 12:15] LABS: Hematocrit 27.2 % (37.0-53.0); Hemoglobin 7.7 g/dL (13.5-17.5)
--- NOTE | 2021-08-24 15:33 | NUR ---
Spoke with Dr Garcia and Dr Narvaez. Discussed case and concerns. Pt and family would benefit from discussion regarding code status and goals of care including considering hospice. Pt resting in bed with his eyes opened. Pt is very slow to verbally respond and is A&OX1/2. Pt appears to have difficulty with speaking at this time. Pt appears comfortable but frail and lethargic. Spoke with Primary RN Nina and discussed case. Pt more alert today but no orientated. Attempted to call Pt's spouse Kailee and left message with request for a return phone call. Plan: Discuss wishes for code status and goals of care. Palliative Care will remain available.
--- NOTE | 2021-08-24 18:03 | NUR ---
SHIFT SUMMARY PT APPEARS MORE ALERT, ORIENTED TO SELF. PT STUDDERING, GARBLED SPEECH AND SLOW TO RESPOND. NO S/SX OF DISTRESS NOTED. ATTEMPTED TO GIVE SIPS OF WATER, PT SWALLOWING MINIMAL AND THE REST RUNNING OUT OF HIS MOUTH, HELD PO MEDICATIONS, NOTIFIED DR GAMEZ, NEW ORDERS FOR PROTONIX IV. NO OTHER ACUTE CHAGNES NOTED. WILL CONTINUE TO MONITOR UNITL REPORT GIVEN TO ONCOMING RN.
[2021-08-25 04:03] LABS: Hematocrit 26.9 % (37.0-53.0); Hemoglobin 7.9 g/dL (13.5-17.5); Mean Corpuscular HGB 23.7 pg (26.0-34.0); Mean Corpuscular HGB Conc 29.4 g/dL (31.5-36.5); Mean Corpuscular Volume 81 fL (80-100); Platelet Count 104 K/mm3 (150-400); RDW Coefficient Variation 21.8 % (11.7-14.2); RDW Standard Deviation 64.8 fL (35.1-46.3); Red Blood Cell Count 3.33 M/mm3 (4.30-5.90); White Blood Cell Count 6.57 K/mm3 (4.00-11.30)
[2021-08-25 04:04] LABS: Mean Platelet Volume 10.6 fL (9.1-12.4)
[2021-08-25 04:23] LABS: BASOPHILS PERCENT MAN 0 % (0-2); Bun/Creatinine Ratio 42.1 (12.0-20.0); Calcium, Blood 8.5 mg/dL (8.5-10.1); Creatinine, Blood 2.73 mg/dL (0.60-1.20); EOSINOPHILS ABSOLUTE MAN 0.26 K/mm3 (0.00-0.68); EOSINOPHILS PERCENT MAN 4 % (0-6); LYMPHOCYTES ABSOLUTE MAN 0.39 K/mm3 (0.84-5.20); LYMPHOCYTES PERCENT MAN 6 % (21-46); MONOCYTES ABSOLUTE MAN 0.39 K/mm3 (0.16-1.47); MONOCYTES PERCENT MAN 6 % (4-13); NEUTROPHILS ABSOLUTE MAN 5.51 K/mm3 (1.96-9.15); Potassium, Blood 4.5 mmol/L (3.5-5.5); SEG NEUTROPHILS PERCENT MAN 84 % (41-73); TOTAL CELLS COUNTED 100
--- NOTE | 2021-08-25 07:28 | NUR ---
ALERT AND ORIENTED X 2, PT WAS MORE AWAKE. . VSS. RECTAL TUBE PLACED LACTULOSE ENEMAS ADMINISTERED PER eMAR PTTOLERATED WELL. DENIES PAIN. DISCUSSED PLAN OF CARE WITH PATIENT , VERBALIZED UNDERSTANDING. CALL LIGHT WITHIN REACH AND SIDE RAIL X3.
--- NOTE | 2021-08-25 09:44 | NUR ---
Case Conference Note Spoke with Primary RN Nina and Dr Garcia. Discussed case and concerns. Pt would benefit from considering hospice. Pt is more alert and somewhat orientated. Pt appears to understand his current health. Hospice and homehealth discussed by Dr Garcia. Attempted to contact Pt's spouse Kailee. Left message on voicemail with requesst for a return phone call. Palliative Care will remain available.
--- NOTE | 2021-08-25 10:05 | NUR ---
ASSUMED CARE OF PATIENT AT APPROX 0700. PT ALERT, ORIENTED TO PERSON, FOLLOWING DIRECTIONS, SURROUNDING; STATES HE IS AT [facility] IN [place], IS UNSURE OF DATE, PRESIDENT AND EVENT. PT IS USING EXTREMITIES, HOWEVER WEAK T/O; JERKING/TWITICHING NOTED. PT ABLE TO SWALLOW WATER FROM STRAW AND MEDICATION THIS AM; NOTIFIED MD TEAM, NEW ORDERS FOR ST EVAL, PT STARTED ON DIET. TELE SINUS 80, BP STABLE. LS CLEAR DIM TO BASES; SPO2 >90% ON RA. BT HYPOACITIVE, RECTAL TUBE IN PLACE FOR LIQUID STOOL AND LACTULOSE ENEMA. OTHER VSS. NO OTHER ACUTE CHANGES NOTED. WILL CONTINUE TO MONITOR.
--- NOTE | 2021-08-25 10:26 | NUR ---
NOTIFIED DR GAMEZ OF [facility]; NEW ORDERS ENTERED.
--- NOTE | 2021-08-25 11:16 | NUR ---
Pt resting in bed upon arrival. Pt more alert today. Pt's spouse Kailee at bedside. Provided update on plan of care. Engaged in conversation regarding goals of care. Discussed the importance of considering one's own goals and values. Educated on disease process and discussed hospice as an option. Educated on hospice philosophy with V/U made by spouse and Pt. Both Kailee and Pt would like to pursue hospice. Discussed hospice agencies to choose from with Pt and family electing agency that is available the soonest. Discussed the option for PleurX drain with Pt in agreement. Offered therapeutic listening and answered questions. No other concerns reported at this time. Spoke with Dr Garcia and she will place consult for drain placement. Palliative Care will remain available.
--- NOTE | 2021-08-25 18:03 | NUR ---
SHIFT SUMMARY PLANS FOR PLEURX DRAING PLACEMENT TO ABD TOMORROW, NPO AFTER MIDNIGHT WITH DR PRATER. PT CONTINUES TO BE ALERT T/O SHIFT, ORIENTED TO PERSON, FAMILY, SURROUNDING AND FOLLOWING DIRECTION. TWITCHING AND JERKING HAS DECREASED. PT DENIES PAIN, CHEST PAIN, SOB, NAUSEA AND DIZZINESS. RECTAL TUBE IN PLACE, DRAINING MINIMAL LIQUIDS STOOL THIS EVENING. PT HAS CONDOM CATH IN PLACE. NO S/SX OF DISTRESS NOTED T/O SHIFT. NO OTHER ACUTE CHANGES. WILL CONTINUE TO MONITOR UNTIL REPORT GIVEN TO ONCOMING RN.
[2021-08-26 03:38] LABS: BASOPHILS ABSOLUTE AUTO 0.02 K/mm3 (0.00-0.23); BASOPHILS PERCENT AUTO 0 % (0-2); EOSINOPHILS ABSOLUTE AUTO 0.06 K/mm3 (0.00-0.68); EOSINOPHILS PERCENT AUTO 1 % (0-6); Hematocrit 31.2 % (37.0-53.0); IMMATURE GRAN ABSOLUTE AUTO 0.06 K/mm3 (0.00-0.10); IMMATURE GRAN PERCENT AUTO 1 % (0-1); LYMPHOCYTES ABSOLUTE AUTO 0.23 K/mm3 (0.84-5.20); LYMPHOCYTES PERCENT AUTO 2 % (21-46); MONOCYTES PERCENT AUTO 6 % (4-13); Mean Corpuscular HGB 23.1 pg (26.0-34.0); Mean Corpuscular HGB Conc 28.8 g/dL (31.5-36.5); Mean Corpuscular Volume 80 fL (80-100); NEUTROPHILS ABSOLUTE AUTO 9.18 K/mm3 (1.96-9.15); NEUTROPHILS PERCENT AUTO 90 % (41-73); Platelet Count 137 K/mm3 (150-400); RDW Standard Deviation 64.5 fL (35.1-46.3); White Blood Cell Count 10.15 K/mm3 (4.00-11.30)
[2021-08-26 03:52] LABS: Mean Platelet Volume 10.3 fL (9.1-12.4)
[2021-08-26 03:55] LABS: Bun/Creatinine Ratio 39.8 (12.0-20.0); Calcium, Blood 8.1 mg/dL (8.5-10.1); Creatinine, Blood 2.79 mg/dL (0.60-1.20)
--- NOTE | 2021-08-26 07:24 | NUR ---
PT MORE ALERT COMPARE TO PREVIOUS SHIFT, ORIENTED X3 UNSURE OF DATE AND TIME. PT REPORT NAUSEA , ZOFRAN GIVEN PER eMAR. npo midnight pending drain place. call light within reach , side rail up x3.
[2021-08-26 10:18] LABS: Influenza A, PCR NEGATIVE (NEGATIVE); Influenza B, PCR NEGATIVE (NEGATIVE); Resp Syncytial Virus, PCR NEGATIVE (NEGATIVE); SARS-Cov-2 (COVID-19) PCR, MMC NEGATIVE (NEGATIVE)
[2021-08-26 10:46] LABS: International Normalized Ratio 1.21; Prothrombin Time Results 12.5 Sec (9.7-11.5)
--- NOTE | 2021-08-26 13:56 | NUR ---
Late Entry from 08/26/2021 at 1230: Met with patient and patient's (Kailee Alarcon) to further hospice services and election of [facility]. Patient and are agreeable to the above. Discussed what hospice is (reserved for patients with a terminal diagnosis with life expectancy of 6 months or less). Discussed that some patients exceed the 6 months expectancy and stay on service while other patients may stabilize and come off hospice. Patient and verbalized understanding of the above. Discussed with patient and that hospice service focuses on quality of life at the end of life and that rather than measuring the quantity of days, the quality of those days would be measured. Discussed with patient and that with hospice service the goal would be to keep the patient out of the hospital and comfortable by managing symptoms at home. Patient and verbalized understanding. Discussed the people, prescriptions, and equipment of hospice. People- discussed the team of people and their roles (RNs, chaplains, therapists, LCSWs, CNAs, and volunteers) that would be there to support not only the patient but also their family during this time. Explained to the patient and that the team would be custom tailored to the patient needs during this time. Patient and verbalized understanding. Prescriptions- discussed that we utilize a mail order pharmacy ([facility]) to provide medications related to the hospice diagnosis and for symptom management. All other medications that patient chose to stay on would be patient's and/or patient's family's responsibility to provide and pay for. Patient and verbalized understanding. Discussed that upon discharge patient would be given three prescriptions, one for morphine 20mg/mL #30mL (0.25mL - 1mL PO/SL Q1H PRN SOB/pain), one for lorazepam 0.5mg #20 (1 - 2 PO Q4H PRN anxiety), and one for hyoscyamine 0.125mg SL tablets #30 (1 SL Q2H PRN secretions). Explained to the patient and that as patient would not yet be admitted to hospice service at the time of discharge those prescriptions would be patient/patient's family's responsibility to fill and pay for. Patient and verbalized understanding. Equipment- discussed with patient and that we contract through [facility] to provide DME such as hospital beds, commodes, etc. to patient. At this time DME is not being ordered and will be ordered by the admitting nurse. Patient and verbalized understanding. Discussed with patient and that once patient was admitted onto hospice services the goal would be for them to contact us ([facility]) over contacting 911 or presenting back to the hospital/ED. Patient and verbalized understanding. Discussed the tentative discharge plans for today- 08/26/2021 after pleurx placement with preferred method of transport- private vehicle ( will transport patient home). Patient and verbalized understanding. Offered a chance for patient and to ask questions regarding the above of which there were none. Will continue to monitor and follow as appropriate for discharge. Melissa Galvez Referral Liaison
--- NOTE | 2021-08-26 14:15 | NUR ---
Pt resting in bed upon arrival. [facility] liason Melissa just finishing her visit. Discussed considering completing a POLST with Pt and spouse agreeable. Discussed each section to complete and educated on life sustaining measures. Assisted Pt in completing POLST with Pt wishes for DNR and Comfort Measures Only. Obtained copies of POLST (copy to Melissa, and delivered copy to medical records). Returned orginal POLST to spouse Milka with instructions to hang on refridgerator at home. Pt denies pain and dyspnea at this time. Pt to have PleurX drain placed this afternoon and will D/C home. [facility] to admit onto services tomorrow. Provided easy to watch educational video on PleurX drain. Pt and spouse report no concerns at this time. Palliative Care will remain available.
--- NOTE | 2021-08-26 15:02 | NUR ---
PT TRANSFERED VIA GURNY FROM PCU. History, Chart, Medications and Allergies reviewed before start of procedure. Lungs clear T/O to Auscultation. Patient confirms NPO status and agrees with scheduled surgery. Pre-Op teaching done. Pt verbalizes understanding. Patient States Post-Procedure ride home has been arranged.
--- NOTE | 2021-08-26 17:17 | NUR ---
Patient is to discharge after pleurx placement (08/26/2021 at 1530) with orders for hospice. Patient's (Kailee Alarcon) will provide transportation to patient's residence this evening. Notified nurse manager primary care (Amrita Gonzalez), scoop filler (Emma Salinas), and bedside RN (Julienne Capellan) of the above. All are agreeable to the above. Requested discharge orders from hospitalist (Dr. Peter). Provided hard copy prescriptions for morphine and lorazepam to patient's (Kailee Alarcon) on Tuesday- 08/26/2021. Faxed copies of discharge order and med list to [facility] amusement machine mechanic. No further interventions required. Melissa Galvez Referral Liaison
--- NOTE | 2021-08-26 18:02 | NUR ---
DISHCARGE SUMMARY: PT IS DROWSY BUT EASILY AROUSED WITH NOSE, ORIENTED X 3. NPO FOR PROCEDURE THIS AFTERNOON. TELEMETRY UNREMARKABLE. PALATIVE CARE ROUNDING TO EVALUATE PT AND SPEAK WITH , WHO IS PRAIMRY GAS LEAK INSPECTOR. BHATTI CATHETER DRAINING CLEAR YELLOW URINE WITHOUT DIFFICUTLY. RECTAL TUBE IN PLACE PUTTING OUT LIQUID BORWN STOOL. TONI HERMAN PROVIDED DISCHARGE EDUCATION FOR AND PT.
--- NOTE | 2021-08-26 18:06 | NUR ---
D/C EDUCATION: PT TO BE D/C HOME WITH HOSPICE, PER FAMILY REQUEST BHATTI CATHETER AND RECTAL TUBE WILL REMAIN IN PLACE AT D/C. WAS EDCUATED ON RECTAL TUBE MAINTENCE, REMOVAL, AND BAG CHANGE AND EXPRESSED UNDERSTANDING. WAS ALSO EDUCATED ABOUT BHATTI MAINTENCE AND DRAINING, WHICH SHE ALSO EXPRESSED UNDERSTANDING. PROVIDED WITH EXTRA ATTENDS, CHUCKS, GLOVES, URINAL, WIPES, AND RECTAL TUBE BAGS.
== END 2021-08-26 19:05 | disposition home or self-care (01) | DRG 441 ==
LOC: ER 15:16 → PCU 20:16
PROVIDERS: Family Medicine; Physician Assistant; Surgery; ADMIT Internal Medicine
PROC: 0W9F30Z Drainage of Abdominal Wall with Drainage Device, Percutaneous Approach (ICD-10-PCS; principal; 2021-08-26 13:30)
DX: K72.90 Hepatic failure, unspecified without coma (principal); G93.41 Metabolic encephalopathy; D62 Acute posthemorrhagic anemia; N17.9 Acute kidney failure, unspecified; C22.7 Other specified carcinomas of liver; E72.4 Disorders of ornithine metabolism; K92.2 Gastrointestinal hemorrhage, unspecified; K70.31 Alcoholic cirrhosis of liver with ascites; N18.30 Chronic kidney disease, stage 3 unspecified; J44.9 Chronic obstructive pulmonary disease, unspecified; I95.9 Hypotension, unspecified; E11.65 Type 2 diabetes mellitus with hyperglycemia; E11.22 Type 2 diabetes mellitus with diabetic chronic kidney disease; Z79.4 Long term (current) use of insulin; Z20.822 Contact with and (suspected) exposure to COVID-19; E88.09 Other disorders of plasma-protein metabolism, not elsewhere classified; F32.A Depression, unspecified; E11.21 Type 2 diabetes mellitus with diabetic nephropathy; B19.20 Unspecified viral hepatitis C without hepatic coma; Z90.49 Acquired absence of other specified parts of digestive tract; Z89.511 Acquired absence of right leg below knee; F17.210 Nicotine dependence, cigarettes, uncomplicated; R27.8 Other lack of coordination; R25.1 Tremor, unspecified; R41.0 Disorientation, unspecified; Z88.8 Allergy status to other drugs, medicaments and biological substances
CPT/HCPCS: 0241U; 36415; 70450; 71045; 80048; 80053; 81001; 82140; 82947; 85014; 85018; 85025; 85610; 92610; 93005; 93010; 96374; 99285-25; A9270; C1769; C9113; G0480; J0610; J0690; J0696; J1650; J1815; J2250; J2405; J3010; J7030; J7120; P9046